=== PATIENT | male | born 1975 | race Caucasian/White ===

== ENCOUNTER 2016-10-23 04:27 | Inpatient (IN) | payer MEDICAID ==
[2016-10-23] MEDS ORDERED: Sodium Chloride 0.9% 1,000 ML IV ONE (05:05)
[2016-10-23] MEDS ORDERED: Ondansetron 4 MG/2 ML SDV IVPUSH ONE (05:05)
[2016-10-23] MEDS ORDERED: Ketorolac 30 MG/ML SDV IVPUSH ONE (05:05)
[2016-10-23 05:23] LABS: CHLORIDE,CL 97 mmol/L (98-110); SODIUM,NA 137 mmol/L (136-146)
[2016-10-23] MEDS ORDERED: Iopamidol 755 MG/ML 500 ML Multipack Bottle IVPUSH STA (05:36)
--- NOTE | 2016-10-23 06:18 | EDM.PDOC ---
ED HPI GENERAL MEDICAL PROBLEM - General Chief Complaint: Abdominal Pain Stated Complaint: PANCREATITIS Time Seen by Provider: 10/23/16 06:16 - History of Present Illness INITIAL COMMENTS - FREE TEXT/NARRATIVE: HISTORY AND PHYSICAL: History of present illness: Patient is a 41-year-old male tonsilliths or abdominal pain patient has history of pancreatitis states it started yesterday he said equivocal nausea denies vomiting fever chills diarrhea chest pain shortness of breath or other concern Review of systems: As per history of present illness and below otherwise all systems reviewed and negative. Past medical history: As per history of present illness and as reviewed below otherwise noncontributory. Surgical history: As per history of present illness and as reviewed below otherwise noncontributory. Social history: No reported history of drug or alcohol abuse. Family history: As per history of present illness and as reviewed below otherwise noncontributory. Physical exam: HEENT: Atraumatic, normocephalic, pupils reactive, negative for conjunctival pallor or scleral icterus, mucous membranes moist, throat clear, neck supple, nontender, trachea midline. Lungs: Clear to auscultation, breath sounds equal bilaterally, chest nontender. Heart: S1S2, regular, negative for clicks, rubs, or JVD. Abdomen: Soft, nondistended, no localized tenderness. Negative for masses or hepatosplenomegaly. Negative for costovertebral tenderness. Pelvis: Stable nontender. Genitourinary: Deferred. Rectal: Deferred. Extremities: Atraumatic, negative for cords or calf pain. Neurovascular unremarkable. Neuro: Awake, alert, oriented. Cranial nerves II through XII unremarkable. Cerebellum unremarkable. Motor and sensory unremarkable throughout. Exam nonfocal. Diagnostics: CBC CMP lipase UA CT abdomen and pelvis Therapeutics: Normal saline 1 L bolus Zofran 4 mg IV Toradol 30 mg IV Impression: #1 abdominal pain Definitive disposition and diagnosis as appropriate pending reevaluation and review of above. mid abdominal Pain Score (Numeric/FACES): 7 - Related Data Allergies Allergy/AdvReac Type Severity Reaction Status Date / Time Penicillins Allergy Cannot Verified 10/23/16 04:31 Remember Home Meds: Home Meds amLODIPine [Norvasc] 10 mg PO DAILY #30 tablet 03/07/15 [Rx] Pregabalin [Lyrica] 125 mg PO BID 10/23/16 [History] Venlafaxine HCl [Venlafaxine ER] 10/23/16 [History] chlordiazePOXIDE [Librium] 5 mg PO ASDIRECTED 10/23/16 [History] cloNIDine HCl [Catapres] 0.1 mg PO BID 10/23/16 [History] Past Medical History HEENT History: Reports: None Cardiovascular History: Reports: Hypertension Respiratory History: Reports: Pneumonia, recurrent Other Respiratory History: Pneumonia Gastrointestinal History: Reports: Pancreatitis Other Gastrointestinal History: Necrotizing Pancreatitis Genitourinary History: Reports: None Other Genitourinary History: vasectomy 13 years ago Musculoskeletal History: Reports: Fracture Other Musculoskeletal History: arm Neurological History: Reports: None Psychiatric History: Reports: Anxiety, Depression Endocrine/Metabolic History: Reports: None Hematologic History: Reports: None Immunologic History: Reports: None Oncologic (Cancer) History: Reports: None Dermatologic History: Reports: None - Infectious Disease History Infectious Disease History: Reports: Chicken pox - Past Surgical History Head Surgeries/Procedures: Reports: None HEENT Surgical History: Reports: Oral surgery, Other (see below) Other HEENT Surgeries/Procedures: wisdom tooth taken out. Cardiovascular Surgical History: Reports: None Respiratory Surgical History: Reports: None GI Surgical History: Reports: None Male Surgical History: Reports: Vasectomy Endocrine Surgical History: Reports: None Neurological Surgical History: Reports: None Musculoskeletal Surgical History: Reports: Arthroscopic knee, Other (see below) Other Musculoskeletal Surgeries/Procedures:: Knee surgery two months ago Oncologic Surgical History: Reports: None Social & Family History - Family History Family Medical History: Noncontributory HEENT: Reports: None Cardiac: Reports: Heart failure Respiratory: Reports: Asthma GI: Reports: None : Reports: None OBGYN: Reports: None Musculoskeletal: Reports: None Neurological: Reports: None Psychiatric: Reports: Anxiety Endocrine/Metabolic: Reports: Diabetes, type II Hematologic: Reports: None Immunologic: Reports: None Dermatologic: Reports: None Oncologic: Reports: Colon - Tobacco Use Smoking Status *Q: Current Every Day Smoker Years of Tobacco use: 25 Packs/Tins Daily: 1 Used Tobacco, but Quit: No Second Hand Smoke Exposure: Yes - Caffeine Use Caffeine Use: Reports: None - Alcohol Use Days Per Week of Alcohol Use: 3 Number of Drinks Per Day: 1 Total Drinks Per Week: 3 - Recreational Drug Use Recreational Drug Use: Yes Drug Use in Last 12 Months: Yes Recreational Drug Type: Reports: Marijuana/Hashish Other Recreational Drug Type: "pot" Recreational Drug Use Frequency: Weekly Recreational Drug Last Use: 06/18/16 ED ROS GENERAL - Review of Systems Review Of Systems: ROS reveals no pertinent complaints other than HPI. ED EXAM, GENERAL - Physical Exam Exam: See Below (See dictation) Course - Vital Signs Last Recorded V/S: Last Vital Signs Temp 36.4 C 10/23/16 04:40 Pulse 79 10/23/16 04:40 Resp 16 10/23/16 04:40 BP 133/89 10/23/16 04:40 Pulse Ox 97 10/23/16 04:40 - Orders/Labs/Meds Orders: Active Orders 24 hr Category Date Time Status Abdomen Pelvis w Cont [CT] Stat Exams 10/23/16 05:05 Taken Labs: Laboratory Tests 10/23/16 10/23/16 10/23/16 Range/Units 04:57 04:57 06:05 WBC 7.96 (4.0-11.0) K/uL RBC 5.29 (4.50-5.90) M/uL Hgb 16.6 (13.0-17.0) g/dL Hct 46.9 (38.0-50.0) % MCV 88.7 (80.0-98.0) fL MCH 31.4 (27.0-32.0) pg MCHC 35.4 (31.0-37.0) g/dL RDW Std Deviation 42.6 (28.0-62.0) fl RDW Coeff of Conrad 13 (11.0-15.0) % Plt Count 197 (150-400) K/uL MPV 10.90 (7.40-12.00) fL Neut % (Auto) 60.8 (48.0-80.0) % Lymph % (Auto) 31.7 (16.0-40.0) % [place]oca % (Auto) 4.6 (0.0-15.0) % Eos % (Auto) 1.9 (0.0-7.0) % Baso % (Auto) 1.0 (0.0-1.5) % Neut # 4.8 (1.4-5.7) K/uL Lymph # 2.5 H (0.6-2.4) K/uL Moca # 0.4 (0.0-0.8) K/uL Eos # 0.2 (0.0-0.7) K/uL Baso # 0.1 (0.0-0.1) K/uL Nucleated RBC % 0.0 /100WBC Nucleated RBCs # 0 K/uL Sodium 137 (136-146) mmol/L Potassium 3.8 (3.5-5.1) mmol/L Chloride 97 L (98-110) mmol/L Carbon Dioxide 22 (21-31) mmol/L BUN 11 (6.0-23.0) mg/dL Creatinine 1.0 (0.6-1.5) mg/dL Est Cr Clr Drug Dosing 113.40 mL/min Estimated GFR (MDRD) > 60.0 ml/min Glucose 176 H (60-110) mg/dL Calcium 9.6 (8.8-10.8) mg/dL Total Bilirubin 0.6 (0.1-1.5) mg/dL AST 131 H (5-40) IU/L ALT 170 H (8-54) IU/L Alkaline Phosphatase 51 (40-150) Total Protein 8.0 (6.0-8.0) g/dL Albumin 4.6 (3.5-5.0) g/dL Globulin 3.4 (2.0-3.5) g/dL Albumin/Globulin Ratio 1.4 (1.3-2.8) Amylase 181 H (10-90) U/L Lipase 250 H (7-80) U/L Urine Color YELLOW Urine Appearance CLEAR Urine pH 5.0 (5.0-8.0) Ur Specific [place] 1.025 (1.001-1.035) Urine Protein NEGATIVE (NEGATIVE) mg/dL Urine Glucose (UA) 100 H (NEGATIVE) mg/dL Urine Ketones TRACE H (NEGATIVE) mg/dL Urine Occult Blood NEGATIVE (NEGATIVE) Urine Nitrite NEGATIVE (NEGATIVE) Urine Bilirubin NEGATIVE (NEGATIVE) Urine Urobilinogen 0.2 (<2.0) EU/dL Ur Leukocyte Esterase NEGATIVE (NEGATIVE) Urine RBC NONE SEEN (0-2/HPF) Urine WBC NONE SEEN (0-5/HPF) Ur Epithelial Cells RARE (NONE-FEW) Urine Bacteria RARE (NEGATIVE) Meds: Medications Discontinued Medications Generic Name Dose Route Start Last Admin Trade Name Freq PRN Reason Stop Dose Admin Hydromorphone HCl 1 mg 10/23/16 06:45 Dilaudid IVPUSH 10/23/16 06:46 ONETIME ONE Sodium Chloride 1,000 mls @ 999 mls/hr 10/23/16 05:05 10/23/16 05:15 Normal Saline IV 10/23/16 06:05 999 mls/hr STAT ONE Administration Iopamidol 100 ml 10/23/16 05:36 10/23/16 05:37 Isovue Multipack-370 (76%) IVPUSH 10/23/16 05:37 100 ml ONETIME STA Administration Ketorolac Tromethamine 30 mg 10/23/16 05:05 10/23/16 05:17 Toradol IVPUSH 10/23/16 05:06 30 mg ONETIME ONE Administration Ondansetron HCl 4 mg 10/23/16 05:05 10/23/16 05:16 Zofran IVPUSH 10/23/16 05:06 4 mg ONETIME ONE Administration Departure - Departure Time of Disposition: 06:18 Disposition: Admitted As Inpatient 67 Condition: good Clinical Impression: Pancreatitis Referrals: Prasanth Verma MD [Primary Care Provider] - Forms: ED Department Discharge - My Orders Last 24 Hours: My Active Orders 10/23/16 05:05 Abdomen Pelvis w Cont [CT] Stat - Assessment/Plan Last 24 Hours: My Active Orders 10/23/16 05:05 Abdomen Pelvis w Cont [CT] Stat
[2016-10-23] MEDS ORDERED: HYDROmorphone 1 MG/ML Syringe IVPUSH ONE (06:45)
[2016-10-23] MEDS: Sodium Chloride 0.9% 1,000 ML IV SCH ×5 (08:35→22:11)
[2016-10-23] MEDS: HYDROmorphone 2 MG/ML Syringe IVPUSH PRN ×7 (08:35→22:08)
--- NOTE | 2016-10-23 09:40 | PCM.HP ---
<Zoe James M - Last Filed: 10/23/16 11:54> H&P History of Present Illness - General Date of Service: 10/23/16 Admit Problem/Dx: Admission Diagnosis/Problem Admission Diagnosis/Problem Pancreatitis Source of Information: Patient History Limitations: Reports: No limitations - History of Present Illness Initial Comments - Free Text/Narative: This 41 year old male well known to our facility for alcholic induced pancreatitis presented to the ED this morning with complaints of worsening epigastric pain. He reports this pain started yesterday afternoon and progressively worsened. He has continued to drink, reporting he drinks 1 pint of vodka/day but not on a daily basis. He could drink more or less than that as well. He has been following up with Dr. Verma in the clinic as well as with Samia Shultz NP. He was placed on LIbruin 5 mg TID PRN, which he rarely takes. HCTZ for BP but he does not like because "I get cotton mouth from". Lyrica was also started, which he feels has made his bilateral lower leg neuropathy a lot better, and is very please with this. He contiunes to smoke 1- 2 cigarettes daily, marijuana intermittently and drinking as stated above. He was discussing inpatient treatment with Dr. Verma, in [place] but has not made a commitment yet. He is due to follow up with Dr. Verma on october 30 and he is hoping to then make arrnagements to go to [place] for treatment. He reports he has not been in any MVC and physical altercations. He does report he falls frequently due to the neuropathy and drinking heavily. No fall that he can remember recently where he injury is RUQ. He does not and has not been taking any Tylenol. In the ED WBC WNL, BUN 11 Cr 1.0. Ua negative. Amylase 181, Lipase 250. AST 13, ALT 170. Bilirubin 0.6 Alk phos 51. Abd/Pelvis CT revealed mild acute uncomplicated pancreatitis with mild edema present about the pancreatic hed, no lesions and no fluid collection. There was noted a "relatively new small linear area of low attenuation in the anterior medial right liver lobe, has the characteristic appearance of a laceration vs atypical appearance of a focal fatty inflammation, no perihepatic fluid collections". the remainder of the exam was unremarkable. He was admitted from ED for acute alcoholic pancreatitis. mid abdominal Pain Score (Numeric/FACES): 3 - Related Data Allergies/Adverse Reactions: Allergies Allergy/AdvReac Type Severity Reaction Status Date / Time Penicillins Allergy Cannot Verified 10/23/16 04:31 Remember Home Medications: Home Meds amLODIPine [Norvasc] 10 mg PO DAILY #30 tablet 03/07/15 [Rx] Hydrochlorothiazide 25 mg PO DAILY 10/23/16 [History] Pregabalin [Lyrica] 150 mg PO BID 10/23/16 [History] Venlafaxine HCl [Venlafaxine HCl] 75 mg PO BID 10/23/16 [History] chlordiazePOXIDE HCl [Chlordiazepoxide HCl] 10 mg PO TID PRN 10/23/16 [History] cloNIDine HCl [Catapres] 0.1 mg PO BID 10/23/16 [History] Past Medical History HEENT History: Reports: None Cardiovascular History: Reports: Hypertension. Denies: Blood clots/VTE/DVT, CAD , High cholesterol, DC Respiratory History: Reports: Pneumonia, recurrent. Denies: Asthma, COPD Other Respiratory History: Pneumonia Gastrointestinal History: Reports: Pancreatitis Other Gastrointestinal History: Recurrent alcoholic pancreatitis, hx of Necrotizing Pancreatitis Genitourinary History: Reports: None Other Genitourinary History: vasectomy 13 years ago Musculoskeletal History: Reports: Fracture Other Musculoskeletal History: arm Neurological History: Reports: Neuropathy, peripheral Psychiatric History: Reports: Addiction, Anxiety, Depression Endocrine/Metabolic History: Reports: None. Denies: Diabetes, type II, Hypothyroidism Hematologic History: Reports: None Immunologic History: Reports: None Oncologic (Cancer) History: Reports: None Dermatologic History: Reports: None - Infectious Disease History Infectious Disease History: Reports: Chicken pox - Past Surgical History Head Surgeries/Procedures: Reports: None HEENT Surgical History: Reports: Oral surgery, Other (see below) Other HEENT Surgeries/Procedures: wisdom tooth taken out. Cardiovascular Surgical History: Reports: None Respiratory Surgical History: Reports: None GI Surgical History: Reports: None Male Surgical History: Reports: Vasectomy Endocrine Surgical History: Reports: None Neurological Surgical History: Reports: None Musculoskeletal Surgical History: Reports: Arthroscopic knee, Other (see below) Other Musculoskeletal Surgeries/Procedures:: Knee surgery two months ago Oncologic Surgical History: Reports: None Social & Family History - Family History Family Medical History: Noncontributory HEENT: Reports: None Cardiac: Reports: Heart failure Respiratory: Reports: Asthma GI: Reports: None : Reports: None OBGYN: Reports: None Musculoskeletal: Reports: None Neurological: Reports: None Psychiatric: Reports: Anxiety Endocrine/Metabolic: Reports: Diabetes, type II Hematologic: Reports: None Immunologic: Reports: None Dermatologic: Reports: None Oncologic: Reports: Colon - Tobacco Use Smoking Status *Q: Current Every Day Smoker Years of Tobacco use: 25 Packs/Tins Daily: 0.2 Used Tobacco, but Quit: No Second Hand Smoke Exposure: Yes - Caffeine Use Caffeine Use: Reports: None - Alcohol Use Days Per Week of Alcohol Use: 5 Number of Drinks Per Day: 5 Total Drinks Per Week: 25 Alcohol Use Frequency: Daily (to every other day, 1 pint of vodka on those days. ) - Recreational Drug Use Recreational Drug Use: Yes Drug Use in Last 12 Months: Yes Recreational Drug Type: Reports: Marijuana/Hashish Recreational Drug Use Frequency: Weekly Recreational Drug Route: Reports: Inhaled - Living Situation & Occupation Living situation: Reports: with significant other (Girlfriend Maggy) Occupation: unemployed H&P Review of Systems - Review of Systems: Review Of Systems: See Below General: Reports: no symptoms. Denies: fever, chills, malaise, weakness HEENT: Reports: no symptoms. Denies: contact lenses, post nasal drip, sinus congestion Pulmonary: Reports: no symptoms. Denies: shortness of breath, wheezing, cough, sputum Cardiovascular: Reports: no symptoms. Denies: chest pain, palpitations, edema Gastrointestinal: Reports: Abdominal pain. Denies: Black stool, Bloody stool, Decreased appetite, Nausea, Vomiting Genitourinary: Reports: no symptoms. Denies: dysuria, frequency, burning Musculoskeletal: Reports: no symptoms Skin: Reports: no symptoms Psychiatric: Reports: no symptoms Neurological: Reports: no symptoms Hematologic/Lymphatic: Reports: no symptoms Immunologic: Reports: no symptoms Exam - Exam Exam: See Below - Vital Signs Vital Signs: Last Vital Signs Temp 98.1 F 10/23/16 08:10 Pulse 71 10/23/16 08:10 Resp 17 10/23/16 08:10 BP 121/80 10/23/16 08:10 Pulse Ox 94 L 10/23/16 08:10 Weight: 189 lb 6.033 oz - Exam General: alert, oriented, cooperative HEENT: PERRLA, Hearing intact, Mucosa moist & pink, Nares patent, Normal nasal septum, Posterior pharynx clear, Conjunctiva clear, EOMI, EACs clear, TMs clear Neck: supple, trachea midline, 2 Lungs: Clear to auscultation, Normal respiratory effort Cardiovascular: regular rate, regular rhythm, normal S1, normal S2. No: systolic murmur Abdomen: normal bowel sounds, soft, tenderness (epigastric specifically but does have diffuse abdominal pain. ), other (no bruising noted to abdomen or back. ). No: organomegaly, peritoneal signs, distention, guarding, rigidity, rebound, hepatomegaly, splenomegaly Rectal (Males) Exam: Prostate normal Back Exam: normal inspection, full range of motion. No: CVA tenderness (L), CVA tenderness (R) Extremities: normal inspection, normal pulses Neuro Extensive - Mental Status: alert, oriented x3, normal mood/affect, normal cognition Neuro Extensive - Motor, Sensory, Reflexes: CN II-XII intact, normal gait, normal reflexes Psychiatric: alert, normal affect, normal mood - Patient Data Result Diagrams: 10/23/16 04:57 10/23/16 04:57 *Q Meaningful Use (ADM) - VTE *Q VTE Criteria *Q: - Stroke *Q Stroke Criteria *Q: - AMI *Q AMI Criteria *Q: - Problem List (1) Abdominal pain SNOMED Code(s): 90507031 ICD Code: R10.9 - UNSPECIFIED ABDOMINAL PAIN Status: Acute Priority: High Current Visit: No Qualifiers: Abdominal location: epigastric Qualified Code(s): R10.13 - Epigastric pain (2) Alcoholic pancreatitis SNOMED Code(s): 942216021 ICD Code: K85.2 - ALCOHOL INDUCED ACUTE PANCREATITIS * DO NOT USE * Status : Acute Current Visit: No Qualifiers: Chronicity: acute Acute pancreatitis complication: no infection or necrosis Qualified Code(s): K85.20 - Alcohol induced acute pancreatitis without necrosis or infection (3) Elevated LFTs SNOMED Code(s): 612969138 ICD Code: R94.5 - ABNORMAL RESULTS OF LIVER FUNCTION STUDIES Status: Acute Current Visit: No (4) HTN, Essential hypertension SNOMED Code(s): 34617767 ICD Code: I10 - ESSENTIAL (PRIMARY) HYPERTENSION Status: Chronic Priority : Medium Current Visit: No (5) Neuropathy SNOMED Code(s): 424042637 ICD Code: G62.9 - POLYNEUROPATHY, UNSPECIFIED Status: Chronic Current Visit: No Problem Details: due to alcohol Problem List Initiated/Reviewed/Updated: Yes Orders Last 24hrs: Active Orders 24 hr Category Date Time Status Intake and Output [RC] Q12H Care 10/23/16 08:09 Active May Shower [RC] ASDIRECTED Care 10/23/16 08:08 Active Up to Chair [RC] ASDIRECTED Care 10/23/16 08:08 Active VTE/DVT Education [RC] PER UNIT ROUTINE Care 10/23/16 08:08 Active Vital Signs [RC] Q4H Care 10/23/16 08:08 Active Nothing per Oral Now Diet [DIET] Diet 10/23/16 Breakfast Active Abdomen Ltd [US] Routine Exams 10/23/16 08:25 Taken CBC WITH AUTO DIFF [HEME] AM Lab 10/24/16 05:11 Ordered CBC WITH AUTO DIFF [HEME] AM Lab 10/25/16 05:11 Ordered CBC WITH AUTO DIFF [HEME] AM Lab 10/26/16 05:11 Ordered COMPREHENSIVE METABOLIC PN,CMP [CHEM] AM Lab 10/24/16 05:11 Ordered COMPREHENSIVE METABOLIC PN,CMP [CHEM] AM Lab 10/25/16 05:11 Ordered COMPREHENSIVE METABOLIC PN,CMP [CHEM] AM Lab 10/26/16 05:11 Ordered LIPASE [CHEM] Routine Lab 10/24/16 05:00 Ordered Enoxaparin [Lovenox] Med 10/23/16 09:00 Active 40 mg SUBCUT DAILY HYDROmorphone [Dilaudid] Med 10/23/16 08:08 Active 1 mg IVPUSH Q2H PRN Ondansetron [Zofran] Med 10/23/16 08:08 Active 4 mg IVPUSH Q4H PRN Pantoprazole [Protonix IV] 40 mg Med 10/23/16 09:00 Active Sodium Chloride 0.9% [Normal Saline] 10 ml IVPUSH BID Sodium Chloride 0.9% [Normal Saline] 1,000 ml Med 10/23/16 08:15 Active IV ASDIRECTED Sodium Chloride 0.9% [Normal Saline] 1,000 ml Med 10/23/16 08:15 Active IV ASDIRECTED Resuscitation Status Routine Resus Stat 10/23/16 08:08 Ordered Medication Orders Enoxaparin Sodium (Lovenox) 40 mg SUBCUT DAILY [facility] Hydromorphone HCl (Dilaudid) 1 mg IVPUSH Q2H PRN PRN Reason: Pain (severe 7-10) Last Admin: 10/23/16 08:35 Dose: 1 mg Sodium Chloride (Normal Saline) 1,000 mls @ 999 mls/hr IV ASDIRECTED PAU Stop: 10/24/16 09:16 Last Admin: 10/23/16 08:35 Dose: 999 mls/hr Pantoprazole Sodium 40 mg/ (Sodium Chloride) 10 mls @ 300 mls/hr IVPUSH BID PAU Sodium Chloride (Normal Saline) 1,000 mls @ 200 mls/hr IV ASDIRECTED PAU Ondansetron HCl (Zofran) 4 mg IVPUSH Q4H PRN PRN Reason: Nausea Assessment/Plan Comment:: This 41 year old male admitted with alcoholic pancreatitis 1. Acute pancreatitis: Give 2 L bolus now. Will continue 200 ml/hr IVFs. Monitor Lipase in am. Continue to dianetic counselor on abstinence of alcohol. Analgesia and anti-emetics PRN. 2. Elevated LFTs: Will monitor. Hepatic steatosis noted on U/S 3. Liver laceration vs atypical appearance of focal fatty inflammation: Spoke with Dr. Gómez, General Surgeon regarding CT finding. He reviewed images and felt potentially is a tiny laceration, but there was no blood or fluid within the abdomen. He recommended monitoring and obtaining coagulation studies. VTE dosing of Lovenox ok. Also recommended follow up in 2-3 weeks for imaging to ensure healing. I appreciated his assistance on this patient. 4. Neuropathy: Hold Lyrica until tolerating PO 5. HTN: Monitor. Hold HCTZ until tolerating PO. If needed will order IV medication if he becomes hypertensive. 6. ETOH abuse: Folic acid and thiamine supplementation. Will monitor Mg and Phosphorus CIWAA protocol. VTE: Lovenox. Dispo: 2-4 days pending improvement. <Hannah Jordan - Last Filed: 10/23/16 16:31> H&P History of Present Illness - General Admit Problem/Dx: Admission Diagnosis/Problem Admission Diagnosis/Problem Pancreatitis Exam - Vital Signs Vital Signs: Last Vital Signs Temp 98.1 F 10/23/16 08:10 Pulse 71 10/23/16 08:10 Resp 17 10/23/16 08:10 BP 121/80 10/23/16 08:10 Pulse Ox 94 L 10/23/16 08:10 - Patient Data Lab Results last 24 hrs: Laboratory Results - last 24 hr 10/23/16 Range/Units 10:32 INR 0.95 (0.86-1.11) APTT 28.8 (18.6-31.3) SEC Result Diagrams: 10/23/16 04:57 10/23/16 04:57 *Q Meaningful Use (ADM) - VTE *Q VTE Criteria *Q: - Stroke *Q Stroke Criteria *Q: - AMI *Q AMI Criteria *Q: Orders Last 24hrs: Active Orders 24 hr Category Date Time Status Intake and Output [RC] Q12H Care 10/23/16 08:09 Active May Shower [RC] ASDIRECTED Care 10/23/16 08:08 Active Up to Chair [RC] ASDIRECTED Care 10/23/16 08:08 Active VTE/DVT Education [RC] PER UNIT ROUTINE Care 10/23/16 08:08 Active Vital Signs [RC] Q4H Care 10/23/16 08:08 Active Nothing per Oral Now Diet [DIET] Diet 10/23/16 Breakfast Active Abdomen Ltd [US] Routine Exams 10/23/16 08:25 Taken CBC WITH AUTO DIFF [HEME] AM Lab 10/24/16 05:11 Ordered CBC WITH AUTO DIFF [HEME] AM Lab 10/25/16 05:11 Ordered CBC WITH AUTO DIFF [HEME] AM Lab 10/26/16 05:11 Ordered COMPREHENSIVE METABOLIC PN,CMP [CHEM] AM Lab 10/24/16 05:11 Ordered COMPREHENSIVE METABOLIC PN,CMP [CHEM] AM Lab 10/25/16 05:11 Ordered COMPREHENSIVE METABOLIC PN,CMP [CHEM] AM Lab 10/26/16 05:11 Ordered LIPASE [CHEM] Routine Lab 10/24/16 05:00 Ordered Enoxaparin [Lovenox] Med 10/23/16 09:00 Active 40 mg SUBCUT DAILY Folic Acid Med 10/23/16 09:00 Active 1 mg SUBCUT DAILY HYDROmorphone [Dilaudid] Med 10/23/16 08:08 Active 1 mg IVPUSH Q2H PRN Ondansetron [Zofran] Med 10/23/16 08:08 Active 4 mg IVPUSH Q4H PRN Pantoprazole [Protonix IV] 40 mg Med 10/23/16 09:00 Active Sodium Chloride 0.9% [Normal Saline] 10 ml IVPUSH BID Sodium Chloride 0.9% [Normal Saline] 1,000 ml Med 10/23/16 08:15 Active IV ASDIRECTED Sodium Chloride 0.9% [Normal Saline] 1,000 ml Med 10/23/16 08:15 Active IV ASDIRECTED Thiamine [Vitamin B-1] 100 mg Med 10/23/16 11:00 Active Sodium Chloride 0.9% [Normal Saline] 100 ml IV DAILY Resuscitation Status Routine Resus Stat 10/23/16 08:08 Ordered Medication Orders Enoxaparin Sodium (Lovenox) 40 mg SUBCUT DAILY [facility] Last Admin: 10/23/16 10:10 Dose: 40 mg Folic Acid (Folic Acid) 1 mg SUBCUT DAILY [facility] Hydromorphone HCl (Dilaudid) 1 mg IVPUSH Q2H PRN PRN Reason: Pain (severe 7-10) Last Admin: 10/23/16 10:40 Dose: 1 mg Admin: 10/23/16 08:35 Dose: 1 mg Sodium Chloride (Normal Saline) 1,000 mls @ 999 mls/hr IV ASDIRECTED [facility] Stop: 10/24/16 09:16 Last Admin: 10/23/16 10:09 Dose: 999 mls/hr Infusion: 10/23/16 09:36 Dose: 999 mls/hr Admin: 10/23/16 08:35 Dose: 999 mls/hr Pantoprazole Sodium 40 mg/ (Sodium Chloride) 10 mls @ 300 mls/hr IVPUSH BID [facility] Last Admin: 10/23/16 10:18 Dose: 300 mls/hr Sodium Chloride (Normal Saline) 1,000 mls @ 200 mls/hr IV ASDIRECTED [facility] Thiamine HCl 100 mg/ Sodium (Chloride) 101 mls @ 202 mls/hr IV DAILY [facility] Ondansetron HCl (Zofran) 4 mg IVPUSH Q4H PRN PRN Reason: Nausea Assessment/Plan Comment:: Patient was seen and examined , history , l;abs , reports were reviewed , discussed patient with Senior Merchandiser , agree with H and P
[2016-10-23] MEDS: Enoxaparin 40 MG/0.4 ML Syringe SUBCUT SCH (10:10)
[2016-10-23] MEDS: Pantoprazole 40 MG in Sodium Chloride 0.9% 10 ML IVPUSH SCH ×2 (10:18→20:00)
[2016-10-23] MEDS ORDERED: Thiamine 200 MG/2 ML MDV IV SCH (10:30)
[2016-10-23] MEDS: Folic Acid 50 MG/10 ML MDV SUBCUT SCH (11:15)
[2016-10-23] MEDS: Thiamine 100 MG in Sodium Chloride 0.9% 100 ML IV SCH (11:16)
[2016-10-23] MEDS ORDERED: LORazepam 2 MG/ML MDV IVPUSH PRN (11:56)
--- NOTE | 2016-10-23 15:17 | CT ---
EXAM DATE: 10/23/16 PATIENT'S AGE: 41 Patient: ERICKA ROGEL Facility: [place], [place] Site . Site : 1975 Study: CT Abdomen/Pelvis [id number]/8/2017 6:04:16 AM Ordering Physician: Doctor Arce Final Report: INDICATION: Lower abdominal pain. History of pancreatitis. TECHNIQUE: CT abdomen and pelvis acquired with IV contrast. COMPARISON: 10/29/2015. FINDINGS: LOWER CHEST: Unremarkable. LIVER: The liver is normal in caliber. There is diffuse fatty infiltration. There is a new somewhat linear area of low attenuation in the medial right lobe anteriorly. No other focal lesion. GALLBLADDER AND BILE DUCTS: Unremarkable. No stones or inflammation. No biliary dilatation. PANCREAS: Mild edema is present about the pancreatic head. No focal lesions. Pancreatic duct is normal in caliber. No peripancreatic fluid collection. SPLEEN: Unremarkable. Normal in size. No masses. ADRENAL GLANDS: Unremarkable. No nodules. KIDNEYS: Unremarkable. No masses, stones, or hydronephrosis. GI TRACT: Unremarkable. Normal in caliber. No sign of mass or inflammation. VASCULATURE: Unremarkable. LYMPH NODES: No lymphadenopathy. OMENTUM/PERITONEUM: Unremarkable. No sign of mass or infiltration. No free air or significant free fluid. PELVIS: Unremarkable. BONES: Unremarkable for age. IMPRESSION: 1. Mild acute uncomplicated pancreatitis. 2. New relatively small linear area of low attenuation in the anterior medial right liver lobe. This has the characteristic appearance of a laceration versus an atypical appearance of focal fatty inflammation. There are no perihepatic fluid collections. 3. Remainder of the exam is unremarkable. Dictated by Mikel Orr MD @ 10/23/2016 6:36:52 AM Dictated by: Mikel Orr MD @ 10/23/2016 06:37:01 (Electronic Signature) Report Signed by Proxy and Original Signed Document filed in the Medical Record. [facility]
--- NOTE | 2016-10-23 15:57 | US ---
EXAM DATE: 10/23/16 PATIENT'S AGE: 41 Patient: ERICKA ROGEL Facility: [place], [place] Site . Site : 1975 Study: US Abdomen [id number]/8/2017 9:30:37 AM Ordering Physician: Nikki Young Final Report: INDICATION: Elevated liver function tests. TECHNIQUE: Ultrasound abdomen limited. Sonographic images of the right upper quadrant were obtained using thomas-scale and color Doppler images. COMPARISON: Ultrasound abdomen July 21, 2016. CT abdomen pelvis October 23, 2016. FINDINGS: Liver: Normal in size. Diffusely echogenic consistent with fatty infiltration. No masses. No intrahepatic biliary dilatation. Gallbladder: No stones or sludge. Normal wall thickness. No pericholecystic fluid. Common bile duct: 3 mm. Pancreas: Normal. Right kidney: 12 cm. Normal echotexture and cortex. No masses, stones, or hydronephrosis. Vasculature: Proximal abdominal aorta and IVC are normal. IMPRESSION: There is hepatic steatosis. Otherwise unremarkable right upper quadrant ultrasound. Dictated by Mikel Orr MD @ Oct 23 2016 10:06AM (Electronic Signature) Report Signed by Proxy and Original Signed Document filed in the Medical Record. [facility]
[2016-10-23] MEDS ORDERED: Metoprolol Tartrate 5 MG/5 ML SDV IVPUSH PRN (16:06)
[2016-10-23] MEDS: Ondansetron 4 MG/2 ML SDV IVPUSH PRN (17:27)
[2016-10-24] MEDS: Ondansetron 4 MG/2 ML SDV IVPUSH PRN ×2 (00:18→08:48)
[2016-10-24] MEDS: HYDROmorphone 2 MG/ML Syringe IVPUSH PRN ×12 (00:19→23:12)
[2016-10-24] MEDS: Sodium Chloride 0.9% 1,000 ML IV SCH ×4 (03:25→19:09)
[2016-10-24 05:59] LABS: CHLORIDE,CL 97 mmol/L (98-110); SODIUM,NA 134 mmol/L (136-146)
--- NOTE | 2016-10-24 08:08 | PCM.PN ---
<Zoe James M - Last Filed: 10/24/16 10:41> - General Info Date of Service: 10/24/16 Admission Dx/Problem (Free Text): Admission Diagnosis/Problem Admission Diagnosis/Problem Pancreatitis Subjective Update: Had rough night. Nausea and pain. Feels somewhat tremulous. No appetite and still nauseated. No chest pain or SOB. Functional Status: Reports: ambulating, urinating. Denies: pain controlled, tolerating diet - Review of Systems General: Reports: no symptoms. Denies: fever HEENT: Reports: no symptoms Pulmonary: Reports: no symptoms. Denies: shortness of breath, cough, sputum Cardiovascular: Reports: no symptoms. Denies: chest pain, palpitations, edema Gastrointestinal: Reports: Abdominal pain (epigastric). Denies: Nausea, Vomiting Genitourinary: Reports: no symptoms. Denies: dysuria, frequency, burning Musculoskeletal: Reports: no symptoms Skin: Reports: no symptoms Neurological: Reports: no symptoms Psychiatric: Reports: no symptoms - Patient Data Vitals - most recent: Last Vital Signs Temp 98.9 F 10/24/16 03:43 Pulse 86 10/24/16 03:43 Resp 18 10/24/16 03:43 BP 169/103 H 10/24/16 03:43 Pulse Ox 94 L 10/24/16 03:43 Weight - most recent: 189 lb 6.033 oz I&O - last 24 hours: Intake & Output 10/23/16 10/24/16 10/24/16 22:59 06:59 14:59 Intake Total 3790 2196 Output Total 1073 3625 Balance 2715 -1429 Lab Results last 24 hrs: Laboratory Results - last 24 hr 10/23/16 10/24/16 10/24/16 Range/Units 10:32 05:04 05:04 WBC 10.96 (4.0-11.0) K/uL RBC 5.04 (4.50-5.90) M/uL Hgb 15.6 (13.0-17.0) g/dL Hct 44.9 (38.0-50.0) % MCV 89.1 (80.0-98.0) fL MCH 31.0 (27.0-32.0) pg MCHC 34.7 (31.0-37.0) g/dL RDW Std Deviation 41.7 (28.0-62.0) fl RDW Coeff of Conrad 13 (11.0-15.0) % Plt Count 170 (150-400) K/uL MPV 11.40 (7.40-12.00) fL Neut % (Auto) 79.7 (48.0-80.0) % Lymph % (Auto) 10.6 L (16.0-40.0) % Addison % (Auto) 8.9 (0.0-15.0) % Eos % (Auto) 0.5 (0.0-7.0) % Baso % (Auto) 0.3 (0.0-1.5) % Neut # 8.8 H (1.4-5.7) K/uL Lymph # 1.2 (0.6-2.4) K/uL Addison # 1.0 H (0.0-0.8) K/uL Eos # 0.1 (0.0-0.7) K/uL Baso # 0.0 (0.0-0.1) K/uL Nucleated RBC % 0.0 /100WBC Nucleated RBCs # 0 K/uL INR 0.95 (0.86-1.11) APTT 28.8 (18.6-31.3) SEC Sodium (136-146) mmol/L Potassium (3.5-5.1) mmol/L Chloride (98-110) mmol/L Carbon Dioxide (21-31) mmol/L BUN (6.0-23.0) mg/dL Creatinine (0.6-1.5) mg/dL Est Cr Clr Drug Dosing mL/min Estimated GFR (MDRD) ml/min Glucose (60-110) mg/dL Calcium (8.8-10.8) mg/dL Total Bilirubin (0.1-1.5) mg/dL AST (5-40) IU/L ALT (8-54) IU/L Alkaline Phosphatase (40-150) Total Protein (6.0-8.0) g/dL Albumin (3.5-5.0) g/dL Globulin (2.0-3.5) g/dL Albumin/Globulin Ratio (1.3-2.8) Lipase 587 H (7-80) U/L 03/09/17 Range/Units 05:04 WBC (4.0-11.0) K/uL RBC (4.50-5.90) M/uL Hgb (13.0-17.0) g/dL Hct (38.0-50.0) % MCV (80.0-98.0) fL MCH (27.0-32.0) pg MCHC (31.0-37.0) g/dL RDW Std Deviation (28.0-62.0) fl RDW Coeff of Conrad (11.0-15.0) % Plt Count (150-400) K/uL MPV (7.40-12.00) fL Neut % (Auto) (48.0-80.0) % Lymph % (Auto) (16.0-40.0) % Addison % (Auto) (0.0-15.0) % Eos % (Auto) (0.0-7.0) % Baso % (Auto) (0.0-1.5) % Neut # (1.4-5.7) K/uL Lymph # (0.6-2.4) K/uL Addison # (0.0-0.8) K/uL Eos # (0.0-0.7) K/uL Baso # (0.0-0.1) K/uL Nucleated RBC % /100WBC Nucleated RBCs # K/uL INR (0.86-1.11) APTT (18.6-31.3) SEC Sodium 134 L (136-146) mmol/L Potassium 4.1 (3.5-5.1) mmol/L Chloride 97 L (98-110) mmol/L Carbon Dioxide 22 (21-31) mmol/L BUN 5 L (6.0-23.0) mg/dL Creatinine 0.7 (0.6-1.5) mg/dL Est Cr Clr Drug Dosing 163.10 mL/min Estimated GFR (MDRD) > 60.0 ml/min Glucose 135 H (60-110) mg/dL Calcium 7.8 L (8.8-10.8) mg/dL Total Bilirubin 0.9 (0.1-1.5) mg/dL AST 77 H (5-40) IU/L ALT 126 H (8-54) IU/L Alkaline Phosphatase 52 (40-150) Total Protein 7.0 (6.0-8.0) g/dL Albumin 4.3 (3.5-5.0) g/dL Globulin 2.7 (2.0-3.5) g/dL Albumin/Globulin Ratio 1.6 (1.3-2.8) Lipase (7-80) U/L Med Orders - Current: Current Medications Enoxaparin Sodium (Lovenox) 40 mg SUBCUT DAILY [facility] Last Admin: 10/23/16 10:10 Dose: 40 mg Folic Acid (Folic Acid) 1 mg SUBCUT DAILY [facility] Last Admin: 10/23/16 11:15 Dose: 1 mg Hydromorphone HCl (Dilaudid) 1 mg IVPUSH Q2H PRN PRN Reason: Pain (severe 7-10) Last Admin: 10/24/16 06:25 Dose: 1 mg Sodium Chloride (Normal Saline) 1,000 mls @ 999 mls/hr IV ASDIRECTED [facility] Stop: 10/24/16 09:16 Last Admin: 10/23/16 10:09 Dose: 999 mls/hr Pantoprazole Sodium 40 mg/ (Sodium Chloride) 10 mls @ 300 mls/hr IVPUSH BID [facility] Last Admin: 10/23/16 20:00 Dose: 300 mls/hr Sodium Chloride (Normal Saline) 1,000 mls @ 200 mls/hr IV ASDIRECTED [facility] Last Admin: 10/24/16 03:25 Dose: 200 mls/hr Thiamine HCl 100 mg/ Sodium (Chloride) 101 mls @ 202 mls/hr IV DAILY [facility] Last Admin: 10/23/16 11:16 Dose: 202 mls/hr Lorazepam (Ativan) 0 mg IVPUSH Q4H PRN; Protocol PRN Reason: CIWAA Metoprolol Tartrate (Lopressor) 5 mg IVPUSH Q6H PRN PRN Reason: Hypertension Last Admin: 10/24/16 03:35 Dose: 5 mg Ondansetron HCl (Zofran) 4 mg IVPUSH Q4H PRN PRN Reason: Nausea Last Admin: 10/24/16 00:18 Dose: 4 mg Discontinued Medications Hydromorphone HCl (Dilaudid) 1 mg IVPUSH ONETIME ONE Stop: 10/23/16 06:46 Last Admin: 10/23/16 06:49 Dose: 1 mg Sodium Chloride (Normal Saline) 1,000 mls @ 999 mls/hr IV STAT ONE Stop: 10/23/16 06:05 Last Admin: 10/23/16 05:15 Dose: 999 mls/hr Iopamidol (Isovue Multipack-370 (76%)) 100 ml IVPUSH ONETIME STA Stop: 10/23/16 05:37 Last Admin: 10/23/16 05:37 Dose: 100 ml Ketorolac Tromethamine (Toradol) 30 mg IVPUSH ONETIME ONE Stop: 10/23/16 05:06 Last Admin: 10/23/16 05:17 Dose: 30 mg Ondansetron HCl (Zofran) 4 mg IVPUSH ONETIME ONE Stop: 10/23/16 05:06 Last Admin: 10/23/16 05:16 Dose: 4 mg Thiamine HCl (Vitamin B-1) 100 mg IV DAILY PAU Last Admin: 10/23/16 10:41 Dose: Not Given - Exam General: alert, oriented, cooperative HEENT: Pupils equal, Pupils reactive, EOMI, Mucous membr. moist/pink Neck: supple Lungs: Clear to auscultation, Normal respiratory effort Cardiovascular: regular rate, regular rhythm, no murmurs Abdomen: bowel sounds present, soft, no distension, tenderness (diffuse) Extremities: no edema, normal pulses Neurological: no new focal deficit Psy/Mental Status: alert, normal affect, normal mood - Problem List & Annotations (1) Abdominal pain SNOMED Code(s): 38462756 Code(s): R10.9 - UNSPECIFIED ABDOMINAL PAIN Status: Acute Priority: High Current Visit: No Qualifiers: Abdominal location: epigastric Qualified Code(s): R10.13 - Epigastric pain (2) Alcoholic pancreatitis SNOMED Code(s): 223508461 Code(s): K85.2 - ALCOHOL INDUCED ACUTE PANCREATITIS * DO NOT USE * Status: Acute Current Visit: No Qualifiers: Chronicity: acute Acute pancreatitis complication: no infection or necrosis Qualified Code(s): K85.20 - Alcohol induced acute pancreatitis without necrosis or infection (3) Elevated LFTs SNOMED Code(s): 976831900 Code(s): R94.5 - ABNORMAL RESULTS OF LIVER FUNCTION STUDIES Status: Acute Current Visit: No (4) HTN, Essential hypertension SNOMED Code(s): 57543327 Code(s): I10 - ESSENTIAL (PRIMARY) HYPERTENSION Status: Chronic Priority : Medium Current Visit: No (5) Neuropathy SNOMED Code(s): 819938149 Code(s): G62.9 - POLYNEUROPATHY, UNSPECIFIED Status: Chronic Current Visit: No Annotation/Comment:: due to alcohol - Problem List Review Problem List Initiated/Reviewed/Updated: Yes - My Orders Last 24 Hours: My Active Orders 10/23/16 08:08 May Shower [RC] ASDIRECTED Up to Chair [RC] ASDIRECTED VTE/DVT Education [RC] PER UNIT ROUTINE Vital Signs [RC] Q4H HYDROmorphone [Dilaudid] 1 mg IVPUSH Q2H PRN Ondansetron [Zofran] 4 mg IVPUSH Q4H PRN Resuscitation Status Routine 10/23/16 08:09 Intake and Output [RC] Q12H 10/23/16 08:15 Sodium Chloride 0.9% [Normal Saline] 1,000 ml IV ASDIRECTED Sodium Chloride 0.9% [Normal Saline] 1,000 ml IV ASDIRECTED 10/23/16 09:00 Enoxaparin [Lovenox] 40 mg SUBCUT DAILY Folic Acid 1 mg SUBCUT DAILY Pantoprazole [Protonix IV] 40 mg Sodium Chloride 0.9% [Normal Saline] 10 ml IVPUSH BID 10/23/16 11:56 CIWAA Assessment [RC] Q4H LORazepam [Ativan] See Protocol IVPUSH Q4H PRN 10/23/16 16:06 Metoprolol Tartrate [Lopressor] 5 mg IVPUSH Q6H PRN 10/25/16 05:11 CBC WITH AUTO DIFF [HEME] AM COMPREHENSIVE METABOLIC PN,CMP [CHEM] AM 10/26/16 05:11 CBC WITH AUTO DIFF [HEME] AM COMPREHENSIVE METABOLIC PN,CMP [CHEM] AM - Plan Plan:: This 41 year old male admitted with alcoholic pancreatitis 1. Acute pancreatitis: Continue 200 ml/hr IVFs. Lipase elevated, 580 today. Analgesia and anti-emetics PRN. 2. Elevated LFTs: Improving. Will monitor. Hepatic steatosis noted on U/S 3. Liver laceration vs atypical appearance of focal fatty inflammation: Spoke with Dr. Gómez, General Surgeon regarding CT finding. He reviewed images and felt potentially is a tiny laceration, but there was no blood or fluid within the abdomen. He recommended monitoring and obtaining coagulation studies. VTE dosing of Lovenox ok. Also recommended follow up in 2-3 weeks for imaging to ensure healing. I appreciated his assistance on this patient. 4. Neuropathy: Hold Lyrica until tolerating PO 5. HTN: Monitor. Hold HCTZ until tolerating PO. Lopressor IV PRN hypertension. 6. ETOH abuse: Folic acid and thiamine supplementation. Will monitor Mg and Phosphorus CIWAA protocol. VTE: Lovenox. Dispo: 2-4 days pending improvement. <Hannah Jordan - Last Filed: 10/24/16 20:33> - Patient Data Vitals - most recent: Last Vital Signs Temp 98.4 F 10/24/16 12:00 Pulse 82 10/24/16 12:00 Resp 22 H 10/24/16 12:00 BP 156/94 H 10/24/16 12:00 Pulse Ox 98 10/24/16 12:00 I&O - last 24 hours: Intake & Output 10/23/16 10/24/16 10/24/16 22:59 06:59 14:59 Intake Total 3790 2196 1973 Output Total 1076 5385 Balance 3525 -3470 1973 Lab Results last 24 hrs: Laboratory Results - last 24 hr 10/24/16 10/24/16 10/24/16 Range/Units 05:04 05:04 05:04 WBC 10.96 (4.0-11.0) K/uL RBC 5.04 (4.50-5.90) M/uL Hgb 15.6 (13.0-17.0) g/dL Hct 44.9 (38.0-50.0) % MCV 89.1 (80.0-98.0) fL MCH 31.0 (27.0-32.0) pg MCHC 34.7 (31.0-37.0) g/dL RDW Std Deviation 41.7 (28.0-62.0) fl RDW Coeff of Conrad 13 (11.0-15.0) % Plt Count 170 (150-400) K/uL MPV 11.40 (7.40-12.00) fL Neut % (Auto) 79.7 (48.0-80.0) % Lymph % (Auto) 10.6 L (16.0-40.0) % Addison % (Auto) 8.9 (0.0-15.0) % Eos % (Auto) 0.5 (0.0-7.0) % Baso % (Auto) 0.3 (0.0-1.5) % Neut # 8.8 H (1.4-5.7) K/uL Lymph # 1.2 (0.6-2.4) K/uL Addison # 1.0 H (0.0-0.8) K/uL Eos # 0.1 (0.0-0.7) K/uL Baso # 0.0 (0.0-0.1) K/uL Nucleated RBC % 0.0 /100WBC Nucleated RBCs # 0 K/uL Sodium 134 L (136-146) mmol/L Potassium 4.1 (3.5-5.1) mmol/L Chloride 97 L (98-110) mmol/L Carbon Dioxide 22 (21-31) mmol/L BUN 5 L (6.0-23.0) mg/dL Creatinine 0.7 (0.6-1.5) mg/dL Est Cr Clr Drug Dosing 163.10 mL/min Estimated GFR (MDRD) > 60.0 ml/min Glucose 135 H (60-110) mg/dL Calcium 7.8 L (8.8-10.8) mg/dL Total Bilirubin 0.9 (0.1-1.5) mg/dL AST 77 H (5-40) IU/L ALT 126 H (8-54) IU/L Alkaline Phosphatase 52 (40-150) Total Protein 7.0 (6.0-8.0) g/dL Albumin 4.3 (3.5-5.0) g/dL Globulin 2.7 (2.0-3.5) g/dL Albumin/Globulin Ratio 1.6 (1.3-2.8) Lipase 587 H (7-80) U/L Med Orders - Current: Current Medications Enoxaparin Sodium (Lovenox) 40 mg SUBCUT DAILY [facility] Last Admin: 10/24/16 08:52 Dose: 40 mg Folic Acid (Folic Acid) 1 mg SUBCUT DAILY [facility] Last Admin: 10/24/16 08:52 Dose: 1 mg Hydromorphone HCl (Dilaudid) 2 mg IVPUSH Q2H PRN PRN Reason: Pain (severe 7-10) Last Admin: 10/24/16 13:02 Dose: 2 mg Pantoprazole Sodium 40 mg/ (Sodium Chloride) 10 mls @ 300 mls/hr IVPUSH BID [facility] Last Admin: 10/24/16 08:46 Dose: 300 mls/hr Sodium Chloride (Normal Saline) 1,000 mls @ 200 mls/hr IV ASDIRECTED [facility] Last Admin: 10/24/16 13:44 Dose: 200 mls/hr Thiamine HCl 100 mg/ Sodium (Chloride) 101 mls @ 202 mls/hr IV DAILY [facility] Last Admin: 10/24/16 08:50 Dose: 202 mls/hr Lorazepam (Ativan) 0 mg IVPUSH Q4H PRN; Protocol PRN Reason: CIWAA Metoprolol Tartrate (Lopressor) 5 mg IVPUSH Q6H PRN PRN Reason: Hypertension Last Admin: 10/24/16 03:35 Dose: 5 mg Ondansetron HCl (Zofran) 4 mg IVPUSH Q4H PRN PRN Reason: Nausea Last Admin: 10/24/16 08:48 Dose: 4 mg Promethazine HCl (Phenergan) 25 mg IM Q6H PRN PRN Reason: Nausea Last Admin: 10/24/16 13:02 Dose: 25 mg Discontinued Medications Hydromorphone HCl (Dilaudid) 1 mg IVPUSH ONETIME ONE Stop: 10/23/16 06:46 Last Admin: 10/23/16 06:49 Dose: 1 mg Hydromorphone HCl (Dilaudid) 1 mg IVPUSH Q2H PRN PRN Reason: Pain (severe 7-10) Last Admin: 10/24/16 08:48 Dose: 1 mg Sodium Chloride (Normal Saline) 1,000 mls @ 999 mls/hr IV STAT ONE Stop: 10/23/16 06:05 Last Admin: 10/23/16 05:15 Dose: 999 mls/hr Sodium Chloride (Normal Saline) 1,000 mls @ 999 mls/hr IV ASDIRECTED [facility] Stop: 10/24/16 09:16 Last Admin: 10/23/16 10:09 Dose: 999 mls/hr Iopamidol (Isovue Multipack-370 (76%)) 100 ml IVPUSH ONETIME STA Stop: 10/23/16 05:37 Last Admin: 10/23/16 05:37 Dose: 100 ml Ketorolac Tromethamine (Toradol) 30 mg IVPUSH ONETIME ONE Stop: 10/23/16 05:06 Last Admin: 10/23/16 05:17 Dose: 30 mg Ondansetron HCl (Zofran) 4 mg IVPUSH ONETIME ONE Stop: 10/23/16 05:06 Last Admin: 10/23/16 05:16 Dose: 4 mg Thiamine HCl (Vitamin B-1) 100 mg IV DAILY PAU Last Admin: 10/23/16 10:41 Dose: Not Given - Plan Plan:: 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
[2016-10-24] MEDS: Pantoprazole 40 MG in Sodium Chloride 0.9% 10 ML IVPUSH SCH ×2 (08:46→20:05)
[2016-10-24] MEDS: Thiamine 100 MG in Sodium Chloride 0.9% 100 ML IV SCH (08:50)
[2016-10-24] MEDS: Folic Acid 50 MG/10 ML MDV SUBCUT SCH (08:52)
[2016-10-24] MEDS: Enoxaparin 40 MG/0.4 ML Syringe SUBCUT SCH (08:52)
[2016-10-24] MEDS ORDERED: Promethazine 25 MG/ML SDV IM PRN (10:55)
[2016-10-25] MEDS: Sodium Chloride 0.9% 1,000 ML IV SCH ×5 (00:13→20:48)
[2016-10-25] MEDS: HYDROmorphone 2 MG/ML Syringe IVPUSH PRN ×10 (01:40→22:24)
[2016-10-25 05:42] LABS: CHLORIDE,CL 104 mmol/L (98-110); SODIUM,NA 138 mmol/L (136-146)
[2016-10-25] MEDS ORDERED: Calcium Carbonate 500 MG Tab.Chew PO ONE (07:46)
--- NOTE | 2016-10-25 07:47 | PCM.PN ---
- General Info Date of Service: 10/25/16 Admission Dx/Problem (Free Text): Admission Diagnosis/Problem Admission Diagnosis/Problem Pancreatitis Subjective Update: Was able to sleep a little last night. Nausea is improving, Phenergan helped yesterday. Pain is well controlled with Dilaudid but he is using it every 2-3 hrs still. Not feeling like trying any CL this morning. No chest pain or SOB. Passing flatus, has been up ambulating in the hallway. Functional Status: Reports: pain controlled, ambulating, urinating. Denies: tolerating diet - Review of Systems General: Reports: no symptoms. Denies: fever HEENT: Reports: no symptoms. Denies: sinus congestion, sore throat, rhinitis Pulmonary: Reports: no symptoms. Denies: shortness of breath, cough, sputum Cardiovascular: Reports: no symptoms. Denies: chest pain, palpitations, edema Gastrointestinal: Reports: Abdominal pain (diffuse ), Decreased appetite, Flatus , Nausea (improved greatly) Genitourinary: Reports: no symptoms. Denies: dysuria, frequency, burning, pain Musculoskeletal: Reports: no symptoms Skin: Reports: no symptoms Neurological: Reports: no symptoms Psychiatric: Reports: no symptoms - Patient Data Vitals - most recent: Last Vital Signs Temp 100.2 F 10/25/16 04:00 Pulse 91 10/25/16 04:00 Resp 12 10/25/16 04:00 BP 138/85 10/25/16 04:00 Pulse Ox 96 10/25/16 04:00 Weight - most recent: 85.9 kg I&O - last 24 hours: Intake & Output 10/24/16 10/25/16 10/25/16 22:59 06:59 14:59 Intake Total 50 3337 Output Total 1650 2250 Balance -1600 1087 Lab Results last 24 hrs: Laboratory Results - last 24 hr 10/25/16 10/25/16 Range/Units 04:52 04:52 WBC 7.11 (4.0-11.0) K/uL RBC 4.32 L (4.50-5.90) M/uL Hgb 13.4 (13.0-17.0) g/dL Hct 39.8 (38.0-50.0) % MCV 92.1 (80.0-98.0) fL MCH 31.0 (27.0-32.0) pg MCHC 33.7 (31.0-37.0) g/dL RDW Std Deviation 43.9 (28.0-62.0) fl RDW Coeff of Conrad 13 (11.0-15.0) % Plt Count 133 L (150-400) K/uL MPV 11.40 (7.40-12.00) fL Neut % (Auto) 66.1 (48.0-80.0) % Lymph % (Auto) 22.1 (16.0-40.0) % Burke % (Auto) 9.7 (0.0-15.0) % Eos % (Auto) 1.8 (0.0-7.0) % Baso % (Auto) 0.3 (0.0-1.5) % Neut # 4.7 (1.4-5.7) K/uL Lymph # 1.6 (0.6-2.4) K/uL Burke # 0.7 (0.0-0.8) K/uL Eos # 0.1 (0.0-0.7) K/uL Baso # 0.0 (0.0-0.1) K/uL Nucleated RBC % 0.0 /100WBC Nucleated RBCs # 0 K/uL Sodium 138 (136-146) mmol/L Potassium 4.1 (3.5-5.1) mmol/L Chloride 104 (98-110) mmol/L Carbon Dioxide 20 L (21-31) mmol/L BUN 5 L (6.0-23.0) mg/dL Creatinine 0.7 (0.6-1.5) mg/dL Est Cr Clr Drug Dosing 163.10 mL/min Estimated GFR (MDRD) > 60.0 ml/min Glucose 74 (60-110) mg/dL Calcium 7.2 L (8.8-10.8) mg/dL Total Bilirubin 1.0 (0.1-1.5) mg/dL AST 56 H (5-40) IU/L ALT 80 H (8-54) IU/L Alkaline Phosphatase 43 (40-150) Total Protein 6.0 (6.0-8.0) g/dL Albumin 3.6 (3.5-5.0) g/dL Globulin 2.4 (2.0-3.5) g/dL Albumin/Globulin Ratio 1.5 (1.3-2.8) Med Orders - Current: Current Medications Calcium Carbonate/Glycine (Tums) 1,000 mg PO ONETIME ONE Stop: 10/25/16 07:47 Enoxaparin Sodium (Lovenox) 40 mg SUBCUT DAILY [facility] Last Admin: 10/24/16 08:52 Dose: 40 mg Folic Acid (Folic Acid) 1 mg SUBCUT DAILY [facility] Last Admin: 10/24/16 08:52 Dose: 1 mg Hydromorphone HCl (Dilaudid) 2 mg IVPUSH Q2H PRN PRN Reason: Pain (severe 7-10) Last Admin: 10/25/16 06:44 Dose: 2 mg Pantoprazole Sodium 40 mg/ (Sodium Chloride) 10 mls @ 300 mls/hr IVPUSH BID [facility] Last Admin: 10/24/16 20:05 Dose: 300 mls/hr Sodium Chloride (Normal Saline) 1,000 mls @ 200 mls/hr IV ASDIRECTED [facility] Last Admin: 10/25/16 05:04 Dose: 200 mls/hr Thiamine HCl 100 mg/ Sodium (Chloride) 101 mls @ 202 mls/hr IV DAILY [facility] Last Admin: 10/24/16 08:50 Dose: 202 mls/hr Lorazepam (Ativan) 0 mg IVPUSH Q4H PRN; Protocol PRN Reason: CIWAA Metoprolol Tartrate (Lopressor) 5 mg IVPUSH Q6H PRN PRN Reason: Hypertension Last Admin: 10/24/16 03:35 Dose: 5 mg Ondansetron HCl (Zofran) 4 mg IVPUSH Q4H PRN PRN Reason: Nausea Last Admin: 10/24/16 08:48 Dose: 4 mg Promethazine HCl (Phenergan) 25 mg IM Q6H PRN PRN Reason: Nausea Last Admin: 10/24/16 13:02 Dose: 25 mg Discontinued Medications Hydromorphone HCl (Dilaudid) 1 mg IVPUSH ONETIME ONE Stop: 10/23/16 06:46 Last Admin: 10/23/16 06:49 Dose: 1 mg Hydromorphone HCl (Dilaudid) 1 mg IVPUSH Q2H PRN PRN Reason: Pain (severe 7-10) Last Admin: 10/24/16 08:48 Dose: 1 mg Sodium Chloride (Normal Saline) 1,000 mls @ 999 mls/hr IV STAT ONE Stop: 10/23/16 06:05 Last Admin: 10/23/16 05:15 Dose: 999 mls/hr Sodium Chloride (Normal Saline) 1,000 mls @ 999 mls/hr IV ASDIRECTED PAU Stop: 10/24/16 09:16 Last Admin: 10/23/16 10:09 Dose: 999 mls/hr Iopamidol (Isovue Multipack-370 (76%)) 100 ml IVPUSH ONETIME STA Stop: 10/23/16 05:37 Last Admin: 10/23/16 05:37 Dose: 100 ml Ketorolac Tromethamine (Toradol) 30 mg IVPUSH ONETIME ONE Stop: 10/23/16 05:06 Last Admin: 10/23/16 05:17 Dose: 30 mg Ondansetron HCl (Zofran) 4 mg IVPUSH ONETIME ONE Stop: 10/23/16 05:06 Last Admin: 10/23/16 05:16 Dose: 4 mg Thiamine HCl (Vitamin B-1) 100 mg IV DAILY [facility] Last Admin: 10/23/16 10:41 Dose: Not Given - Exam Quality Assessment: DVT prophylaxis General: alert, oriented, cooperative HEENT: Pupils equal, Pupils reactive, EOMI, Mucous membr. moist/pink Neck: supple Lungs: Clear to auscultation, Normal respiratory effort Cardiovascular: regular rate, regular rhythm Abdomen: bowel sounds present, soft, tenderness. No: rigidity, distension Extremities: no edema, normal pulses Neurological: no new focal deficit Psy/Mental Status: alert, normal affect, normal mood - Problem List & Annotations (1) Abdominal pain SNOMED Code(s): 94351755 Code(s): R10.9 - UNSPECIFIED ABDOMINAL PAIN Status: Acute Priority: High Current Visit: No Qualifiers: Abdominal location: epigastric Qualified Code(s): R10.13 - Epigastric pain (2) Alcoholic pancreatitis SNOMED Code(s): 700934643 Code(s): K85.2 - ALCOHOL INDUCED ACUTE PANCREATITIS * DO NOT USE * Status: Acute Current Visit: No Qualifiers: Chronicity: acute Acute pancreatitis complication: no infection or necrosis Qualified Code(s): K85.20 - Alcohol induced acute pancreatitis without necrosis or infection (3) Elevated LFTs SNOMED Code(s): 618371595 Code(s): R94.5 - ABNORMAL RESULTS OF LIVER FUNCTION STUDIES Status: Acute Current Visit: No (4) HTN, Essential hypertension SNOMED Code(s): 00786176 Code(s): I10 - ESSENTIAL (PRIMARY) HYPERTENSION Status: Chronic Priority : Medium Current Visit: No (5) Neuropathy SNOMED Code(s): 699323054 Code(s): G62.9 - POLYNEUROPATHY, UNSPECIFIED Status: Chronic Current Visit: No Annotation/Comment:: due to alcohol - Problem List Review Problem List Initiated/Reviewed/Updated: Yes - My Orders Last 24 Hours: My Active Orders 10/24/16 10:12 HYDROmorphone [Dilaudid] 2 mg IVPUSH Q2H PRN 10/24/16 10:55 Promethazine [Phenergan] 25 mg IM Q6H PRN 10/25/16 07:45 MAGNESIUM [CHEM] Routine PHOSPHORUS [CHEM] Routine 10/25/16 07:46 Calcium Carbonate [Tums] 1,000 mg PO ONETIME ONE 10/26/16 05:11 CBC WITH AUTO DIFF [HEME] AM COMPREHENSIVE METABOLIC PN,CMP [CHEM] AM - Plan Plan:: This 41 year old male admitted with alcoholic pancreatitis 1. Acute pancreatitis: Continue 200 ml/hr IVFs. Pain well controlled and feels like it is improving slightly. Analgesia and anti-emetics PRN. 2. Elevated LFTs: Continue to improve. Will monitor. Hepatic steatosis noted on U/S 3. Liver laceration vs atypical appearance of focal fatty inflammation: Spoke with Dr. Gómez, General Surgeon regarding CT finding. He reviewed images and felt potentially is a tiny laceration, but there was no blood or fluid within the abdomen. He recommended monitoring and obtaining coagulation studies. VTE dosing of Lovenox ok. Also recommended follow up in 2-3 weeks for imaging to ensure healing. I appreciated his assistance on this patient. 4. Neuropathy: Hold Lyrica until tolerating PO 5. HTN: Monitor. Hold HCTZ until tolerating PO. Lopressor IV PRN hypertension. 6. ETOH abuse: Folic acid and thiamine supplementation. Will monitor Mg and Phosphorus, both supplemented today as well as Calcium. CIWAA protocol. VTE: Lovenox. Dispo: 2-4 days pending improvement.
[2016-10-25] MEDS ORDERED: Magnesium Sulfate/Water 4 GM in Premix Bag 1 BAG IV ONE (08:40)
[2016-10-25] MEDS: Phosphorus #1 250 MG Tab PO SCH ×4 (09:04→23:31)
[2016-10-25] MEDS: Folic Acid 50 MG/10 ML MDV SUBCUT SCH (09:06)
[2016-10-25] MEDS: Enoxaparin 40 MG/0.4 ML Syringe SUBCUT SCH (09:09)
[2016-10-25] MEDS: Pantoprazole 40 MG in Sodium Chloride 0.9% 10 ML IVPUSH SCH ×2 (09:26→20:23)
[2016-10-25] MEDS: Thiamine 100 MG in Sodium Chloride 0.9% 100 ML IV SCH (10:49)
[2016-10-26] MEDS: HYDROmorphone 2 MG/ML Syringe IVPUSH PRN ×10 (00:35→23:35)
[2016-10-26] MEDS: Sodium Chloride 0.9% 1,000 ML IV SCH ×3 (01:44→23:02)
[2016-10-26 06:38] LABS: CHLORIDE,CL 105 mmol/L (98-110); SODIUM,NA 136 mmol/L (136-146)
[2016-10-26] MEDS ORDERED: Calcium Carbonate 500 MG Tab.Chew PO ONE (07:13)
[2016-10-26] MEDS ORDERED: Magnesium Sulfate/Water 4 GM in Premix Bag 1 BAG IV ONE (07:43)
--- NOTE | 2016-10-26 07:48 | PCM.PN ---
- Review of Systems Systems Review Comment:: reports epigastric pain, but improving, wants to try clears for lunch. - Patient Data Vitals - most recent: Last Vital Signs Temp 37.1 C 10/26/16 04:00 Pulse 87 10/26/16 04:00 Resp 18 10/26/16 04:00 BP 134/74 10/26/16 04:00 Pulse Ox 95 10/26/16 04:00 Weight - most recent: 85.9 kg I&O - last 24 hours: Intake & Output 10/25/16 10/26/16 10/26/16 22:59 06:59 14:59 Intake Total 1050 3694 Output Total 1680 3000 Balance -630 694 Lab Results last 24 hrs: Laboratory Results - last 24 hr 10/25/16 10/26/16 10/26/16 Range/Units 04:52 05:30 05:30 WBC 7.09 (4.0-11.0) K/uL RBC 3.98 L (4.50-5.90) M/uL Hgb 12.4 L (13.0-17.0) g/dL Hct 36.7 L (38.0-50.0) % MCV 92.2 (80.0-98.0) fL MCH 31.2 (27.0-32.0) pg MCHC 33.8 (31.0-37.0) g/dL RDW Std Deviation 43.5 (28.0-62.0) fl RDW Coeff of Conrad 13 (11.0-15.0) % Plt Count 131 L (150-400) K/uL MPV 11.20 (7.40-12.00) fL Neut % (Auto) 67.2 (48.0-80.0) % Lymph % (Auto) 18.3 (16.0-40.0) % [place] % (Auto) 10.7 (0.0-15.0) % Eos % (Auto) 3.4 (0.0-7.0) % Baso % (Auto) 0.4 (0.0-1.5) % Neut # 4.8 (1.4-5.7) K/uL Lymph # 1.3 (0.6-2.4) K/uL [place] # 0.8 (0.0-0.8) K/uL Eos # 0.2 (0.0-0.7) K/uL Baso # 0.0 (0.0-0.1) K/uL Nucleated RBC % 0.0 /100WBC Nucleated RBCs # 0 K/uL Sodium 136 (136-146) mmol/L Potassium 3.8 (3.5-5.1) mmol/L Chloride 105 (98-110) mmol/L Carbon Dioxide 18 L (21-31) mmol/L BUN 3 L (6.0-23.0) mg/dL Creatinine 0.7 (0.6-1.5) mg/dL Est Cr Clr Drug Dosing 163.10 mL/min Estimated GFR (MDRD) > 60.0 ml/min Glucose 77 (60-110) mg/dL Calcium 7.0 L (8.8-10.8) mg/dL Phosphorus 2.0 L (2.4-4.7) mg/dL Magnesium 1.2 L (1.5-2.3) mEq/L Total Bilirubin 1.2 (0.1-1.5) mg/dL AST 44 H (5-40) IU/L ALT 63 H (8-54) IU/L Alkaline Phosphatase 46 (40-150) Total Protein 6.1 (6.0-8.0) g/dL Albumin 3.6 (3.5-5.0) g/dL Globulin 2.5 (2.0-3.5) g/dL Albumin/Globulin Ratio 1.4 (1.3-2.8) 10/26/16 10/26/16 Range/Units 05:30 05:30 WBC (4.0-11.0) K/uL RBC (4.50-5.90) M/uL Hgb (13.0-17.0) g/dL Hct (38.0-50.0) % MCV (80.0-98.0) fL MCH (27.0-32.0) pg MCHC (31.0-37.0) g/dL RDW Std Deviation (28.0-62.0) fl RDW Coeff of Conrad (11.0-15.0) % Plt Count (150-400) K/uL MPV (7.40-12.00) fL Neut % (Auto) (48.0-80.0) % Lymph % (Auto) (16.0-40.0) % [place] % (Auto) (0.0-15.0) % Eos % (Auto) (0.0-7.0) % Baso % (Auto) (0.0-1.5) % Neut # (1.4-5.7) K/uL Lymph # (0.6-2.4) K/uL [place] # (0.0-0.8) K/uL Eos # (0.0-0.7) K/uL Baso # (0.0-0.1) K/uL Nucleated RBC % /100WBC Nucleated RBCs # K/uL Sodium (136-146) mmol/L Potassium (3.5-5.1) mmol/L Chloride (98-110) mmol/L Carbon Dioxide (21-31) mmol/L BUN (6.0-23.0) mg/dL Creatinine (0.6-1.5) mg/dL Est Cr Clr Drug Dosing mL/min Estimated GFR (MDRD) ml/min Glucose (60-110) mg/dL Calcium (8.8-10.8) mg/dL Phosphorus 2.3 L (2.4-4.7) mg/dL Magnesium 1.3 L (1.5-2.3) mEq/L Total Bilirubin (0.1-1.5) mg/dL AST (5-40) IU/L ALT (8-54) IU/L Alkaline Phosphatase (40-150) Total Protein (6.0-8.0) g/dL Albumin (3.5-5.0) g/dL Globulin (2.0-3.5) g/dL Albumin/Globulin Ratio (1.3-2.8) Med Orders - Current: Current Medications Enoxaparin Sodium (Lovenox) 40 mg SUBCUT DAILY [facility] Last Admin: 10/25/16 09:09 Dose: 40 mg Folic Acid (Folic Acid) 1 mg SUBCUT DAILY [facility] Last Admin: 10/25/16 09:06 Dose: 1 mg Hydromorphone HCl (Dilaudid) 2 mg IVPUSH Q2H PRN PRN Reason: Pain (severe 7-10) Last Admin: 10/26/16 04:58 Dose: 2 mg Pantoprazole Sodium 40 mg/ (Sodium Chloride) 10 mls @ 300 mls/hr IVPUSH BID [facility] Last Admin: 10/25/16 20:23 Dose: 300 mls/hr Sodium Chloride (Normal Saline) 1,000 mls @ 150 mls/hr IV ASDIRECTED [facility] Last Admin: 10/26/16 06:47 Dose: 200 mls/hr Thiamine HCl 100 mg/ Sodium (Chloride) 101 mls @ 202 mls/hr IV DAILY [facility] Last Admin: 10/25/16 10:49 Dose: 202 mls/hr Magnesium Sulfate 4 gm/ Premix 100 mls @ 50 mls/hr IV ONETIME ONE Stop: 10/26/16 09:42 Lorazepam (Ativan) 0 mg IVPUSH Q4H PRN; Protocol PRN Reason: CIWAA Metoprolol Tartrate (Lopressor) 5 mg IVPUSH Q6H PRN PRN Reason: Hypertension Last Admin: 10/24/16 03:35 Dose: 5 mg Ondansetron HCl (Zofran) 4 mg IVPUSH Q4H PRN PRN Reason: Nausea Last Admin: 10/24/16 08:48 Dose: 4 mg Promethazine HCl (Phenergan) 25 mg IM Q6H PRN PRN Reason: Nausea Last Admin: 10/24/16 13:02 Dose: 25 mg Sodium Phosphate (Neutra-Phos) 250 mg PO QID [facility] Stop: 10/26/16 23:59 Discontinued Medications Calcium Carbonate/Glycine (Tums) 1,000 mg PO ONETIME ONE Stop: 10/25/16 07:47 Last Admin: 10/25/16 08:45 Dose: 1,000 mg Calcium Carbonate/Glycine (Tums) 1,000 mg PO ONETIME ONE Stop: 10/26/16 07:14 Hydromorphone HCl (Dilaudid) 1 mg IVPUSH ONETIME ONE Stop: 10/23/16 06:46 Last Admin: 10/23/16 06:49 Dose: 1 mg Hydromorphone HCl (Dilaudid) 1 mg IVPUSH Q2H PRN PRN Reason: Pain (severe 7-10) Last Admin: 10/24/16 08:48 Dose: 1 mg Sodium Chloride (Normal Saline) 1,000 mls @ 999 mls/hr IV STAT ONE Stop: 10/23/16 06:05 Last Admin: 10/23/16 05:15 Dose: 999 mls/hr Sodium Chloride (Normal Saline) 1,000 mls @ 999 mls/hr IV ASDIRECTED [facility] Stop: 10/24/16 09:16 Last Admin: 10/23/16 10:09 Dose: 999 mls/hr Magnesium Sulfate 4 gm/ Premix 100 mls @ 50 mls/hr IV ONETIME ONE Stop: 10/25/16 10:39 Last Admin: 10/25/16 08:54 Dose: 50 mls/hr Iopamidol (Isovue Multipack-370 (76%)) 100 ml IVPUSH ONETIME STA Stop: 10/23/16 05:37 Last Admin: 10/23/16 05:37 Dose: 100 ml Ketorolac Tromethamine (Toradol) 30 mg IVPUSH ONETIME ONE Stop: 10/23/16 05:06 Last Admin: 10/23/16 05:17 Dose: 30 mg Ondansetron HCl (Zofran) 4 mg IVPUSH ONETIME ONE Stop: 10/23/16 05:06 Last Admin: 10/23/16 05:16 Dose: 4 mg Sodium Phosphate (Neutra-Phos) 250 mg PO QID [facility] Stop: 10/26/16 00:01 Last Admin: 10/25/16 23:31 Dose: 250 mg Thiamine HCl (Vitamin B-1) 100 mg IV DAILY [facility] Last Admin: 10/23/16 10:41 Dose: Not Given - Exam General: alert, oriented Lungs: Clear to auscultation, Normal respiratory effort Cardiovascular: regular rate, regular rhythm Abdomen: bowel sounds present, soft, no distension, tenderness (epigstric) Extremities: no edema Skin: warm, dry, intact - Problem List Review Problem List Initiated/Reviewed/Updated: Yes - My Orders Last 24 Hours: My Active Orders 10/26/16 07:43 Magnesium Sulfate/Water [Magnesium Sulfate 4 GM in Water 100 ML] 4 gm Premix Bag 1 bag IV ONETIME 10/26/16 12:00 Phosphorus #1 [Neutra-Phos] 250 mg PO QID 10/26/16 Lunch Clear Liquid Diet [DIET] 10/27/16 05:11 BASIC METABOLIC PANEL,BMP [CHEM] AM CBC WITH AUTO DIFF [HEME] AM MAGNESIUM [CHEM] AM PHOSPHORUS [CHEM] AM 10/28/16 05:11 BASIC METABOLIC PANEL,BMP [CHEM] AM CBC WITH AUTO DIFF [HEME] AM MAGNESIUM [CHEM] AM PHOSPHORUS [CHEM] AM 10/29/16 05:11 BASIC METABOLIC PANEL,BMP [CHEM] AM CBC WITH AUTO DIFF [HEME] AM MAGNESIUM [CHEM] AM PHOSPHORUS [CHEM] AM - Plan Plan:: This 41 year old male admitted with alcoholic pancreatitis 1. Acute pancreatitis: 150 ml/hr IVFs. Pain well controlled and feels like it is improving. We will try clear liquids for lunch Analgesia and anti-emetics PRN. 2. Elevated LFTs: Continue to improve. Will monitor. Hepatic steatosis noted on U/S 3. Liver laceration vs atypical appearance of focal fatty inflammation: Spoke with Dr. Gómez, General Surgeon regarding CT finding. He reviewed images and felt potentially is a tiny laceration, but there was no blood or fluid within the abdomen. He recommended monitoring and obtaining coagulation studies. VTE dosing of Lovenox ok. Also recommended follow up in 2-3 weeks for imaging to ensure healing. I appreciated his assistance on this patient. 4. Neuropathy: Hold Lyrica until tolerating PO 5. HTN: Monitor. Hold HCTZ until tolerating PO. Lopressor IV PRN hypertension. 6. ETOH abuse: Folic acid and thiamine supplementation. CIWAA protocol. 7. hypomagnesia, hypophosphatemia, hypocalcemia: replacing electrolytes again today. VTE: Lovenox. Dispo: 2-4 days pending improvement.
[2016-10-26] MEDS: Folic Acid 50 MG/10 ML MDV SUBCUT SCH (08:06)
[2016-10-26] MEDS: Thiamine 100 MG in Sodium Chloride 0.9% 100 ML IV SCH (08:06)
[2016-10-26] MEDS: Enoxaparin 40 MG/0.4 ML Syringe SUBCUT SCH (08:07)
[2016-10-26] MEDS: Pantoprazole 40 MG in Sodium Chloride 0.9% 10 ML IVPUSH SCH ×2 (08:15→20:21)
[2016-10-26] MEDS: Phosphorus #1 250 MG Tab PO SCH ×2 (12:47→17:04)
[2016-10-26] MEDS: Pregabalin 75 MG Cap PO SCH (20:21)
[2016-10-26] MEDS: cloNIDine 0.1 MG Tab PO SCH (20:21)
[2016-10-27] MEDS: HYDROmorphone 2 MG/ML Syringe IVPUSH PRN ×2 (03:00→06:34)
[2016-10-27] MEDS: Sodium Chloride 0.9% 1,000 ML IV SCH ×3 (06:39→23:21)
[2016-10-27 07:13] LABS: CHLORIDE,CL 106 mmol/L (98-110); SODIUM,NA 136 mmol/L (136-146)
[2016-10-27] MEDS ORDERED: Magnesium Sulfate/Water 2 GM in Premix Bag 1 BAG IV ONE (07:54)
[2016-10-27] MEDS: Folic Acid 50 MG/10 ML MDV SUBCUT SCH (08:03)
[2016-10-27] MEDS: Enoxaparin 40 MG/0.4 ML Syringe SUBCUT SCH (08:04)
[2016-10-27] MEDS: Pantoprazole 40 MG in Sodium Chloride 0.9% 10 ML IVPUSH SCH ×2 (08:04→20:17)
[2016-10-27] MEDS: cloNIDine 0.1 MG Tab PO SCH ×2 (08:07→20:17)
[2016-10-27] MEDS: Pregabalin 75 MG Cap PO SCH ×2 (08:07→20:16)
[2016-10-27] MEDS: amLODIPine 5 MG Tab PO SCH (08:08)
[2016-10-27] MEDS: Thiamine 100 MG in Sodium Chloride 0.9% 100 ML IV SCH (08:17)
--- NOTE | 2016-10-27 08:46 | PCM.PN ---
- Review of Systems Systems Review Comment:: abdominal pain improving. - Patient Data Vitals - most recent: Last Vital Signs Temp 36.1 C 10/27/16 04:00 Pulse 73 10/27/16 04:00 Resp 18 10/27/16 04:00 BP 132/79 10/27/16 08:08 Pulse Ox 94 L 10/27/16 04:00 Weight - most recent: 85.9 kg I&O - last 24 hours: Intake & Output 10/26/16 10/27/16 10/27/16 21:59 06:59 14:59 Intake Total Output Total Balance Lab Results last 24 hrs: Laboratory Results - last 24 hr 10/26/16 10/26/16 10/27/16 Range/Units 05:30 05:30 06:15 WBC (4.0-11.0) K/uL RBC (4.50-5.90) M/uL Hgb (13.0-17.0) g/dL Hct (38.0-50.0) % MCV (80.0-98.0) fL MCH (27.0-32.0) pg MCHC (31.0-37.0) g/dL RDW Std Deviation (28.0-62.0) fl RDW Coeff of Conrad (11.0-15.0) % Plt Count (150-400) K/uL MPV (7.40-12.00) fL Neut % (Auto) (48.0-80.0) % Lymph % (Auto) (16.0-40.0) % [place] % (Auto) (0.0-15.0) % Eos % (Auto) (0.0-7.0) % Baso % (Auto) (0.0-1.5) % Neut # (1.4-5.7) K/uL Lymph # (0.6-2.4) K/uL [place] # (0.0-0.8) K/uL Eos # (0.0-0.7) K/uL Baso # (0.0-0.1) K/uL Nucleated RBC % /100WBC Nucleated RBCs # K/uL Sodium (136-146) mmol/L Potassium (3.5-5.1) mmol/L Chloride (98-110) mmol/L Carbon Dioxide (21-31) mmol/L BUN (6.0-23.0) mg/dL Creatinine (0.6-1.5) mg/dL Est Cr Clr Drug Dosing mL/min Estimated GFR (MDRD) ml/min Glucose (60-110) mg/dL Calcium (8.8-10.8) mg/dL Phosphorus 2.3 L 2.0 L (2.4-4.7) mg/dL Magnesium 1.3 L (1.5-2.3) mEq/L 10/27/16 10/27/16 Range/Units 06:15 06:15 WBC 5.07 (4.0-11.0) K/uL RBC 4.03 L (4.50-5.90) M/uL Hgb 12.4 L (13.0-17.0) g/dL Hct 36.5 L (38.0-50.0) % MCV 90.6 (80.0-98.0) fL MCH 30.8 (27.0-32.0) pg MCHC 34.0 (31.0-37.0) g/dL RDW Std Deviation 42.5 (28.0-62.0) fl RDW Coeff of Conrad 13 (11.0-15.0) % Plt Count 132 L (150-400) K/uL MPV 11.00 (7.40-12.00) fL Neut % (Auto) 58.8 (48.0-80.0) % Lymph % (Auto) 25.2 (16.0-40.0) % [place] % (Auto) 9.9 (0.0-15.0) % Eos % (Auto) 5.7 (0.0-7.0) % Baso % (Auto) 0.4 (0.0-1.5) % Neut # 3.0 (1.4-5.7) K/uL Lymph # 1.3 (0.6-2.4) K/uL [place] # 0.5 (0.0-0.8) K/uL Eos # 0.3 (0.0-0.7) K/uL Baso # 0.0 (0.0-0.1) K/uL Nucleated RBC % 0.0 /100WBC Nucleated RBCs # 0 K/uL Sodium 136 (136-146) mmol/L Potassium 3.7 (3.5-5.1) mmol/L Chloride 106 (98-110) mmol/L Carbon Dioxide 21 (21-31) mmol/L BUN 2 L (6.0-23.0) mg/dL Creatinine 0.6 (0.6-1.5) mg/dL Est Cr Clr Drug Dosing 190.28 mL/min Estimated GFR (MDRD) > 60.0 ml/min Glucose 103 (60-110) mg/dL Calcium 7.1 L (8.8-10.8) mg/dL Phosphorus (2.4-4.7) mg/dL Magnesium 1.6 (1.5-2.3) mEq/L Med Orders - Current: Current Medications Amlodipine Besylate (Norvasc) 10 mg PO DAILY [facility] Last Admin: 10/27/16 08:08 Dose: 10 mg Clonidine HCl (Catapres) 0.1 mg PO BID [facility] Last Admin: 10/27/16 08:07 Dose: 0.1 mg Enoxaparin Sodium (Lovenox) 40 mg SUBCUT DAILY [facility] Last Admin: 10/27/16 08:04 Dose: 40 mg Folic Acid (Folic Acid) 1 mg SUBCUT DAILY [facility] Last Admin: 10/27/16 08:03 Dose: 1 mg Hydromorphone HCl (Dilaudid) 2 mg IVPUSH Q2H PRN PRN Reason: Pain (severe 7-10) Last Admin: 10/27/16 06:34 Dose: 2 mg Pantoprazole Sodium 40 mg/ (Sodium Chloride) 10 mls @ 300 mls/hr IVPUSH BID [facility] Last Admin: 10/27/16 08:04 Dose: 300 mls/hr Thiamine HCl 100 mg/ Sodium (Chloride) 101 mls @ 202 mls/hr IV DAILY [facility] Last Admin: 10/27/16 08:17 Dose: 202 mls/hr Sodium Chloride (Normal Saline) 1,000 mls @ 150 mls/hr IV ASDIRECTED [facility] Last Admin: 10/27/16 06:39 Dose: 150 mls/hr Magnesium Sulfate 2 gm/ Premix 50 mls @ 50 mls/hr IV ONETIME ONE Stop: 10/27/16 08:53 Last Admin: 10/27/16 08:08 Dose: 50 mls/hr Lorazepam (Ativan) 0 mg IVPUSH Q4H PRN; Protocol PRN Reason: CIWAA Metoprolol Tartrate (Lopressor) 5 mg IVPUSH Q6H PRN PRN Reason: Hypertension Last Admin: 10/24/16 03:35 Dose: 5 mg Ondansetron HCl (Zofran) 4 mg IVPUSH Q4H PRN PRN Reason: Nausea Last Admin: 10/24/16 08:48 Dose: 4 mg Pregabalin (Lyrica) 150 mg PO BID [facility] Last Admin: 10/27/16 08:07 Dose: 150 mg Promethazine HCl (Phenergan) 25 mg IM Q6H PRN PRN Reason: Nausea Last Admin: 10/24/16 13:02 Dose: 25 mg Sodium Phosphate (Neutra-Phos) 250 mg PO QID [facility] Stop: 10/27/16 23:59 Discontinued Medications Calcium Carbonate/Glycine (Tums) 1,000 mg PO ONETIME ONE Stop: 10/25/16 07:47 Last Admin: 10/25/16 08:45 Dose: 1,000 mg Calcium Carbonate/Glycine (Tums) 1,000 mg PO ONETIME ONE Stop: 10/26/16 07:14 Last Admin: 10/26/16 08:07 Dose: 1,000 mg Hydromorphone HCl (Dilaudid) 1 mg IVPUSH ONETIME ONE Stop: 10/23/16 06:46 Last Admin: 10/23/16 06:49 Dose: 1 mg Hydromorphone HCl (Dilaudid) 1 mg IVPUSH Q2H PRN PRN Reason: Pain (severe 7-10) Last Admin: 10/24/16 08:48 Dose: 1 mg Sodium Chloride (Normal Saline) 1,000 mls @ 999 mls/hr IV STAT ONE Stop: 10/23/16 06:05 Last Admin: 10/23/16 05:15 Dose: 999 mls/hr Sodium Chloride (Normal Saline) 1,000 mls @ 999 mls/hr IV ASDIRECTED [facility] Stop: 10/24/16 09:16 Last Admin: 10/23/16 10:09 Dose: 999 mls/hr Sodium Chloride (Normal Saline) 1,000 mls @ 150 mls/hr IV ASDIRECTED [facility] Last Infusion: 10/27/16 06:38 Dose: Infused Magnesium Sulfate 4 gm/ Premix 100 mls @ 50 mls/hr IV ONETIME ONE Stop: 10/25/16 10:39 Last Admin: 10/25/16 08:54 Dose: 50 mls/hr Magnesium Sulfate 4 gm/ Premix 100 mls @ 50 mls/hr IV ONETIME ONE Stop: 10/26/16 09:42 Last Admin: 10/26/16 08:56 Dose: 50 mls/hr Iopamidol (Isovue Multipack-370 (76%)) 100 ml IVPUSH ONETIME [facility] Stop: 10/23/16 05:37 Last Admin: 10/23/16 05:37 Dose: 100 ml Ketorolac Tromethamine (Toradol) 30 mg IVPUSH ONETIME ONE Stop: 10/23/16 05:06 Last Admin: 10/23/16 05:17 Dose: 30 mg Ondansetron HCl (Zofran) 4 mg IVPUSH ONETIME ONE Stop: 10/23/16 05:06 Last Admin: 10/23/16 05:16 Dose: 4 mg Sodium Phosphate (Neutra-Phos) 250 mg PO QID [facility] Stop: 10/26/16 00:01 Last Admin: 10/25/16 23:31 Dose: 250 mg Sodium Phosphate (Neutra-Phos) 250 mg PO QID [facility] Stop: 10/26/16 23:59 Last Admin: 10/26/16 17:04 Dose: 250 mg Thiamine HCl (Vitamin B-1) 100 mg IV DAILY [facility] Last Admin: 10/23/16 10:41 Dose: Not Given - Exam General: alert, oriented Lungs: Clear to auscultation, Normal respiratory effort Cardiovascular: regular rate, regular rhythm Abdomen: bowel sounds present, soft, no tenderness, no distension Extremities: no edema - Problem List Review Problem List Initiated/Reviewed/Updated: Yes - My Orders Last 24 Hours: My Active Orders 10/26/16 21:00 Pregabalin [Lyrica] 150 mg PO BID cloNIDine [Catapres] 0.1 mg PO BID 10/26/16 Lunch Clear Liquid Diet [DIET] 10/27/16 01:30 Sodium Chloride 0.9% [Normal Saline] 1,000 ml IV ASDIRECTED 10/27/16 07:54 Magnesium Sulfate/Water [Magnesium Sulfate 2 GM in Water 50 ML] 2 gm Premix Bag 1 bag IV ONETIME 10/27/16 09:00 amLODIPine [Norvasc] 10 mg PO DAILY 10/27/16 12:00 Phosphorus #1 [Neutra-Phos] 250 mg PO QID 10/27/16 Lunch Full Liquid Diet [DIET] 10/28/16 05:11 BASIC METABOLIC PANEL,BMP [CHEM] AM CBC WITH AUTO DIFF [HEME] AM MAGNESIUM [CHEM] AM PHOSPHORUS [CHEM] AM 10/29/16 05:11 BASIC METABOLIC PANEL,BMP [CHEM] AM CBC WITH AUTO DIFF [HEME] AM MAGNESIUM [CHEM] AM PHOSPHORUS [CHEM] AM - Plan Plan:: This 41 year old male admitted with alcoholic pancreatitis 1. Acute pancreatitis: will advance to full liquid, potential discharge this afternoon 2. Elevated LFTs: Continue to improve. Will monitor. Hepatic steatosis noted on U/S 3. Liver laceration vs atypical appearance of focal fatty inflammation: Dr. Gómez recommended follow up in 2-3 weeks for imaging to ensure healing. 3. ETOH abuse: Folic acid and thiamine supplementation. CIWAA protocol. 5. hypomagnesia, hypophosphatemia, hypocalcemia: replacing electrolytes again today. VTE: Lovenox.
[2016-10-27] MEDS: oxyCODONE 5 MG Tab PO PRN ×4 (09:55→23:19)
[2016-10-27] MEDS: Phosphorus #1 250 MG Tab PO SCH ×2 (11:47→17:37)
[2016-10-28] MEDS: oxyCODONE 5 MG Tab PO PRN ×2 (06:09→10:18)
[2016-10-28] MEDS: Sodium Chloride 0.9% 1,000 ML IV SCH (06:11)
[2016-10-28 07:14] LABS: CHLORIDE,CL 107 mmol/L (98-110); SODIUM,NA 140 mmol/L (136-146)
[2016-10-28] MEDS ORDERED: Calcium Carbonate 500 MG Tab.Chew PO ONE (08:12)
[2016-10-28] MEDS: Pregabalin 75 MG Cap PO SCH (08:26)
[2016-10-28] MEDS: cloNIDine 0.1 MG Tab PO SCH (08:26)
[2016-10-28] MEDS: Phosphorus #1 250 MG Tab PO SCH ×2 (08:26→11:32)
[2016-10-28] MEDS: amLODIPine 5 MG Tab PO SCH (08:26)
[2016-10-28] MEDS: Enoxaparin 40 MG/0.4 ML Syringe SUBCUT SCH (08:26)
[2016-10-28] MEDS: Folic Acid 50 MG/10 ML MDV SUBCUT SCH (08:27)
[2016-10-28] MEDS: Pantoprazole 40 MG in Sodium Chloride 0.9% 10 ML IVPUSH SCH (08:28)
[2016-10-28] MEDS: Thiamine 100 MG in Sodium Chloride 0.9% 100 ML IV SCH (08:43)
--- NOTE | 2016-10-28 11:43 | PCM.DCSUM1 ---
Discharge Summary - Hospital Course Brief History: This 41 year old male well known to our facility for alcholic induced pancreatitis presented to the ED 10/23/2016 morning with complaints of worsening epigastric pain. He reports this pain started the day prior and progressively worsened. He has continued to drink, reporting he drinks 1 pint of vodka/day but not on a daily basis. He could drink more or less than that as well. He has been following up with Dr. Verma in the clinic as well as with Samia Shultz NP. He was placed on LIbruin 5 mg TID PRN, which he rarely takes. HCTZ for BP but he does not like because "I get cotton mouth from". Lyrica was also started, which he feels has made his bilateral lower leg neuropathy a lot better, and is very please with this. He contiunes to smoke 1- 2 cigarettes daily, marijuana intermittently and drinking as stated above. He was discussing inpatient treatment with Dr. Verma, in [place] but has not made a commitment yet. He is due to follow up with Dr. Verma on october 30 and he is hoping to then make arrnagements to go to [place] for treatment. He reports he has not been in any MVC and physical altercations. He does report he falls frequently due to the neuropathy and drinking heavily. No fall that he can remember recently where he injury is RUQ. He does not and has not been taking any Tylenol. In the ED WBC WNL, BUN 11 Cr 1.0. Ua negative. Amylase 181 , Lipase 250. AST 13, ALT 170. Bilirubin 0.6 Alk phos 51. Abd/Pelvis CT revealed mild acute uncomplicated pancreatitis with mild edema present about the pancreatic hed, no lesions and no fluid collection. There was noted a "relatively new small linear area of low attenuation in the anterior medial right liver lobe, has the characteristic appearance of a laceration vs atypical appearance of a focal fatty inflammation, no perihepatic fluid collections". the remainder of the exam was unremarkable. He was admitted from ED for acute alcoholic pancreatitis. - Discharge Data Discharge Date: 10/28/16 Discharge Disposition: Home, Self-Care 01 Condition: Good - Discharge Diagnosis/Problem(s) (1) Abdominal pain SNOMED Code(s): 52604962 ICD Code: R10.9 - UNSPECIFIED ABDOMINAL PAIN Status: Acute Priority: High Current Visit: No Qualifiers: Abdominal location: epigastric Qualified Code(s): R10.13 - Epigastric pain (2) Alcoholic pancreatitis SNOMED Code(s): 204920719 ICD Code: K85.2 - ALCOHOL INDUCED ACUTE PANCREATITIS * DO NOT USE * Status : Acute Current Visit: No Qualifiers: Chronicity: acute Acute pancreatitis complication: no infection or necrosis Qualified Code(s): K85.20 - Alcohol induced acute pancreatitis without necrosis or infection (3) Elevated LFTs SNOMED Code(s): 193566555 ICD Code: R94.5 - ABNORMAL RESULTS OF LIVER FUNCTION STUDIES Status: Acute Current Visit: No (4) HTN, Essential hypertension SNOMED Code(s): 99761652 ICD Code: I10 - ESSENTIAL (PRIMARY) HYPERTENSION Status: Chronic Priority : Medium Current Visit: No (5) Neuropathy SNOMED Code(s): 318468281 ICD Code: G62.9 - POLYNEUROPATHY, UNSPECIFIED Status: Chronic Current Visit: No Problem Details: due to alcohol (6) Liver lacerat unspcf cls SNOMED Code(s): 063438531 ICD Code: S36.113A - LACERATION OF LIVER, UNSPECIFIED DEGREE, INITIAL ENCOUNTER Status: Acute Current Visit: Yes Qualifiers: Encounter type: initial encounter Qualified Code(s): S36.113A - Laceration of liver, unspecified degree, initial encounter - Patient Summary/Data Recommended Follow-up Testing/Procedures: Follow up CT for liver laceration in 2-3 weeks. - Patient Instructions Diet: Full Liquid Diet (Advance slowly to soft/bland low fat, then regular low fat) Activity: As Tolerated Driving: Do Not Drive (No driving while taking narcotics) Showering/Bathing: May Shower Notify Provider of: Fever, Increased Pain, Swelling and Redness, Drainage, Nausea and/or Vomiting Other/Special Instructions: Recommended daily dosing of supplements of Folic acid, thiamine and B 6. Folic acid 400 mcg daily. Thiamine 100 mg daily. Vitamin B6 2 mg daily. Encourage sobriety. Attend AA meetings, Celebrate Recovery. Also Encouraged to attend inpatient rehab in [place] as discussed with Dr. Verma. - Discharge Plan Prescriptions/Med Rec: Folic Acid 1 mg PO DAILY #30 tablet Thiamine [Vitamin B-1] 100 mg PO BEDTIME #30 tablet oxyCODONE 5 mg PO Q6H #7 tablet Home Medications: Home Meds amLODIPine [Norvasc] 10 mg PO DAILY #30 tablet 03/07/15 [Rx] Hydrochlorothiazide 25 mg PO DAILY 10/23/16 [History] Pregabalin [Lyrica] 150 mg PO BID 10/23/16 [History] Venlafaxine HCl 75 mg PO BID 10/23/16 [History] cloNIDine HCl [Catapres] 0.1 mg PO BID 10/23/16 [History] Folic Acid 1 mg PO DAILY #30 tablet 10/28/16 [Rx] Thiamine [Vitamin B-1] 100 mg PO BEDTIME #30 tablet 10/28/16 [Rx] oxyCODONE 5 mg PO Q6H #7 tablet 10/28/16 [Rx] Patient Handouts: Acute Pancreatitis, [id number], Oxycodone tablets or capsules, Thiamine, Vitamin B1 tablets, Folic Acid, Vitamin B9 tablets Referrals: [facility] [Outside] Prasanth Verma MD [Primary Care Provider] - 10/30/16 3:00 pm - Discharge Summary/Plan Comment DC Time >30 min.: No Discharge Summary/Plan Comment: Discharge Diagnoses: Acute alcoholic pancreatitis Liver laceration Etoh abuse HTN Peripheral neuropathy Depression Efrain was and admitted for acute alcoholic pancreatitis. He was treated with IVF resuscitation, bowel rest and analgesia. He was supplemented daily with Folic acid, Thiamine, Magnesium, Calcium and phosphorous. CIWAA protocol was in place , but did not needed administration of Ativan for withdrawal symptoms. He was kept NPO for 4 days, then transitioned to CL when nausea was gone and pain was improving. He has tolerated FL diet and is using Oxycodone only for pain. He is ready for discharge home today. Pain has continued to improve and he is tolerating diet. We will send him home with Oxycodone 5 mg Q6hrs PO PRN Pain #7 tabs. He will follow up with PCP, Dr. Verma on Friday. He was also scheduled to have follow up CT in2-3 weeks for potential liver laceration, seen on admission CT. He has remained stable during stay and LFTs continue to decrease. He was encouraged sobriety again, he verbally agrees he "has to change , this is getting ridiculous". Will provide AA meeting list and celebrate recovery. Encouraged to take Folic acid, thiamine and B6 at home. Continue all home medications as previously prescribed. - General Info Date of Service: 10/28/16 Admission Dx/Problem (Free Text: Admission Diagnosis/Problem Admission Diagnosis/Problem Pancreatitis Subjective Update: Doing well this morning and ready for discharge. Tolerating diet. No N/V, no chest pain or SOB. mild abdominal pain. Passing flatus. Functional Status: Reports: pain controlled, tolerating diet, ambulating, urinating - Review of Systems General: Reports: no symptoms. Denies: fever HEENT: Reports: no symptoms. Denies: sinus congestion, sore throat Pulmonary: Reports: no symptoms. Denies: shortness of breath Cardiovascular: Reports: no symptoms. Denies: chest pain, palpitations Gastrointestinal: Reports: Abdominal pain (mild, continues to improve). Denies : Constipation, Nausea, Vomiting Genitourinary: Reports: no symptoms Musculoskeletal: Reports: no symptoms Skin: Reports: no symptoms Neurological: Reports: no symptoms Psychiatric: Reports: no symptoms - Patient Data Vitals - Most Recent: Last Vital Signs Temp 98.0 F 10/28/16 08:00 Pulse 61 10/28/16 08:00 Resp 18 10/28/16 08:00 BP 138/92 H 10/28/16 08:26 Pulse Ox 90 L 10/28/16 08:00 Weight - Most Recent: 85.9 kg I&O - Last 24 hours: Intake & Output 10/27/16 10/28/16 10/28/16 22:59 06:59 14:59 Intake Total 3396 2646 Output Total 1623 1985 Balance 1776 -579 Lab Results - Last 24 hrs: Laboratory Results - last 24 hr 10/28/16 10/28/16 10/28/16 Range/Units 06:42 06:42 06:42 WBC 3.80 L (4.0-11.0) K/uL RBC 4.36 L (4.50-5.90) M/uL Hgb 13.4 (13.0-17.0) g/dL Hct 39.6 (38.0-50.0) % MCV 90.8 (80.0-98.0) fL MCH 30.7 (27.0-32.0) pg MCHC 33.8 (31.0-37.0) g/dL RDW Std Deviation 42.6 (28.0-62.0) fl RDW Coeff of Conrad 13 (11.0-15.0) % Plt Count 157 (150-400) K/uL MPV 10.80 (7.40-12.00) fL Neut % (Auto) 43.2 L (48.0-80.0) % Lymph % (Auto) 37.6 (16.0-40.0) % Calloway % (Auto) 11.1 (0.0-15.0) % Eos % (Auto) 7.6 H (0.0-7.0) % Baso % (Auto) 0.5 (0.0-1.5) % Neut # 1.6 (1.4-5.7) K/uL Lymph # 1.4 (0.6-2.4) K/uL Calloway # 0.4 (0.0-0.8) K/uL Eos # 0.3 (0.0-0.7) K/uL Baso # 0.0 (0.0-0.1) K/uL Nucleated RBC % 0.0 /100WBC Nucleated RBCs # 0 K/uL Sodium 140 (136-146) mmol/L Potassium 3.9 (3.5-5.1) mmol/L Chloride 107 (98-110) mmol/L Carbon Dioxide 24 (21-31) mmol/L BUN 3 L (6.0-23.0) mg/dL Creatinine 0.7 (0.6-1.5) mg/dL Est Cr Clr Drug Dosing 163.10 mL/min Estimated GFR (MDRD) > 60.0 ml/min Glucose 116 H (60-110) mg/dL Calcium 8.0 L (8.8-10.8) mg/dL Phosphorus 2.3 L (2.4-4.7) mg/dL Magnesium 1.7 (1.5-2.3) mEq/L Med Orders - Current: Current Medications Amlodipine Besylate (Norvasc) 10 mg PO DAILY [facility] Last Admin: 10/28/16 08:26 Dose: 10 mg Clonidine HCl (Catapres) 0.1 mg PO BID [facility] Last Admin: 10/28/16 08:26 Dose: 0.1 mg Enoxaparin Sodium (Lovenox) 40 mg SUBCUT DAILY [facility] Last Admin: 10/28/16 08:26 Dose: 40 mg Folic Acid (Folic Acid) 1 mg SUBCUT DAILY [facility] Last Admin: 10/28/16 08:27 Dose: 1 mg Pantoprazole Sodium 40 mg/ (Sodium Chloride) 10 mls @ 300 mls/hr IVPUSH BID [facility] Last Admin: 10/28/16 08:28 Dose: 300 mls/hr Thiamine HCl 100 mg/ Sodium (Chloride) 101 mls @ 202 mls/hr IV DAILY [facility] Last Admin: 10/28/16 08:43 Dose: 202 mls/hr Sodium Chloride (Normal Saline) 1,000 mls @ 150 mls/hr IV ASDIRECTED [facility] Last Admin: 10/28/16 06:11 Dose: 150 mls/hr Lorazepam (Ativan) 0 mg IVPUSH Q4H PRN; Protocol PRN Reason: CIWAA Metoprolol Tartrate (Lopressor) 5 mg IVPUSH Q6H PRN PRN Reason: Hypertension Last Admin: 10/24/16 03:35 Dose: 5 mg Ondansetron HCl (Zofran) 4 mg IVPUSH Q4H PRN PRN Reason: Nausea Last Admin: 10/24/16 08:48 Dose: 4 mg Oxycodone HCl (Oxycodone) 5 mg PO Q4H PRN PRN Reason: Pain Last Admin: 10/28/16 10:18 Dose: 5 mg Pregabalin (Lyrica) 150 mg PO BID [facility] Last Admin: 10/28/16 08:26 Dose: 150 mg Promethazine HCl (Phenergan) 25 mg IM Q6H PRN PRN Reason: Nausea Last Admin: 10/24/16 13:02 Dose: 25 mg Sodium Phosphate (Neutra-Phos) 250 mg PO QID [facility] Stop: 10/29/16 00:01 Last Admin: 10/28/16 11:32 Dose: 250 mg Discontinued Medications Calcium Carbonate/Glycine (Tums) 1,000 mg PO ONETIME ONE Stop: 10/25/16 07:47 Last Admin: 10/25/16 08:45 Dose: 1,000 mg Calcium Carbonate/Glycine (Tums) 1,000 mg PO ONETIME ONE Stop: 10/26/16 07:14 Last Admin: 10/26/16 08:07 Dose: 1,000 mg Calcium Carbonate/Glycine (Tums) 1,000 mg PO ONETIME ONE Stop: 10/28/16 08:13 Last Admin: 10/28/16 08:25 Dose: 1,000 mg Hydromorphone HCl (Dilaudid) 1 mg IVPUSH ONETIME ONE Stop: 10/23/16 06:46 Last Admin: 10/23/16 06:49 Dose: 1 mg Hydromorphone HCl (Dilaudid) 1 mg IVPUSH Q2H PRN PRN Reason: Pain (severe 7-10) Last Admin: 10/24/16 08:48 Dose: 1 mg Hydromorphone HCl (Dilaudid) 2 mg IVPUSH Q2H PRN PRN Reason: Pain (severe 7-10) Last Admin: 10/27/16 06:34 Dose: 2 mg Sodium Chloride (Normal Saline) 1,000 mls @ 999 mls/hr IV STAT ONE Stop: 10/23/16 06:05 Last Admin: 10/23/16 05:15 Dose: 999 mls/hr Sodium Chloride (Normal Saline) 1,000 mls @ 999 mls/hr IV ASDIRECTED [facility] Stop: 10/24/16 09:16 Last Admin: 10/23/16 10:09 Dose: 999 mls/hr Sodium Chloride (Normal Saline) 1,000 mls @ 150 mls/hr IV ASDIRECTED [facility] Last Infusion: 10/27/16 06:38 Dose: Infused Magnesium Sulfate 4 gm/ Premix 100 mls @ 50 mls/hr IV ONETIME ONE Stop: 10/25/16 10:39 Last Admin: 10/25/16 08:54 Dose: 50 mls/hr Magnesium Sulfate 4 gm/ Premix 100 mls @ 50 mls/hr IV ONETIME ONE Stop: 10/26/16 09:42 Last Admin: 10/26/16 08:56 Dose: 50 mls/hr Magnesium Sulfate 2 gm/ Premix 50 mls @ 50 mls/hr IV ONETIME ONE Stop: 10/27/16 08:53 Last Admin: 10/27/16 08:08 Dose: 50 mls/hr Iopamidol (Isovue Multipack-370 (76%)) 100 ml IVPUSH ONETIME STA Stop: 10/23/16 05:37 Last Admin: 10/23/16 05:37 Dose: 100 ml Ketorolac Tromethamine (Toradol) 30 mg IVPUSH ONETIME ONE Stop: 10/23/16 05:06 Last Admin: 10/23/16 05:17 Dose: 30 mg Ondansetron HCl (Zofran) 4 mg IVPUSH ONETIME ONE Stop: 10/23/16 05:06 Last Admin: 10/23/16 05:16 Dose: 4 mg Sodium Phosphate (Neutra-Phos) 250 mg PO QID [facility] Stop: 10/26/16 00:01 Last Admin: 10/25/16 23:31 Dose: 250 mg Sodium Phosphate (Neutra-Phos) 250 mg PO QID [facility] Stop: 10/26/16 23:59 Last Admin: 10/26/16 17:04 Dose: 250 mg Sodium Phosphate (Neutra-Phos) 250 mg PO QID [facility] Stop: 10/27/16 23:59 Last Admin: 10/27/16 17:37 Dose: 250 mg Thiamine HCl (Vitamin B-1) 100 mg IV DAILY [facility] Last Admin: 10/23/16 10:41 Dose: Not Given - Exam General: Reports: alert, oriented, cooperative HEENT: Reports: Pupils equal, Pupils reactive, EOMI, Mucous membr. moist/pink Neck: Reports: supple Lungs: Reports: Clear to auscultation, Normal respiratory effort Cardiovascular: Reports: regular rate, regular rhythm Abdomen: Reports: bowel sounds present, soft, no distension, tenderness (mild to epigastric, improved significantly) Extremities: Reports: no edema, normal pulses Skin: Reports: warm, dry, intact Wound/Incisions: Reports: healing well Psy/Mental Status: Reports: alert, normal affect, normal mood *Q Meaningful Use (DIS) - VTE *Q VTE Criteria *Q: - Stroke *Q Stroke Criteria *Q: - AMI *Q AMI Criteria *Q:
[2016-10-28 12:12] VITALS: BP 139/81
== END 2016-10-28 13:40 | disposition home or self-care (01) | DRG 439 ==
LOC: MW.ED 04:27 → MW.MS 06:49 → MW.ED 07:46
PROVIDERS: ADMIT Internal Medicine; ATTEND Internal Medicine
DX: K85.20 Alcohol induced acute pancreatitis without necrosis or infection (principal); S36.113A Laceration of liver, unspecified degree, initial encounter; R94.5 Abnormal results of liver function studies; G62.1 Alcoholic polyneuropathy; X58.XXXA Exposure to other specified factors, initial encounter; R29.6 Repeated falls; I10 Essential (primary) hypertension; F41.8 Other specified anxiety disorders; F17.200 Nicotine dependence, unspecified, uncomplicated; R10.13 Epigastric pain; F10.10 Alcohol abuse, uncomplicated; E83.42 Hypomagnesemia; E83.39 Other disorders of phosphorus metabolism; E83.51 Hypocalcemia; R11.0 Nausea; Z88.0 Allergy status to penicillin; Z79.899 Other long term (current) drug therapy
CPT/HCPCS: 36415; 74177; 74177-26; 76705; 76705-26; 80048; 80053; 81001; 82150; 83690; 83735; 84100; 85025; 85610; 85730; 96361; 96374; 96375; 99285; 99285-25; A9270-GY; C9113; J1170; J1650; J1885; J2405; J2550; J3411; J3475; J7030; J7040; Q9967

== ENCOUNTER 2016-11-21 23:40 | Observation (INO) | payer MEDICAID ==
[2016-11-22] MEDS ORDERED: Aspirin 81 MG Tab.Chew PO ONE (00:09)
[2016-11-22] MEDS ORDERED: Sodium Chloride 0.9% 10 ML Syringe FLUSH PRN (00:09)
[2016-11-22] MEDS ORDERED: Sodium Chloride 0.9% 2.5 ML Syringe FLUSH PRN (00:09)
[2016-11-22] MEDS: Sodium Chloride 0.9% 1,000 ML IV SCH ×2 (00:21→08:39)
--- NOTE | 2016-11-22 00:24 | EDM.PDOC ---
ED HISTORY OF PRESENT ILLNESS - General Chief Complaint: Chest Pain Stated Complaint: PT HAS CHEST PAINS Time Seen by Provider: 11/22/16 00:09 Source of Information: Reports: Patient History Limitations: Reports: No limitations - History of Present Illness INITIAL COMMENTS - FREE TEXT/NARRATIVE: HISTORY AND PHYSICAL: History of present illness: [5-year-old male with a history of chronic pancreatitis and alcoholism with no prior cardiac workup now presents emergent [facility] complaining of chest pain with mild shortness of breath recently. Patient states she's experienced mid chest pain associated with dyspnea. No nausea vomiting or diaphoresis. Patient has no productive cough or fever. Denies pleuritic pain. He is a smoker but he says he "just quit. "He also has a history of hypertension for which he is treated and feels that he is reasonably compliant with his hypertension has been difficult to control. Is is a history of type 2 diabetes and a family history of heart disease with his father having heart disease. He has never had a stress test or catheterization or been told that he had coronary artery disease by his description. Patient is currently pain-free . Review of systems: As per history of present illness and below otherwise all systems reviewed and negative. Past medical history: As per history of present illness and as reviewed below otherwise noncontributory. Surgical history: As per history of present illness and as reviewed below otherwise noncontributory. Social history: No reported history of drug or alcohol abuse. Family history: As per history of present illness and as reviewed below otherwise noncontributory. Physical exam: HEENT: Atraumatic, normocephalic, pupils reactive, negative for conjunctival pallor or scleral icterus, mucous membranes moist, throat clear, neck supple, nontender, trachea midline. Lungs: Clear to auscultation, breath sounds equal bilaterally, chest nontender. Heart: S1S2, regular, negative for clicks, rubs, or JVD. Abdomen: Soft, nondistended, nontender. Negative for masses or hepatosplenomegaly. Negative for costovertebral tenderness. Pelvis: Stable nontender. Genitourinary: Deferred. Rectal: Deferred. Extremities: Atraumatic, negative for cords or calf pain. Neurovascular unremarkable. Neuro: Awake, alert, oriented. Motor and sensory unremarkable throughout. Exam nonfocal. Diagnostics: [Chest x-ray interpreted by me no acute disease normal study. EKG normal sinus tachycardia at 100 bilateral atrial enlargement inferior lateral ST segment depression new since prior study] Therapeutics: [Aspirin and nitroglycerin paste administered] Impression: [] Plan: [Signs and symptoms consistent with chest pain possible cardiac etiology in a patient with for cardiac risk factors as well as maleness and a heart score of 5. Patient is pain-free and well-appearing. EKG has definite changes compared with prior study which are possibly consistent with ischemia. Hemodynamically stable. Troponin negative labs otherwise unremarkable. Case discussed with Dr. Sarbjit Amezcua hospitalist second steward is aware of history and findings and agrees with observation telemetry admission for further cardiac workup and treatment as needed ] Definitive disposition and diagnosis as appropriate pending reevaluation and review of above. - Related Data Allergies/ADRs: Allergies Allergy/AdvReac Type Severity Reaction Status Date / Time Penicillins Allergy Cannot Verified 11/21/16 23:55 Remember Home Meds: Home Meds amLODIPine [Norvasc] 10 mg PO DAILY #30 tablet 03/07/15 [Rx] Venlafaxine HCl 75 mg PO BID 10/23/16 [History] cloNIDine HCl [Catapres] 0.1 mg PO BID 10/23/16 [History] Folic Acid 1 mg PO DAILY #30 tablet 10/28/16 [Rx] Pregabalin [Lyrica] 150 mg PO BID 11/21/16 [History] Past Medical History HEENT History: Reports: None Cardiovascular History: Reports: Hypertension Respiratory History: Reports: Pneumonia, recurrent Other Respiratory History: Pneumonia Gastrointestinal History: Reports: Pancreatitis Other Gastrointestinal History: Recurrent alcoholic pancreatitis, hx of Necrotizing Pancreatitis Genitourinary History: Reports: None Other Genitourinary History: vasectomy 13 years ago Musculoskeletal History: Reports: Fracture Other Musculoskeletal History: arm Neurological History: Reports: Neuropathy, peripheral Psychiatric History: Reports: Addiction, Anxiety, Depression Endocrine/Metabolic History: Reports: None Hematologic History: Reports: None Immunologic History: Reports: None Oncologic (Cancer) History: Reports: None Dermatologic History: Reports: None - Infectious Disease History Infectious Disease History: Reports: None - Past Surgical History Head Surgeries/Procedures: Reports: None HEENT Surgical History: Reports: Oral surgery, Other (see below) Other HEENT Surgeries/Procedures: wisdom tooth taken out. Cardiovascular Surgical History: Reports: None Respiratory Surgical History: Reports: None GI Surgical History: Reports: None Male Surgical History: Reports: Vasectomy Endocrine Surgical History: Reports: None Neurological Surgical History: Reports: None Musculoskeletal Surgical History: Reports: Arthroscopic knee, Other (see below) Other Musculoskeletal Surgeries/Procedures:: Knee surgery two months ago Oncologic Surgical History: Reports: None Social & Family History - Family History Family Medical History: Noncontributory HEENT: Reports: None Cardiac: Reports: Heart failure Respiratory: Reports: Asthma GI: Reports: None : Reports: None OBGYN: Reports: None Musculoskeletal: Reports: None Neurological: Reports: None Psychiatric: Reports: Anxiety Endocrine/Metabolic: Reports: Diabetes, type II Hematologic: Reports: None Immunologic: Reports: None Dermatologic: Reports: None Oncologic: Reports: Colon - Tobacco Use Smoking Status *Q: Current Every Day Smoker Years of Tobacco use: 25 Packs/Tins Daily: 0.2 Used Tobacco, but Quit: No Second Hand Smoke Exposure: Yes - Caffeine Use Caffeine Use: Reports: Tea - Alcohol Use Days Per Week of Alcohol Use: 5 Number of Drinks Per Day: 5 Total Drinks Per Week: 25 - Recreational Drug Use Recreational Drug Use: No Drug Use in Last 12 Months: Yes Recreational Drug Type: Reports: Marijuana/Hashish Other Recreational Drug Type: smoke pot Recreational Drug Use Frequency: Weekly Recreational Drug Last Use: 06/18/16 - Living Situation & Occupation Living situation: Reports: with significant other (Girlfriend Maggy) Occupation: unemployed ED ROS GENERAL - Review of Systems Review Of Systems: See Below (To be a) ED EXAM, GENERAL - Physical Exam Exam: See Below (History of present illness) Course - Vital Signs Last Recorded V/S: Last Vital Signs Temp 36.5 C 11/21/16 23:50 Pulse 97 11/22/16 01:02 Resp 17 11/22/16 01:02 BP 134/91 H 11/22/16 01:02 Pulse Ox 95 11/22/16 01:02 - Orders/Labs/Meds Orders: Active Orders 24 hr Category Date Time Status Admission Status [Patient Status] [ADT] Stat ADT 11/22/16 01:04 Ordered EKG 12 Lead [EKG Documentation Completion] [RC] STAT Care 11/22/16 00:10 Active Chest 1V Frontal [CR] Stat Exams 11/22/16 00:10 Taken Sodium Chloride 0.9% [Normal Saline] 1,000 ml Med 11/22/16 00:15 Active IV ASDIRECTED Sodium Chloride 0.9% [Saline Flush] Med 11/22/16 00:09 Active 10 ml FLUSH ASDIRECTED PRN Sodium Chloride 0.9% [Saline Flush] Med 11/22/16 00:09 Active 2.5 ml FLUSH ASDIRECTED PRN Peripheral IV Insertion Adult [OM.PC] Stat Oth 11/22/16 00:10 Ordered Medication Orders Sodium Chloride (Normal Saline) 1,000 mls @ 125 mls/hr IV ASDIRECTED PAU Last Admin: 11/22/16 00:21 Dose: 125 mls/hr Sodium Chloride (Saline Flush) 10 ml FLUSH ASDIRECTED PRN PRN Reason: Keep Vein Open Last Admin: 11/22/16 00:21 Dose: 10 ml Sodium Chloride (Saline Flush) 2.5 ml FLUSH ASDIRECTED PRN PRN Reason: Keep Vein Open Last Admin: 11/22/16 00:21 Dose: 2.5 ml Labs: Laboratory Tests 11/22/16 11/22/16 11/22/16 Range/Units 00:04 00:04 00:04 WBC 9.12 (4.0-11.0) K/uL RBC 5.51 (4.50-5.90) M/uL Hgb 17.7 H (13.0-17.0) g/dL Hct 49.0 (38.0-50.0) % MCV 88.9 (80.0-98.0) fL MCH 32.1 H (27.0-32.0) pg MCHC 36.1 (31.0-37.0) g/dL RDW Std Deviation 39.8 (28.0-62.0) fl RDW Coeff of Conrad 12 (11.0-15.0) % Plt Count 220 (150-400) K/uL MPV 11.20 (7.40-12.00) fL Neut % (Auto) 55.1 (48.0-80.0) % Lymph % (Auto) 36.4 (16.0-40.0) % [place] % (Auto) 7.1 (0.0-15.0) % Eos % (Auto) 1.1 (0.0-7.0) % Baso % (Auto) 0.3 (0.0-1.5) % Neut # (Auto) 5.0 (1.4-5.7) K/uL Lymph # (Auto) 3.3 H (0.6-2.4) K/uL [place] # (Auto) 0.7 (0.0-0.8) K/uL Eos # (Auto) 0.1 (0.0-0.7) K/uL Baso # (Auto) 0.0 (0.0-0.1) K/uL Nucleated RBC % 0.0 /100WBC Nucleated RBCs # 0 K/uL Sodium 137 (136-146) mmol/L Potassium 3.5 (3.5-5.1) mmol/L Chloride 97 L (98-110) mmol/L Carbon Dioxide 21 (21-31) mmol/L BUN 7 (6.0-23.0) mg/dL Creatinine 1.0 (0.6-1.5) mg/dL Est Cr Clr Drug Dosing 79.03 mL/min Estimated GFR (MDRD) > 60.0 ml/min Glucose 137 H (60-110) mg/dL Calcium 9.2 (8.8-10.8) mg/dL Total Bilirubin 0.7 (0.1-1.5) mg/dL AST 72 H (5-40) IU/L ALT 86 H (8-54) IU/L Alkaline Phosphatase 49 (40-150) Troponin I < 0.10 (0.0-0.29) NG/ML Total Protein 8.0 (6.0-8.0) g/dL Albumin 4.7 (3.5-5.0) g/dL Globulin 3.3 (2.0-3.5) g/dL Albumin/Globulin Ratio 1.4 (1.3-2.8) Meds: Medications Generic Name Dose Route Start Last Admin Trade Name Freq PRN Reason Stop Dose Admin Sodium Chloride 1,000 mls @ 125 mls/hr 11/22/16 00:15 11/22/16 00:21 Normal Saline IV 125 mls/hr ASDIRECTED PAU Administration Sodium Chloride 10 ml 11/22/16 00:09 11/22/16 00:21 Saline Flush FLUSH 10 ml ASDIRECTED PRN Administration Keep Vein Open Sodium Chloride 2.5 ml 11/22/16 00:09 11/22/16 00:21 Saline Flush FLUSH 2.5 ml ASDIRECTED PRN Administration Keep Vein Open Discontinued Medications Generic Name Dose Route Start Last Admin Trade Name Chandrika PRN Reason Stop Dose Admin Aspirin 324 mg 11/22/16 00:09 11/22/16 00:20 Aspirin PO 11/22/16 00:10 324 mg ONETIME ONE Administration Nitroglycerin 1 gm 11/22/16 00:52 11/22/16 00:59 Nitro-Bid 2% TOP 11/22/16 00:53 1 gm ONETIME ONE Administration Departure - Departure Time of Disposition: 01:25 Disposition: Refer to Observation Condition: good Clinical Impression: Chest pain, ST segment depression Forms: ED Department Discharge - My Orders Last 24 Hours: My Active Orders 11/22/16 00:09 Sodium Chloride 0.9% [Saline Flush] 10 ml FLUSH ASDIRECTED PRN Sodium Chloride 0.9% [Saline Flush] 2.5 ml FLUSH ASDIRECTED PRN 11/22/16 00:10 EKG 12 Lead [EKG Documentation Completion] [RC] STAT Chest 1V Frontal [CR] Stat Peripheral IV Insertion Adult [OM.PC] Stat 11/22/16 00:15 Sodium Chloride 0.9% [Normal Saline] 1,000 ml IV ASDIRECTED 11/22/16 01:04 Admission Status [Patient Status] [ADT] Stat - Assessment/Plan Last 24 Hours: My Active Orders 11/22/16 00:09 Sodium Chloride 0.9% [Saline Flush] 10 ml FLUSH ASDIRECTED PRN Sodium Chloride 0.9% [Saline Flush] 2.5 ml FLUSH ASDIRECTED PRN 11/22/16 00:10 EKG 12 Lead [EKG Documentation Completion] [RC] STAT Chest 1V Frontal [CR] Stat Peripheral IV Insertion Adult [OM.PC] Stat 11/22/16 00:15 Sodium Chloride 0.9% [Normal Saline] 1,000 ml IV ASDIRECTED 11/22/16 01:04 Admission Status [Patient Status] [ADT] Stat
[2016-11-22 00:34] LABS: CHLORIDE,CL 97 mmol/L (98-110); SODIUM,NA 137 mmol/L (136-146)
[2016-11-22] MEDS ORDERED: Nitroglycerin 2% Oint 1 GM UD Packet TOP ONE (00:52)
[2016-11-22] MEDS ORDERED: LORazepam 2 MG/ML MDV IVPUSH PRN (02:31)
[2016-11-22] MEDS ORDERED: Flu Vaccine 2016-17(36Mos+)/PF 60 MCG/0.5 ML Syringe IM ONE (02:51)
[2016-11-22] MEDS: Morphine 2 MG/ML Syringe IVPUSH PRN ×2 (02:55→09:05)
[2016-11-22] MEDS ORDERED: Pantoprazole 40 MG in Sodium Chloride 0.9% 10 ML IVPUSH SCH (03:30)
[2016-11-22] MEDS: Folic Acid 50 MG/10 ML MDV SUBCUT SCH ×2 (03:37→08:01)
[2016-11-22] MEDS: Thiamine 200 MG/2 ML MDV IV SCH ×2 (03:38→08:01)
[2016-11-22] MEDS ORDERED: cloNIDine 0.1 MG Tab PO PRN (03:57)
[2016-11-22] MEDS ORDERED: Acetaminophen 325 MG Tab PO PRN (03:57)
[2016-11-22 07:51] VITALS: BP 116/70
[2016-11-22] MEDS ORDERED: Venlafaxine 37.5 MG Tab PO SCH (09:00)
[2016-11-22] MEDS ORDERED: Pregabalin 75 MG Cap PO SCH (09:00)
[2016-11-22] MEDS ORDERED: amLODIPine 5 MG Tab PO SCH (09:00)
--- NOTE | 2016-11-22 11:31 | CR ---
EXAM DATE: 11/22/16 PATIENT'S AGE: 41 Patient: ERICKA ROGEL Facility: [place], [place] Site . Site : [id number] Study: XRay Chest [id number]/7/2017 12:41:12 AM Ordering Physician: Ochoa Tolbert Final Report: INDICATIONS: Chest pain x2 weeks. TECHNIQUE: Chest 1 view. COMPARISON: 10/29/2015. FINDINGS: No pneumothorax, pleural effusion or airspace consolidation. Cardiac and mediastinal contours are within normal limits. Upper abdomen and osseous structures show no acute abnormality. IMPRESSION: No acute cardiopulmonary disease. Dictated by Maciej Mcdonnell MD @ 11/22/2016 12:43:06 AM Dictated by: Maciej Mcdonnell MD @ 11/22/2016 00:43:17 (Electronic Signature) Report Signed by Proxy and Original Signed Document filed in the Medical Record. [email or web address]
--- NOTE | 2016-11-22 13:30 | PCM.HP ---
H&P History of Present Illness - General Date of Service: 11/22/16 (Admission and Discharge Summary included in this note. ) Admit Problem/Dx: Chest pain Source of Information: Patient History Limitations: Reports: No limitations - History of Present Illness Initial Comments - Free Text/Narative: Admission and Discharge summary in this note. 41 yo male admitted 11/22/16 for chest pain with history of chronic pancreatitis, hypertension, and alcoholism. Patient presented to ED complaining of chest pain with mild shortness of breath. It had been occuring for the past 2 weeks but he stated he was able to relieve the pain previously with "a deep breath". Pain was not exacerbated by excercise and started at rest. He denied nausea, vomiting, or diaphoresis. He denied recent cold, cough, or diarrhea. Patient is a smoker but he reported that he "just quit". Patient does have a history of hypertension that has been recently fairly well controlled. He also has a long history of alcohol abuse that he reported has cause a peripheral neuropathy as well as his hypertension. He also reported that he does have a family history of heart disease in his father. In ED, there was reported possible mild depression of ST in leads V4 and V5. Intial troponin was negative and CBC, CMP, Amylase, Lipase, and CXR were unremarkable. He was postive for alcohol at 287.4. He was given 324 mg Aspirin and 1 gm top nitro. Chest pain had been relieved in the ED. chest pain Pain Score (Numeric/FACES): 4 - Related Data Allergies/Adverse Reactions: Allergies Allergy/AdvReac Type Severity Reaction Status Date / Time Penicillins Allergy Cannot Verified 11/21/16 23:55 Remember Home Medications: Home Meds amLODIPine [Norvasc] 10 mg PO DAILY #30 tablet 03/07/15 [Rx] Venlafaxine HCl 75 mg PO BID 10/23/16 [History] cloNIDine HCl [Catapres] 0.1 mg PO BID PRN 10/23/16 [History] Folic Acid 1 mg PO DAILY #30 tablet 10/28/16 [Rx] Pregabalin [Lyrica] 150 mg PO BID 11/21/16 [History] Past Medical History HEENT History: Reports: Other (see below) Other HEENT History: oral surgery Cardiovascular History: Reports: Hypertension Respiratory History: Reports: Pneumonia, recurrent Other Respiratory History: Pneumonia Gastrointestinal History: Reports: Pancreatitis Other Gastrointestinal History: Recurrent alcoholic pancreatitis, hx of Necrotizing Pancreatitis Genitourinary History: Reports: None Other Genitourinary History: vasectomy 13 years ago Musculoskeletal History: Reports: Fracture Other Musculoskeletal History: arm Neurological History: Reports: Neuropathy, peripheral Psychiatric History: Reports: Addiction, Anxiety, Depression Endocrine/Metabolic History: Reports: None Hematologic History: Reports: None Immunologic History: Reports: None Oncologic (Cancer) History: Reports: None Dermatologic History: Reports: None - Infectious Disease History Infectious Disease History: Reports: None - Past Surgical History Head Surgeries/Procedures: Reports: None HEENT Surgical History: Reports: Oral surgery, Other (see below) Other HEENT Surgeries/Procedures: wisdom tooth taken out. Cardiovascular Surgical History: Reports: None Respiratory Surgical History: Reports: None GI Surgical History: Reports: None Male Surgical History: Reports: Vasectomy Endocrine Surgical History: Reports: None Neurological Surgical History: Reports: None Musculoskeletal Surgical History: Reports: Arthroscopic knee, Other (see below) Other Musculoskeletal Surgeries/Procedures:: Knee surgery two months ago Oncologic Surgical History: Reports: None Social & Family History - Family History Family Medical History: Noncontributory HEENT: Reports: None Cardiac: Reports: Heart failure Respiratory: Reports: Asthma GI: Reports: None : Reports: None OBGYN: Reports: None Musculoskeletal: Reports: None Neurological: Reports: None Psychiatric: Reports: Anxiety Endocrine/Metabolic: Reports: Diabetes, type II Hematologic: Reports: None Immunologic: Reports: None Dermatologic: Reports: None Oncologic: Reports: Colon - Tobacco Use Smoking Status *Q: Current Every Day Smoker Years of Tobacco use: 20 Packs/Tins Daily: 1 Used Tobacco, but Quit: No Second Hand Smoke Exposure: Yes - Caffeine Use Caffeine Use: Reports: Tea - Alcohol Use Days Per Week of Alcohol Use: 7 Number of Drinks Per Day: 4 Total Drinks Per Week: 28 Date of Last Drink: 11/21/16 - Recreational Drug Use Recreational Drug Use: No Drug Use in Last 12 Months: Yes Recreational Drug Type: Reports: Marijuana/Hashish Other Recreational Drug Type: smoke pot Recreational Drug Use Frequency: Weekly Recreational Drug Last Use: 06/18/16 - Living Situation & Occupation Living situation: Reports: with significant other (Girlfriend Maggy) Occupation: unemployed H&P Review of Systems - Review of Systems: Review Of Systems: See Below General: Denies: fever, chills, malaise HEENT: Denies: headaches, sore throat Pulmonary: Denies: Shortness of Breath, Pleuritic Chest Pain, Cough, Sputum Cardiovascular: Reports: chest pain. Denies: palpitations, edema Gastrointestinal: Denies: Abdominal pain, Black stool, Bloody stool, Diarrhea, Nausea, Vomiting Genitourinary: Denies: dysuria Musculoskeletal: Reports: back pain. Denies: neck pain, leg pain Skin: Denies: cyanosis Psychiatric: Denies: confusion Neurological: Denies: Confusion, Dizziness Hematologic/Lymphatic: Denies: anemia Exam - Exam Exam: See Below - Vital Signs Vital Signs: Last Vital Signs Temp 36.6 C 11/22/16 07:49 Pulse 95 11/22/16 01:33 Resp 18 11/22/16 07:49 BP 116/70 11/22/16 08:00 Pulse Ox 95 11/22/16 07:49 Weight: 81.8 kg - Exam Quality Assessment: DVT prophylaxis General: alert, oriented, cooperative HEENT: Conjunctiva clear, EACs clear, EOMI, Hearing intact, Mucosa moist & pink , Nares patent, Normal nasal septum, Posterior pharynx clear Neck: supple, trachea midline, 2 Lungs: Clear to auscultation, Normal respiratory effort Cardiovascular: regular rate, regular rhythm, normal S1, normal S2 Abdomen: normal bowel sounds, soft Back Exam: normal inspection, full range of motion, NT Extremities: normal inspection, normal pulses. No: calf tenderness, edema Peripheral Pulses: 2+: radial (L), radial (R), posterior tibial (L), posterior tibial (R), dorsalis pedis (L), dorsalis pedis (R) Skin: warm, dry, intact Neurological: cranial nerves intact Neuro Extensive - Mental Status: alert, oriented x3, normal mood/affect, normal cognition Neuro Extensive - Motor, Sensory, Reflexes: CN II-XII intact, normal gait, normal reflexes Psychiatric: alert, normal affect, normal mood - Patient Data Lab Results last 24 hrs: Laboratory Results - last 24 hr 11/22/16 11/22/16 Range/Units 07:12 12:50 Troponin I < 0.10 < 0.10 (0.0-0.29) NG/ML Result Diagrams: 11/22/16 00:04 11/22/16 00:04 *Q Meaningful Use (ADM) - VTE *Q VTE Criteria *Q: - Stroke *Q Stroke Criteria *Q: - AMI *Q AMI Criteria *Q: - Problem List (1) Chest pain SNOMED Code(s): 05554763 ICD Code: R07.9 - CHEST PAIN, UNSPECIFIED Status: Acute Current Visit: Yes (2) Alcoholism SNOMED Code(s): 4496022 ICD Code: F10.20 - ALCOHOL DEPENDENCE, UNCOMPLICATED Status: Acute Current Visit: No Problem List Initiated/Reviewed/Updated: Yes Orders Last 24hrs: Active Orders 24 hr Category Date Time Status CIWAA Assessment [RC] Q4H Care 11/22/16 02:31 Active Communication Order [RC] ROUTINE Care 11/22/16 02:30 Active EKG 12 Lead [EKG Documentation Completion] [RC] URGENT Care 11/22/16 08:47 Active Ready for Discharge [RC] PER UNIT ROUTINE Care 11/22/16 13:19 Active Telemetry Monitoring [Cardiac Monitoring] [RC] Q8H Care 11/22/16 01:20 Active Cardiac [Heart Healthy Diet] [DIET] Diet 11/22/16 Breakfast Active Acetaminophen [Tylenol] Med 11/22/16 03:57 Active 650 mg PO Q4H PRN Folic Acid Med 11/22/16 03:30 Active 1 mg SUBCUT DAILY LORazepam [Ativan] Med 11/22/16 02:31 Active See Protocol IVPUSH Q4H PRN Morphine Med 11/22/16 02:29 Active 2 mg IVPUSH Q3H PRN Pantoprazole [ProTONIX IV] 40 mg Med 11/22/16 03:30 Active Sodium Chloride 0.9% [Normal Saline] 10 ml IVPUSH Q24H Pregabalin [Lyrica] Med 11/22/16 09:00 Active 150 mg PO BID Thiamine [Vitamin B-1] Med 11/22/16 03:30 Active 100 mg IV DAILY Venlafaxine [Effexor] Med 11/22/16 09:00 Active 75 mg PO BID amLODIPine [Norvasc] Med 11/22/16 09:00 Active 10 mg PO DAILY cloNIDine [Catapres] Med 11/22/16 03:57 Active 0.1 mg PO BID PRN Medication Orders Acetaminophen (Tylenol) 650 mg PO Q4H PRN PRN Reason: Pain/headache Last Admin: 11/22/16 08:02 Dose: 650 mg Amlodipine Besylate (Norvasc) 10 mg PO DAILY [facility] Last Admin: 11/22/16 08:00 Dose: 10 mg Clonidine HCl (Catapres) 0.1 mg PO BID PRN PRN Reason: Hypertension Folic Acid (Folic Acid) 1 mg SUBCUT DAILY [facility] Last Admin: 11/22/16 08:01 Dose: 1 mg Admin: 11/22/16 03:37 Dose: 1 mg Sodium Chloride (Normal Saline) 1,000 mls @ 125 mls/hr IV ASDIRECTED [facility] Last Admin: 11/22/16 08:39 Dose: 125 mls/hr Infusion: 11/22/16 08:21 Dose: 125 mls/hr Admin: 11/22/16 00:21 Dose: 125 mls/hr Pantoprazole Sodium 40 mg/ (Sodium Chloride) 10 mls @ 300 mls/hr IVPUSH Q24H [facility] Last Admin: 11/22/16 03:50 Dose: 300 mls/hr Lorazepam (Ativan) 0 mg IVPUSH Q4H PRN; Protocol PRN Reason: alcohol withdrawal Morphine Sulfate (Morphine) 2 mg IVPUSH Q3H PRN PRN Reason: Chest Pain Last Admin: 11/22/16 09:05 Dose: 2 mg Admin: 11/22/16 02:55 Dose: 2 mg Pregabalin (Lyrica) 150 mg PO BID [facility] Last Admin: 11/22/16 08:00 Dose: 150 mg Sodium Chloride (Saline Flush) 10 ml FLUSH ASDIRECTED PRN PRN Reason: Keep Vein Open Last Admin: 11/22/16 00:21 Dose: 10 ml Sodium Chloride (Saline Flush) 2.5 ml FLUSH ASDIRECTED PRN PRN Reason: Keep Vein Open Last Admin: 11/22/16 00:21 Dose: 2.5 ml Thiamine HCl (Vitamin B-1) 100 mg IV DAILY [facility] Last Admin: 11/22/16 08:01 Dose: 100 mg Admin: 11/22/16 03:38 Dose: 100 mg Venlafaxine HCl (Effexor) 75 mg PO BID [facility] Last Admin: 11/22/16 08:00 Dose: 75 mg Assessment/Plan Comment:: 41 yo male admitted 11/22/16 for chest pain with history of chronic pancreatitis, hypertension, and alcoholism. Patient presented to ED complaining of chest pain with mild shortness of breath. It had been occuring for the past 2 weeks but he stated he was able to relieve the pain previously with "a deep breath". Pain was not exacerbated by excercise and started at rest. He denied nausea, vomiting, or diaphoresis. He denied recent cold, cough, or diarrhea. Patient is a smoker but he reported that he "just quit". Patient does have a history of hypertension that has been recently fairly well controlled. He also has a long history of alcohol abuse that he reported has cause a peripheral neuropathy as well as his hypertension. He also reported that he does have a family history of heart disease in his father. In ED, there was reported possible mild depression of ST in leads V4 and V5. Intial troponin was negative and CBC, CMP, Amylase, Lipase, and CXR were unremarkable. He was postive for alcohol at 287.4. He was given 324 mg Aspirin and 1 gm top nitro. Chest pain had been relieved in the ED. Patient was admitted for observation of chest pain on telemetry and serial troponin. Patient continued to have intermittent dull chest pain that was reproducible and not radiating during his stay. There was no associated sob, nausea, or diaphresis. Troponin were negative times 3 and repeat ECG showed no signs of ischemic changes. Patient was discharged in good condition with a scheduled outpatient stress test. Follow-up with his PCP Dr. Verma, and an appointment with wet finisher wool Dr. Almodovar. He was instructed to return to ED if symptoms return or worsen.
== END 2016-11-22 14:14 | disposition home or self-care (01) ==
LOC: MW.ED 23:40 → MW.ICU 11-22 01:18 → MW.ED 11-22 01:37
PROVIDERS: ADMIT Internal Medicine; ATTEND Internal Medicine
DX: R07.9 Chest pain, unspecified (principal); F10.20 Alcohol dependence, uncomplicated; I10 Essential (primary) hypertension; F41.8 Other specified anxiety disorders; Z88.0 Allergy status to penicillin; Z79.899 Other long term (current) drug therapy; Z98.52 Vasectomy status; Z98.890 Other specified postprocedural states; F17.210 Nicotine dependence, cigarettes, uncomplicated
CPT/HCPCS: 36415; 71010; 80053; 82150; 83690; 84484; 85025; 93005; 96361; 96372; 96374; 96375; 96376; 99285; A9270; C9113; G0378; G0480; J2270; J3411; J7040; 96360; 99284

== ENCOUNTER 2016-12-25 14:18 | Emergency (ER) | payer MEDICAID, OTHER, SELFPAY ==
[2016-12-25] MEDS ORDERED: Ondansetron 4 MG Tab.DIS PO ONE (15:04)
[2016-12-25] MEDS ORDERED: Ketorolac 60 MG/2 ML SDV IM ONE (15:04)
[2016-12-25] MEDS ORDERED: Ondansetron 4 MG/2 ML SDV IVPUSH ONE (15:22)
[2016-12-25] MEDS ORDERED: Ketorolac 30 MG/ML SDV IVPUSH ONE (15:22)
[2016-12-25 15:40] LABS: CHLORIDE,CL 102 mmol/L (98-110); SODIUM,NA 143 mmol/L (136-146)
--- NOTE | 2016-12-25 15:44 | EDM.PDOC ---
ED HPI GENERAL MEDICAL PROBLEM - General Chief Complaint: Abdominal Pain Stated Complaint: ABDOMINAL PAIN Time Seen by Provider: 12/25/16 14:52 Source of Information: Reports: Patient History Limitations: Reports: No limitations - History of Present Illness INITIAL COMMENTS - FREE TEXT/NARRATIVE: History of present illness: [] Patient's had a two-year history of continuous pancreatitis secondary to alcoholism. Strength few beers this morning and started having worsening upper abdominal pain. He called his doctor Dr. Verma who told him to come straight to the ER get it taken care of. Review of systems: As per history of present illness and below otherwise all systems reviewed and negative. Past medical history: As per history of present illness and as reviewed below otherwise noncontributory. Surgical history: As per history of present illness and as reviewed below otherwise noncontributory. Social history: No reported history of drug or alcohol abuse. Family history: As per history of present illness and as reviewed below otherwise noncontributory. Physical exam: General: Well developed, well nourished in NAD HEENT: Atraumatic, normocephalic, pupils reactive, negative for conjunctival pallor or scleral icterus, mucous membranes moist, throat clear, neck supple, nontender, trachea midline. Lungs: Clear to auscultation, breath sounds equal bilaterally, chest nontender. Heart: S1S2, regular, negative for clicks, rubs, or JVD. Abdomen: Soft, nondistended, mild epigastric tenderness without rebound or guarding. Negative for masses or hepatosplenomegaly. Negative for costovertebral tenderness. Pelvis: Stable nontender. Genitourinary: Deferred. Rectal: Deferred. Extremities: Atraumatic, negative for cords or calf pain. Neurovascular unremarkable. Neuro: Awake, alert, oriented. Cranial nerves II through XII unremarkable. Cerebellum unremarkable. Motor and sensory unremarkable throughout. Exam nonfocal. Diagnostics: [] Labs including lipase are normal Therapeutics: [] Patient started on Pepcid he was given Toradol and Zofran while in the ED Impression: [] Gastritis secondary to alcohol abuse Plan: [] Take Prilosec twice a day followup with primary care doctor stop drinking alcohol Definitive disposition and diagnosis as appropriate pending reevaluation and review of above. Middle Abdomen Pain Score (Numeric/FACES): 6 - Related Data Allergies Allergy/AdvReac Type Severity Reaction Status Date / Time Penicillins Allergy Cannot Verified 12/25/16 14:28 Remember Home Meds: Home Meds amLODIPine [Norvasc] 10 mg PO DAILY #30 tablet 03/07/15 [Rx] Venlafaxine HCl 75 mg PO BID 10/23/16 [History] cloNIDine HCl [Catapres] 0.1 mg PO BID PRN 10/23/16 [History] Folic Acid 1 mg PO DAILY #30 tablet 10/28/16 [Rx] Pregabalin [Lyrica] 150 mg PO BID 11/21/16 [History] Cyclobenzaprine [Flexeril] 10 mg PO TID 12/25/16 [History] Hydrochlorothiazide 25 mg PO DAILY 12/25/16 [History] Past Medical History HEENT History: Reports: Other (see below) Other HEENT History: oral surgery Cardiovascular History: Reports: Hypertension Respiratory History: Reports: Pneumonia, recurrent Other Respiratory History: Pneumonia Gastrointestinal History: Reports: Pancreatitis Other Gastrointestinal History: Recurrent alcoholic pancreatitis, hx of Necrotizing Pancreatitis Genitourinary History: Reports: None Other Genitourinary History: vasectomy 13 years ago Musculoskeletal History: Reports: Fracture Other Musculoskeletal History: arm Neurological History: Reports: Neuropathy, peripheral Psychiatric History: Reports: Addiction, Anxiety, Depression Endocrine/Metabolic History: Reports: None Hematologic History: Reports: None Immunologic History: Reports: None Oncologic (Cancer) History: Reports: None Dermatologic History: Reports: None - Infectious Disease History Infectious Disease History: Reports: None - Past Surgical History Head Surgeries/Procedures: Reports: None HEENT Surgical History: Reports: Oral surgery, Other (see below) Other HEENT Surgeries/Procedures: wisdom tooth taken out. Cardiovascular Surgical History: Reports: None Respiratory Surgical History: Reports: None GI Surgical History: Reports: None Male Surgical History: Reports: Vasectomy Endocrine Surgical History: Reports: None Neurological Surgical History: Reports: None Musculoskeletal Surgical History: Reports: Arthroscopic knee, Other (see below) Other Musculoskeletal Surgeries/Procedures:: Knee surgery two months ago Oncologic Surgical History: Reports: None Social & Family History - Family History Family Medical History: Noncontributory HEENT: Reports: None Cardiac: Reports: Heart failure Respiratory: Reports: Asthma GI: Reports: None : Reports: None OBGYN: Reports: None Musculoskeletal: Reports: None Neurological: Reports: None Psychiatric: Reports: Anxiety Endocrine/Metabolic: Reports: Diabetes, type II Hematologic: Reports: None Immunologic: Reports: None Dermatologic: Reports: None Oncologic: Reports: Colon - Tobacco Use Smoking Status *Q: Current Every Day Smoker Years of Tobacco use: 25 Packs/Tins Daily: 0.5 Used Tobacco, but Quit: No Second Hand Smoke Exposure: No - Caffeine Use Caffeine Use: Reports: None - Alcohol Use Days Per Week of Alcohol Use: 7 Number of Drinks Per Day: 9 Total Drinks Per Week: 63 - Recreational Drug Use Recreational Drug Use: No Drug Use in Last 12 Months: Yes Recreational Drug Type: Reports: Marijuana/Hashish Other Recreational Drug Type: smoke pot Recreational Drug Use Frequency: Weekly Recreational Drug Last Use: 06/18/16 - Living Situation & Occupation Living situation: Reports: with significant other (Girlfriend Maggy) Occupation: unemployed ED ROS GENERAL - Review of Systems Review Of Systems: See Below (See history of present illness) ED EXAM, GI/ABD - Physical Exam Exam: See Below (See history of present illness) Course - Vital Signs Last Recorded V/S: Last Vital Signs Temp 36.2 C 12/25/16 14:31 Pulse 84 12/25/16 14:31 Resp 16 12/25/16 14:31 BP 157/97 H 12/25/16 14:31 Pulse Ox 96 12/25/16 14:31 - Orders/Labs/Meds Orders: Active Orders 24 hr Category Date Time Status Famotidine [Pepcid] Med 12/25/16 16:06 Once 20 mg PO ONETIME ONE Medication Orders Famotidine (Pepcid) 20 mg PO ONETIME ONE Stop: 12/25/16 16:07 Labs: Laboratory Tests 12/25/16 12/25/16 Range/Units 15:18 15:18 WBC 5.89 (4.0-11.0) K/uL RBC 4.71 (4.50-5.90) M/uL Hgb 14.8 (13.0-17.0) g/dL Hct 42.6 (38.0-50.0) % MCV 90.4 (80.0-98.0) fL MCH 31.4 (27.0-32.0) pg MCHC 34.7 (31.0-37.0) g/dL RDW Std Deviation 39.5 (28.0-62.0) fl RDW Coeff of Conrad 12 (11.0-15.0) % Plt Count 168 (150-400) K/uL MPV 10.50 (7.40-12.00) fL Neut % (Auto) 49.3 (48.0-80.0) % Lymph % (Auto) 42.6 H (16.0-40.0) % Weston % (Auto) 5.3 (0.0-15.0) % Eos % (Auto) 2.0 (0.0-7.0) % Baso % (Auto) 0.8 (0.0-1.5) % Neut # (Auto) 2.9 (1.4-5.7) K/uL Lymph # (Auto) 2.5 H (0.6-2.4) K/uL Weston # (Auto) 0.3 (0.0-0.8) K/uL Eos # (Auto) 0.1 (0.0-0.7) K/uL Baso # (Auto) 0.1 (0.0-0.1) K/uL Nucleated RBC % 0.0 /100WBC Nucleated RBCs # 0 K/uL Sodium 143 (136-146) mmol/L Potassium 3.6 (3.5-5.1) mmol/L Chloride 102 (98-110) mmol/L Carbon Dioxide 29 (21-31) mmol/L BUN 11 (6.0-23.0) mg/dL Creatinine 0.8 (0.6-1.5) mg/dL Est Cr Clr Drug Dosing 142.71 mL/min Estimated GFR (MDRD) > 60.0 ml/min Glucose 156 H (60-110) mg/dL Calcium 8.7 L (8.8-10.8) mg/dL Total Bilirubin 0.5 (0.1-1.5) mg/dL AST 52 H (5-40) IU/L ALT 52 (8-54) IU/L Alkaline Phosphatase 52 (40-150) Total Protein 7.1 (6.0-8.0) g/dL Albumin 4.1 (3.5-5.0) g/dL Globulin 3.0 (2.0-3.5) g/dL Albumin/Globulin Ratio 1.4 (1.3-2.8) Lipase 12 (7-80) U/L Meds: Medications Generic Name Dose Route Start Last Admin Trade Name Freq PRN Reason Stop Dose Admin Famotidine 20 mg 12/25/16 16:06 Pepcid PO 12/25/16 16:07 ONETIME ONE Discontinued Medications Generic Name Dose Route Start Last Admin Trade Name Freq PRN Reason Stop Dose Admin Ketorolac Tromethamine 60 mg 12/25/16 15:04 Toradol IM 12/25/16 15:05 ONETIME ONE Ketorolac Tromethamine 30 mg 12/25/16 15:22 12/25/16 15:30 Toradol IVPUSH 12/25/16 15:23 30 mg ONETIME ONE Administration Ondansetron HCl 4 mg 12/25/16 15:04 Zofran Odt PO 12/25/16 15:05 ONETIME ONE Ondansetron HCl 4 mg 12/25/16 15:22 12/25/16 15:30 Zofran IVPUSH 12/25/16 15:23 4 mg ONETIME ONE Administration Departure - Departure Time of Disposition: 16:08 Disposition: Home, Self-Care 01 Condition: good Clinical Impression: Gastritis Qualifiers: Gastritis type: alcoholic Chronicity: unspecified Gastritis bleeding: without bleeding Qualified Code(s): K29.20 - Alcoholic gastritis without bleeding - Discharge Information Referrals: Prasanth Verma MD [Primary Care Provider] - Forms: ED Department Discharge Additional Instructions: The following information is given to patients seen in the emergency department who are being discharged to home. This information is to outline your options for follow-up care. We provide all patients seen in our emergency department with a follow-up referral. The need for follow-up, as well as the timing and circumstances, are variable depending upon the specifics of your emergency department visit. If you don't have a primary care physician on staff, we will provide you with a referral. We always advise you to contact your personal physician following an emergency department visit to inform them of the circumstance of the visit and for follow-up with them and/or the need for any referrals to a consulting specialist. The emergency department will also refer you to a specialist when appropriate. This referral assures that you have the opportunity for follow-up care with a specialist. All of these measure are taken in an effort to provide you with optimal care, which includes your follow-up. Under all circumstances we always encourage you to contact your private physician who remains a resource for coordinating your care. When calling for follow-up care, please make the office aware that this follow-up is from your recent emergency room visit. If for any reason you are refused follow-up, please contact the [facility] Emergency Department at and asked to speak to the emergency department charge nurse. Take Prilosec (omeprazole) twice a day. Stop drinking alcohol. We'll put her primary care physician [facility] [address] [place] [phone] - My Orders Last 24 Hours: My Active Orders 12/25/16 16:06 Famotidine [Pepcid] 20 mg PO ONETIME ONE - Assessment/Plan Last 24 Hours: My Active Orders 12/25/16 16:06 Famotidine [Pepcid] 20 mg PO ONETIME ONE
[2016-12-25] MEDS ORDERED: Famotidine 20 MG Tab PO ONE (16:06)
[2016-12-25 16:48] VITALS: BP 135/96
== END 2016-12-25 16:48 | disposition home or self-care (01) ==
LOC: MW.ED 14:18
DX: K29.20 Alcoholic gastritis without bleeding (principal); I10 Essential (primary) hypertension; F41.8 Other specified anxiety disorders; F17.210 Nicotine dependence, cigarettes, uncomplicated; Z98.890 Other specified postprocedural states; Z88.0 Allergy status to penicillin; Z79.899 Other long term (current) drug therapy
CPT/HCPCS: 36415; 80053; 83690; 85025; 96374; 96375; 99284; A9270; J1885; J2405

== ENCOUNTER 2016-12-26 19:04 | Inpatient (IN) | payer MEDICAID ==
[2016-12-26] MEDS ORDERED: Ondansetron 4 MG/2 ML SDV IVPUSH ONE (19:30)
[2016-12-26] MEDS ORDERED: Sodium Chloride 0.9% 1,000 ML IV ONE (19:30)
[2016-12-26] MEDS ORDERED: Sodium Chloride 0.9% 2.5 ML Syringe FLUSH PRN (19:30)
[2016-12-26] MEDS ORDERED: Pantoprazole 40 MG Vial IVPUSH ONE (19:30)
[2016-12-26] MEDS ORDERED: HYDROmorphone 2 MG/ML Syringe IVPUSH ONE ×2 (19:30→21:43)
--- NOTE | 2016-12-26 19:38 | EDM.PDOC ---
ED HPI GENERAL MEDICAL PROBLEM - General Chief Complaint: Abdominal Pain Stated Complaint: ABDOMINAL PAIN Time Seen by Provider: 12/26/16 19:18 - History of Present Illness INITIAL COMMENTS - FREE TEXT/NARRATIVE: HISTORY AND PHYSICAL: History of present illness: The patient is a 41-year-old male with a history of hypertension, alcohol abuse and multiple visits and admissions for pancreatitis and a pancreatic cyst for which he was seen by a peanut blancher in [place] 18 months ago but was discharged from his care; patient presents with persistent epigastric and left upper abdominal pain that has been ongoing almost continuous over the last few months but with waxing and waning intensity. The patient was seen here yesterday for same and was treated with Zofran Toradol and Pepcid and labs were checked which were normal. The patient states he spoke with his provider, Dr Verma, yesterday before coming to the ER and then recontacted the clinic today but was told that if the pain was persisting to come back to the ER. He has not seen his provider with this new episode of pain. The pain is similar to his prior episodes and he has had nausea and vomiting associated with it and inability to eat. He has not been hydrating but he has been drinking beer. Patient states he last drank beer about 3 hours ago and this is drink of choice. The patient states he knows he has a problem with his alcohol and that he is waiting to get into a program and was told that there was a 4-6 week in order to get into that inpatient program. He has had prior admissions for chest pain in fact he had one on November 22 and ruled out and was scheduled for outpatient stress testing and missed both appointments including the one this past Friday. He says he is not had chest pain so he did not go to appointments. She currently denies any chest pain or shortness of breath. He has had normal bowel movements are not black or bloody and there's been no diarrhea. He's had no urinary issues. The pain is dull achy and deep. He did not take anything for the pain and has nothing at home for nausea. Patient does not feel shaky currently Review of systems: As per history of present illness and below otherwise all systems reviewed and negative. Past medical history: As per history of present illness and as reviewed below otherwise noncontributory. Surgical history: As per history of present illness and as reviewed below otherwise noncontributory. Social history: No reported history of drug or alcohol abuse. Family history: As per history of present illness and as reviewed below otherwise noncontributory. Physical exam: General: Well-developed well-nourished man speaking clearly and easily in the ED. His speech is not slurred but there is a smell of alcohol in his breath. He is not tremulous and his vital signs are noted by me HEENT: Atraumatic, normocephalic, pupils reactive, negative for conjunctival pallor or scleral icterus, mucous membranes tacky, throat clear, neck supple, nontender, trachea midline. Lungs: Clear to auscultation, breath sounds equal bilaterally, chest nontender. Heart: S1S2, regular, negative for clicks, rubs, or JVD. Abdomen: Soft, nondistended, with mild tenderness on palpation in the epigastrium and left upper abdomen when distracted, bowel sounds are hypoactive and there is no rebound or guarding on my exam Negative for masses or hepatosplenomegaly. Negative for costovertebral tenderness. Pelvis: Stable nontender. Genitourinary: Deferred. Rectal: Deferred. Extremities: Atraumatic, negative for cords or calf pain. Neurovascular unremarkable. No pedal edema Neuro: Awake, alert, oriented. Cranial nerves II through XII unremarkable. Cerebellum unremarkable. Motor and sensory unremarkable throughout. Exam nonfocal. No tremulousness Diagnostics: CBC CMP amylase lipase INR magnesium level EtOH level and UA CT scan of the abdomen and pelvis Therapeutics: IV fluids Zofran Protonix Dilaudid and banana bag Ativan Please note that I have reviewed the prior charts on the admission of October 23 of this year as well as November 22. 2119: Testing results were discussed with our hospitalist Dr. Hurt; he is going to come and evaluate the patient as we currently have no ICU beds and he is concerned about the patient going into withdrawal once his alcohol level becomes more normalized. I discussed this situation with the patient and his girlfriend at bedside and the patient does not want to be transferred to [facility] and states that of late he has been working during the day and not drinking during the day and that he has had no issues with withdrawal symptoms. He would like to be admitted here and I will let him have that conversation with Dr. Hurt. 2129: Dr. Hurt is here in the ER evaluating the patient and discussing care plan with him 2140: Dr. Hurt has agreed to admit the patient here to telemetry and the patient is comfortable with this care plan. Patient continues to not be tachycardic and not exhibit any signs of tremulousness Recurrent pancreatitis secondary to alcohol abuse; mild alcohol intoxication with history of alcohol abuse Definitive disposition and diagnosis as appropriate pending reevaluation and review of above. Abdominal Pain Score (Numeric/FACES): 8 - Related Data Allergies Allergy/AdvReac Type Severity Reaction Status Date / Time Penicillins Allergy Cannot Verified 12/26/16 19:07 Remember Home Meds: Home Meds amLODIPine [Norvasc] 10 mg PO DAILY #30 tablet 03/07/15 [Rx] Venlafaxine HCl 75 mg PO BID 10/23/16 [History] cloNIDine HCl [Catapres] 0.1 mg PO BID PRN 10/23/16 [History] Folic Acid 1 mg PO DAILY #30 tablet 10/28/16 [Rx] Pregabalin [Lyrica] 150 mg PO BID 11/21/16 [History] Cyclobenzaprine [Flexeril] 10 mg PO TID 12/25/16 [History] Hydrochlorothiazide 25 mg PO DAILY 12/25/16 [History] Past Medical History HEENT History: Reports: Other (see below) Other HEENT History: oral surgery Cardiovascular History: Reports: Hypertension Respiratory History: Reports: Pneumonia, recurrent Other Respiratory History: Pneumonia Gastrointestinal History: Reports: Pancreatitis Other Gastrointestinal History: Recurrent alcoholic pancreatitis, hx of Necrotizing Pancreatitis Genitourinary History: Reports: None Other Genitourinary History: vasectomy 13 years ago Musculoskeletal History: Reports: Fracture Other Musculoskeletal History: arm Neurological History: Reports: Neuropathy, peripheral Psychiatric History: Reports: Addiction, Anxiety, Depression Endocrine/Metabolic History: Reports: None Hematologic History: Reports: None Immunologic History: Reports: None Oncologic (Cancer) History: Reports: None Dermatologic History: Reports: None - Infectious Disease History Infectious Disease History: Reports: Chicken pox - Past Surgical History Head Surgeries/Procedures: Reports: None HEENT Surgical History: Reports: Oral surgery, Other (see below) Other HEENT Surgeries/Procedures: wisdom tooth taken out. Cardiovascular Surgical History: Reports: None Respiratory Surgical History: Reports: None GI Surgical History: Reports: None Male Surgical History: Reports: Vasectomy Endocrine Surgical History: Reports: None Neurological Surgical History: Reports: None Musculoskeletal Surgical History: Reports: Arthroscopic knee, Other (see below) Other Musculoskeletal Surgeries/Procedures:: Knee surgery two months ago Oncologic Surgical History: Reports: None Social & Family History - Family History Family Medical History: Noncontributory HEENT: Reports: None Cardiac: Reports: Heart failure Respiratory: Reports: Asthma GI: Reports: None : Reports: None OBGYN: Reports: None Musculoskeletal: Reports: None Neurological: Reports: None Psychiatric: Reports: Anxiety Endocrine/Metabolic: Reports: Diabetes, type II Hematologic: Reports: None Immunologic: Reports: None Dermatologic: Reports: None Oncologic: Reports: Colon - Tobacco Use Smoking Status *Q: Current Every Day Smoker Years of Tobacco use: 25 Packs/Tins Daily: 0.5 Used Tobacco, but Quit: No Tobacco Use Comment: chew tobacco for 25 years Second Hand Smoke Exposure: No - Caffeine Use Caffeine Use: Reports: None - Alcohol Use Days Per Week of Alcohol Use: 7 Number of Drinks Per Day: 9 Total Drinks Per Week: 63 - Recreational Drug Use Recreational Drug Use: No Drug Use in Last 12 Months: Yes Recreational Drug Type: Reports: Marijuana/Hashish Other Recreational Drug Type: smoke pot Recreational Drug Use Frequency: Weekly Recreational Drug Last Use: 06/18/16 - Living Situation & Occupation Living situation: Reports: with significant other (Girlfriend Maggy) Occupation: unemployed ED ROS GENERAL - Review of Systems Review Of Systems: ROS reveals no pertinent complaints other than HPI. ED EXAM, GENERAL - Physical Exam Exam: See Below (See dictation) Course - Vital Signs Last Recorded V/S: Last Vital Signs Temp 36.6 C 12/26/16 19:07 Pulse 91 12/26/16 21:26 Resp 17 12/26/16 21:26 BP 158/94 H 12/26/16 21:26 Pulse Ox 95 12/26/16 21:26 - Orders/Labs/Meds Orders: Active Orders 24 hr Category Date Time Status Abdomen Pelvis w Cont [CT] Stat Exams 12/26/16 19:30 Taken MVI, Adult with Vitamin K [Infuvite Adult] 10 ml Med 12/26/16 21:38 Ordered Thiamine [Vitamin B-1] 100 mg Folic Acid 1 mg Magnesium Sulfate [Magnesium Sulfate 50%] 1 gm Sodium Chloride 0.9% [Normal Saline] 1,000 ml IV ONETIME Sodium Chloride 0.9% [Saline Flush] Med 12/26/16 19:30 Active 10 ml FLUSH ASDIRECTED PRN Sodium Chloride 0.9% [Saline Flush] Med 12/26/16 19:30 Active 2.5 ml FLUSH ASDIRECTED PRN Saline Lock Insert [OM.PC] Stat Oth 12/26/16 19:29 Ordered Medication Orders Multivitamins/Minerals 10 ml/Thiamine HCl 100 mg/ Folic Acid 1 mg/ Magnesium Sulfate 1 gm/ Sodium Chloride 1,013.2 mls @ 150 mls/hr IV ONETIME ONE Stop: 12/27/16 04:23 Sodium Chloride (Saline Flush) 10 ml FLUSH ASDIRECTED PRN PRN Reason: Keep Vein Open Last Admin: 12/26/16 20:00 Dose: 10 ml Admin: 12/26/16 19:56 Dose: 10 ml Sodium Chloride (Saline Flush) 2.5 ml FLUSH ASDIRECTED PRN PRN Reason: Keep Vein Open Last Admin: 12/26/16 19:59 Dose: 2.5 ml Labs: Laboratory Tests 12/26/16 12/26/16 12/26/16 Range/Units 19:45 19:49 19:49 WBC 9.92 (4.0-11.0) K/uL RBC 4.81 (4.50-5.90) M/uL Hgb 15.1 (13.0-17.0) g/dL Hct 43.0 (38.0-50.0) % MCV 89.4 (80.0-98.0) fL MCH 31.4 (27.0-32.0) pg MCHC 35.1 (31.0-37.0) g/dL RDW Std Deviation 38.5 (28.0-62.0) fl RDW Coeff of Conrad 12 (11.0-15.0) % Plt Count 184 (150-400) K/uL MPV 10.50 (7.40-12.00) fL Neut % (Auto) 71.3 (48.0-80.0) % Lymph % (Auto) 21.7 (16.0-40.0) % Cook % (Auto) 5.5 (0.0-15.0) % Eos % (Auto) 1.1 (0.0-7.0) % Baso % (Auto) 0.4 (0.0-1.5) % Neut # (Auto) 7.1 H (1.4-5.7) K/uL Lymph # (Auto) 2.2 (0.6-2.4) K/uL Cook # (Auto) 0.6 (0.0-0.8) K/uL Eos # (Auto) 0.1 (0.0-0.7) K/uL Baso # (Auto) 0.0 (0.0-0.1) K/uL Nucleated RBC % 0.0 /100WBC Nucleated RBCs # 0 K/uL INR 0.98 (0.86-1.11) Sodium (136-146) mmol/L Potassium (3.5-5.1) mmol/L Chloride (98-110) mmol/L Carbon Dioxide (21-31) mmol/L BUN (6.0-23.0) mg/dL Creatinine (0.6-1.5) mg/dL Est Cr Clr Drug Dosing mL/min Estimated GFR (MDRD) ml/min Glucose (60-110) mg/dL Calcium (8.8-10.8) mg/dL Magnesium (1.5-2.3) mEq/L Total Bilirubin (0.1-1.5) mg/dL AST (5-40) IU/L ALT (8-54) IU/L Alkaline Phosphatase (40-150) Total Protein (6.0-8.0) g/dL Albumin (3.5-5.0) g/dL Globulin (2.0-3.5) g/dL Albumin/Globulin Ratio (1.3-2.8) Amylase (10-90) U/L Lipase (7-80) U/L Urine Color YELLOW Urine Appearance CLEAR Urine pH 7.0 (5.0-8.0) Ur Specific Mcgehee 1.015 (1.001-1.035) Urine Protein NEGATIVE (NEGATIVE) mg/dL Urine Glucose (UA) NEGATIVE (NEGATIVE) mg/dL Urine Ketones 40 H (NEGATIVE) mg/dL Urine Occult Blood NEGATIVE (NEGATIVE) Urine Nitrite NEGATIVE (NEGATIVE) Urine Bilirubin NEGATIVE (NEGATIVE) Urine Urobilinogen 0.2 (<2.0) EU/dL Ur Leukocyte Esterase NEGATIVE (NEGATIVE) Urine RBC NONE SEEN (0-2/HPF) Urine WBC 0-2 (0-5/HPF) Ur Epithelial Cells RARE (NONE-FEW) Urine Bacteria RARE (NEGATIVE) Ethyl Alcohol mg/dL 12/26/16 Range/Units 19:49 WBC (4.0-11.0) K/uL RBC (4.50-5.90) M/uL Hgb (13.0-17.0) g/dL Hct (38.0-50.0) % MCV (80.0-98.0) fL MCH (27.0-32.0) pg MCHC (31.0-37.0) g/dL RDW Std Deviation (28.0-62.0) fl RDW Coeff of Conrad (11.0-15.0) % Plt Count (150-400) K/uL MPV (7.40-12.00) fL Neut % (Auto) (48.0-80.0) % Lymph % (Auto) (16.0-40.0) % Cook % (Auto) (0.0-15.0) % Eos % (Auto) (0.0-7.0) % Baso % (Auto) (0.0-1.5) % Neut # (Auto) (1.4-5.7) K/uL Lymph # (Auto) (0.6-2.4) K/uL Cook # (Auto) (0.0-0.8) K/uL Eos # (Auto) (0.0-0.7) K/uL Baso # (Auto) (0.0-0.1) K/uL Nucleated RBC % /100WBC Nucleated RBCs # K/uL INR (0.86-1.11) Sodium 140 (136-146) mmol/L Potassium 3.6 (3.5-5.1) mmol/L Chloride 101 (98-110) mmol/L Carbon Dioxide 22 (21-31) mmol/L BUN 13 (6.0-23.0) mg/dL Creatinine 0.7 (0.6-1.5) mg/dL Est Cr Clr Drug Dosing 163.10 mL/min Estimated GFR (MDRD) > 60.0 ml/min Glucose 122 H (60-110) mg/dL Calcium 8.6 L (8.8-10.8) mg/dL Magnesium 1.4 L (1.5-2.3) mEq/L Total Bilirubin 0.6 (0.1-1.5) mg/dL AST 45 H (5-40) IU/L ALT 45 (8-54) IU/L Alkaline Phosphatase 53 (40-150) Total Protein 7.3 (6.0-8.0) g/dL Albumin 4.4 (3.5-5.0) g/dL Globulin 2.9 (2.0-3.5) g/dL Albumin/Globulin Ratio 1.5 (1.3-2.8) Amylase 99 H (10-90) U/L Lipase 103 H (7-80) U/L Urine Color Urine Appearance Urine pH (5.0-8.0) Ur Specific Mcgehee (1.001-1.035) Urine Protein (NEGATIVE) mg/dL Urine Glucose (UA) (NEGATIVE) mg/dL Urine Ketones (NEGATIVE) mg/dL Urine Occult Blood (NEGATIVE) Urine Nitrite (NEGATIVE) Urine Bilirubin (NEGATIVE) Urine Urobilinogen (<2.0) EU/dL Ur Leukocyte Esterase (NEGATIVE) Urine RBC (0-2/HPF) Urine WBC (0-5/HPF) Ur Epithelial Cells (NONE-FEW) Urine Bacteria (NEGATIVE) Ethyl Alcohol 182.1 mg/dL Meds: Medications Generic Name Dose Route Start Last Admin Trade Name Freq PRN Reason Stop Dose Admin Multivitamins/Minerals 10 ml/ 1,013.2 mls @ 150 mls/hr 12/26/16 21:38 Thiamine HCl 100 mg/ Folic IV 12/27/16 04:23 Acid 1 mg/ Magnesium Sulfate 1 ONETIME ONE gm/ Sodium Chloride Sodium Chloride 10 ml 12/26/16 19:30 12/26/16 20:00 Saline Flush FLUSH 10 ml ASDIRECTED PRN Administration Keep Vein Open Sodium Chloride 2.5 ml 12/26/16 19:30 12/26/16 19:59 Saline Flush FLUSH 2.5 ml ASDIRECTED PRN Administration Keep Vein Open Discontinued Medications Generic Name Dose Route Start Last Admin Trade Name Freq PRN Reason Stop Dose Admin Hydromorphone HCl 1 mg 12/26/16 19:30 12/26/16 19:59 Dilaudid IVPUSH 12/26/16 19:31 1 mg ONETIME ONE Administration Hydromorphone HCl 1 mg 12/26/16 21:43 Dilaudid IVPUSH 12/26/16 21:44 ONETIME ONE Sodium Chloride 1,000 mls @ 999 mls/hr 12/26/16 19:30 12/26/16 19:55 Normal Saline IV 12/26/16 20:30 999 mls/hr STAT ONE Administration Iopamidol 100 ml 12/26/16 20:51 12/26/16 20:51 Isovue Multipack-370 (76%) IVPUSH 12/26/16 20:52 100 ml ONETIME STA Administration Lorazepam 1 mg 12/26/16 21:43 Ativan IVPUSH 12/26/16 21:44 ONETIME ONE Ondansetron HCl 4 mg 12/26/16 19:30 12/26/16 19:59 Zofran IVPUSH 12/26/16 19:31 4 mg ONETIME ONE Administration Pantoprazole Sodium 80 mg 12/26/16 19:30 12/26/16 20:00 Protonix Iv IVPUSH 12/26/16 19:31 80 mg .BOLUS ONE Administration Departure - Departure Time of Disposition: 21:45 Disposition: Admitted As Inpatient 67 Condition: good Clinical Impression: Pancreatitis, alcoholic, acute Qualifiers: Acute pancreatitis complication: no infection or necrosis Qualified Code(s): K85.20 - Alcohol induced acute pancreatitis without necrosis or infection - Discharge Information Forms: ED Department Discharge - My Orders Last 24 Hours: My Active Orders 12/26/16 19:29 Saline Lock Insert [OM.PC] Stat 12/26/16 19:30 Abdomen Pelvis w Cont [CT] Stat Sodium Chloride 0.9% [Saline Flush] 10 ml FLUSH ASDIRECTED PRN Sodium Chloride 0.9% [Saline Flush] 2.5 ml FLUSH ASDIRECTED PRN 12/26/16 21:38 MVI, Adult with Vitamin K [Infuvite Adult] 10 ml Thiamine [Vitamin B-1] 100 mg Folic Acid 1 mg Magnesium Sulfate [Magnesium Sulfate 50%] 1 gm Sodium Chloride 0.9% [Normal Saline] 1,000 ml IV ONETIME - Assessment/Plan Last 24 Hours: My Active Orders 12/26/16 19:29 Saline Lock Insert [OM.PC] Stat 12/26/16 19:30 Abdomen Pelvis w Cont [CT] Stat Sodium Chloride 0.9% [Saline Flush] 10 ml FLUSH ASDIRECTED PRN Sodium Chloride 0.9% [Saline Flush] 2.5 ml FLUSH ASDIRECTED PRN 12/26/16 21:38 MVI, Adult with Vitamin K [Infuvite Adult] 10 ml Thiamine [Vitamin B-1] 100 mg Folic Acid 1 mg Magnesium Sulfate [Magnesium Sulfate 50%] 1 gm Sodium Chloride 0.9% [Normal Saline] 1,000 ml IV ONETIME
[2016-12-26] MEDS: Sodium Chloride 0.9% 10 ML Syringe FLUSH PRN ×3 (19:56→21:56)
[2016-12-26 20:22] LABS: CHLORIDE,CL 101 mmol/L (98-110); SODIUM,NA 140 mmol/L (136-146)
[2016-12-26] MEDS ORDERED: Iopamidol 755 MG/ML 500 ML Multipack Bottle IVPUSH STA (20:51)
[2016-12-26] MEDS ORDERED: MVI, Adult with Vitamin K 10 ML, Thiamine 100 MG, Folic Acid 1 MG, Magnesium Sulfate 1 ... IV ONE ×5 (21:38)
[2016-12-26] MEDS ORDERED: LORazepam 2 MG/ML MDV IVPUSH ONE (21:43)
[2016-12-26] MEDS ORDERED: Temazepam 15 MG Cap PO PRN (21:51)
[2016-12-26] MEDS ORDERED: LORazepam 2 MG/ML MDV IM PRN (21:51)
[2016-12-26] MEDS ORDERED: cloNIDine 0.1 MG Tab PO PRN (21:55)
[2016-12-26] MEDS ORDERED: LORazepam 2 MG/ML MDV IM SCH (22:00)
--- NOTE | 2016-12-26 22:03 | PCM.HP ---
H&P History of Present Illness - General Date of Service: 12/26/16 Admit Problem/Dx: Admission Diagnosis/Problem Admission Diagnosis/Problem Pancreatitis Source of Information: Patient, Family, Provider - History of Present Illness Initial Comments - Free Text/Narative: He presents with abdominal pain and vomiting as per Dr Clark's thorough note. He refuses transfer to [place]. He has a prior history of pancreatitis. Abdominal Pain Score (Numeric/FACES): 8 - Related Data Allergies/Adverse Reactions: Allergies Allergy/AdvReac Type Severity Reaction Status Date / Time Penicillins Allergy Cannot Verified 12/26/16 19:07 Remember Home Medications: Home Meds amLODIPine [Norvasc] 10 mg PO DAILY #30 tablet 03/07/15 [Rx] Venlafaxine HCl 75 mg PO BID 10/23/16 [History] cloNIDine HCl [Catapres] 0.1 mg PO BID PRN 10/23/16 [History] Folic Acid 1 mg PO DAILY #30 tablet 10/28/16 [Rx] Pregabalin [Lyrica] 150 mg PO BID 11/21/16 [History] Cyclobenzaprine [Flexeril] 10 mg PO TID 12/25/16 [History] Hydrochlorothiazide 25 mg PO DAILY 12/25/16 [History] Past Medical History HEENT History: Reports: Other (see below) Other HEENT History: oral surgery Cardiovascular History: Reports: Hypertension Respiratory History: Reports: Pneumonia, recurrent. Denies: COPD, Cystic Fibrosis Other Respiratory History: Pneumonia Gastrointestinal History: Reports: Pancreatitis. Denies: Cirrhosis Other Gastrointestinal History: Recurrent alcoholic pancreatitis, hx of Necrotizing Pancreatitis Genitourinary History: Reports: None. Denies: Chronic renal insuffiency Other Genitourinary History: vasectomy 13 years ago Musculoskeletal History: Reports: Fracture Other Musculoskeletal History: arm Neurological History: Reports: Neuropathy, peripheral Psychiatric History: Reports: Addiction, Anxiety, Depression Endocrine/Metabolic History: Reports: None. Denies: Diabetes, type I, Diabetes , type II Hematologic History: Reports: None Immunologic History: Reports: None Oncologic (Cancer) History: Reports: None Dermatologic History: Reports: None - Infectious Disease History Infectious Disease History: Reports: Chicken pox - Past Surgical History Head Surgeries/Procedures: Reports: None HEENT Surgical History: Reports: Oral surgery, Other (see below) Other HEENT Surgeries/Procedures: wisdom tooth taken out. Cardiovascular Surgical History: Reports: None Respiratory Surgical History: Reports: None GI Surgical History: Reports: None Male Surgical History: Reports: Vasectomy Endocrine Surgical History: Reports: None Neurological Surgical History: Reports: None Musculoskeletal Surgical History: Reports: Arthroscopic knee, Other (see below) Other Musculoskeletal Surgeries/Procedures:: Knee surgery two months ago Oncologic Surgical History: Reports: None Social & Family History - Family History Family Medical History: Noncontributory HEENT: Reports: None Cardiac: Reports: Heart failure Respiratory: Reports: Asthma GI: Reports: None : Reports: None OBGYN: Reports: None Musculoskeletal: Reports: None Neurological: Reports: None Psychiatric: Reports: Anxiety Endocrine/Metabolic: Reports: Diabetes, type II Hematologic: Reports: None Immunologic: Reports: None Dermatologic: Reports: None Oncologic: Reports: Colon - Tobacco Use Tobacco Use Within Last Twelve Months: Smokeless Tobacco Years of Tobacco use: 25 Packs/Tins Daily: 0.5 Used Tobacco, but Quit: No Tobacco Use Comment: chew tobacco for 25 years Second Hand Smoke Exposure: No - Caffeine Use Caffeine Use: Reports: None - Alcohol Use Days Per Week of Alcohol Use: 7 Number of Drinks Per Day: 9 Total Drinks Per Week: 63 - Recreational Drug Use Recreational Drug Use: No Drug Use in Last 12 Months: Yes Recreational Drug Type: Reports: Marijuana/Hashish Other Recreational Drug Type: smoke pot Recreational Drug Use Frequency: Weekly Recreational Drug Last Use: 06/18/16 - Living Situation & Occupation Living situation: Reports: with significant other (Girlfriend Maggy) Occupation: unemployed H&P Review of Systems - Review of Systems: Review Of Systems: See Below General: Denies: Fever Pulmonary: Denies: Shortness of Breath, Wheezing, Cough, Sputum Cardiovascular: Denies: Chest Pain Gastrointestinal: Reports: Abdominal Pain, Hematemesis (scant blood in emesis earlier today). Denies: Black Stool, Bloody Stool Genitourinary: Denies: Dysuria, Frequency, Hematuria Psychiatric: Denies: Confusion Exam - Exam Exam: See Below - Vital Signs Vital Signs: Last Vital Signs Temp 97.9 F 12/26/16 19:07 Pulse 91 12/26/16 21:26 Resp 17 12/26/16 21:26 BP 158/94 H 12/26/16 21:26 Pulse Ox 95 12/26/16 21:26 Weight: 84.36 kg - Exam General: Alert, Oriented, Cooperative HEENT: EOMI Lungs: Clear to Auscultation, Normal Respiratory Effort Cardiovascular: Regular Rate, Regular Rhythm Abdomen: Soft, Tenderness (moderate diffuse upper abdominal tenderness). No: Distention Extremities: No: Edema Neurological: Cranial Nerves Intact, Normal Speech Neuro Extensive - Mental Status: Normal Mood/Affect Neuro Extensive - Motor, Sensory, Reflexes: No: Facial palsy (L), Facial Palsy ( R) Psychiatric: Alert, Normal Affect. No: Agitated, Hallucinations, Withdrawal Symptoms - Patient Data Lab Results last 24 hrs: Laboratory Results - last 24 hr 12/26/16 12/26/16 12/26/16 Range/Units 19:45 19:49 19:49 WBC 9.92 (4.0-11.0) K/uL RBC 4.81 (4.50-5.90) M/uL Hgb 15.1 (13.0-17.0) g/dL Hct 43.0 (38.0-50.0) % MCV 89.4 (80.0-98.0) fL MCH 31.4 (27.0-32.0) pg MCHC 35.1 (31.0-37.0) g/dL RDW Std Deviation 38.5 (28.0-62.0) fl RDW Coeff of Conrad 12 (11.0-15.0) % Plt Count 184 (150-400) K/uL MPV 10.50 (7.40-12.00) fL Neut % (Auto) 71.3 (48.0-80.0) % Lymph % (Auto) 21.7 (16.0-40.0) % [place] % (Auto) 5.5 (0.0-15.0) % Eos % (Auto) 1.1 (0.0-7.0) % Baso % (Auto) 0.4 (0.0-1.5) % Neut # (Auto) 7.1 H (1.4-5.7) K/uL Lymph # (Auto) 2.2 (0.6-2.4) K/uL [place] # (Auto) 0.6 (0.0-0.8) K/uL Eos # (Auto) 0.1 (0.0-0.7) K/uL Baso # (Auto) 0.0 (0.0-0.1) K/uL Nucleated RBC % 0.0 /100WBC Nucleated RBCs # 0 K/uL INR 0.98 (0.86-1.11) Sodium (136-146) mmol/L Potassium (3.5-5.1) mmol/L Chloride (98-110) mmol/L Carbon Dioxide (21-31) mmol/L BUN (6.0-23.0) mg/dL Creatinine (0.6-1.5) mg/dL Est Cr Clr Drug Dosing mL/min Estimated GFR (MDRD) ml/min Glucose (60-110) mg/dL Calcium (8.8-10.8) mg/dL Magnesium (1.5-2.3) mEq/L Total Bilirubin (0.1-1.5) mg/dL AST (5-40) IU/L ALT (8-54) IU/L Alkaline Phosphatase (40-150) Total Protein (6.0-8.0) g/dL Albumin (3.5-5.0) g/dL Globulin (2.0-3.5) g/dL Albumin/Globulin Ratio (1.3-2.8) Amylase (10-90) U/L Lipase (7-80) U/L Urine Color YELLOW Urine Appearance CLEAR Urine pH 7.0 (5.0-8.0) Ur Specific [place] 1.015 (1.001-1.035) Urine Protein NEGATIVE (NEGATIVE) mg/dL Urine Glucose (UA) NEGATIVE (NEGATIVE) mg/dL Urine Ketones 40 H (NEGATIVE) mg/dL Urine Occult Blood NEGATIVE (NEGATIVE) Urine Nitrite NEGATIVE (NEGATIVE) Urine Bilirubin NEGATIVE (NEGATIVE) Urine Urobilinogen 0.2 (<2.0) EU/dL Ur Leukocyte Esterase NEGATIVE (NEGATIVE) Urine RBC NONE SEEN (0-2/HPF) Urine WBC 0-2 (0-5/HPF) Ur Epithelial Cells RARE (NONE-FEW) Urine Bacteria RARE (NEGATIVE) Ethyl Alcohol mg/dL 12/26/16 Range/Units 19:49 WBC (4.0-11.0) K/uL RBC (4.50-5.90) M/uL Hgb (13.0-17.0) g/dL Hct (38.0-50.0) % MCV (80.0-98.0) fL MCH (27.0-32.0) pg MCHC (31.0-37.0) g/dL RDW Std Deviation (28.0-62.0) fl RDW Coeff of Conrad (11.0-15.0) % Plt Count (150-400) K/uL MPV (7.40-12.00) fL Neut % (Auto) (48.0-80.0) % Lymph % (Auto) (16.0-40.0) % [place] % (Auto) (0.0-15.0) % Eos % (Auto) (0.0-7.0) % Baso % (Auto) (0.0-1.5) % Neut # (Auto) (1.4-5.7) K/uL Lymph # (Auto) (0.6-2.4) K/uL [place] # (Auto) (0.0-0.8) K/uL Eos # (Auto) (0.0-0.7) K/uL Baso # (Auto) (0.0-0.1) K/uL Nucleated RBC % /100WBC Nucleated RBCs # K/uL INR (0.86-1.11) Sodium 140 (136-146) mmol/L Potassium 3.6 (3.5-5.1) mmol/L Chloride 101 (98-110) mmol/L Carbon Dioxide 22 (21-31) mmol/L BUN 13 (6.0-23.0) mg/dL Creatinine 0.7 (0.6-1.5) mg/dL Est Cr Clr Drug Dosing 163.10 mL/min Estimated GFR (MDRD) > 60.0 ml/min Glucose 122 H (60-110) mg/dL Calcium 8.6 L (8.8-10.8) mg/dL Magnesium 1.4 L (1.5-2.3) mEq/L Total Bilirubin 0.6 (0.1-1.5) mg/dL AST 45 H (5-40) IU/L ALT 45 (8-54) IU/L Alkaline Phosphatase 53 (40-150) Total Protein 7.3 (6.0-8.0) g/dL Albumin 4.4 (3.5-5.0) g/dL Globulin 2.9 (2.0-3.5) g/dL Albumin/Globulin Ratio 1.5 (1.3-2.8) Amylase 99 H (10-90) U/L Lipase 103 H (7-80) U/L Urine Color Urine Appearance Urine pH (5.0-8.0) Ur Specific [place] (1.001-1.035) Urine Protein (NEGATIVE) mg/dL Urine Glucose (UA) (NEGATIVE) mg/dL Urine Ketones (NEGATIVE) mg/dL Urine Occult Blood (NEGATIVE) Urine Nitrite (NEGATIVE) Urine Bilirubin (NEGATIVE) Urine Urobilinogen (<2.0) EU/dL Ur Leukocyte Esterase (NEGATIVE) Urine RBC (0-2/HPF) Urine WBC (0-5/HPF) Ur Epithelial Cells (NONE-FEW) Urine Bacteria (NEGATIVE) Ethyl Alcohol 182.1 mg/dL Result Diagrams: 12/26/16 19:49 12/26/16 19:49 *Q Meaningful Use (ADM) - VTE *Q VTE Criteria *Q: - Stroke *Q Stroke Criteria *Q: - AMI *Q AMI Criteria *Q: - Problem List (1) Acute recurrent pancreatitis SNOMED Code(s): 908344205 ICD Code: K85.9 - ACUTE PANCREATITIS, UNSPECIFIED * DO NOT USE * Status: Acute Current Visit: No Problem List Initiated/Reviewed/Updated: Yes Orders Last 24hrs: Active Orders 24 hr Category Date Time Status Patient Status [ADT] Stat ADT 12/26/16 21:46 Active Antiembolic Devices [RC] PER UNIT ROUTINE Care 12/26/16 21:52 Ordered Oxygen Therapy [RC] PRN Care 12/26/16 21:51 Ordered Telemetry Monitoring [Cardiac Monitoring] [RC] . Care 12/26/16 21:58 Ordered DIRECTED VTE/DVT Education [RC] PER UNIT ROUTINE Care 12/26/16 21:51 Ordered Vital Signs [RC] Q4H Care 12/26/16 21:51 Ordered Clear Liquid Diet [DIET] Diet 12/26/16 Breakfast Ordered Abdomen Pelvis w Cont [CT] Stat Exams 12/26/16 19:30 Taken CBC WITH AUTO DIFF [HEME] AM Lab 12/27/16 05:11 Ordered CBC WITH AUTO DIFF [HEME] AM Lab 12/28/16 05:11 Ordered CBC WITH AUTO DIFF [HEME] AM Lab 12/29/16 05:11 Ordered COMPREHENSIVE METABOLIC PN,CMP [CHEM] AM Lab 12/27/16 05:11 Ordered COMPREHENSIVE METABOLIC PN,CMP [CHEM] AM Lab 12/28/16 05:11 Ordered COMPREHENSIVE METABOLIC PN,CMP [CHEM] AM Lab 12/29/16 05:11 Ordered MAGNESIUM [CHEM] AM Lab 12/27/16 05:11 Ordered MAGNESIUM [CHEM] AM Lab 12/28/16 05:11 Ordered MAGNESIUM [CHEM] AM Lab 12/29/16 05:11 Ordered HYDROmorphone [Dilaudid] Med 12/26/16 21:51 Ordered 1 mg IVPUSH Q2H PRN LORazepam [Ativan] Med 12/26/16 21:51 Ordered 1 mg IM Q4H PRN LORazepam [Ativan] Med 12/26/16 22:00 Ordered 1 mg IM Q6H MVI, Adult with Vitamin K [Infuvite Adult] 10 ml Med 12/28/16 21:00 Ordered Thiamine [Vitamin B-1] 100 mg Folic Acid 1 mg Sodium Chloride 0.9% [Normal Saline] 1,000 ml IV DAILY MVI, Adult with Vitamin K [Infuvite Adult] 10 ml Med 12/26/16 21:38 Active Thiamine [Vitamin B-1] 100 mg Folic Acid 1 mg Magnesium Sulfate [Magnesium Sulfate 50%] 1 gm Sodium Chloride 0.9% [Normal Saline] 1,000 ml IV ONETIME Ondansetron [Zofran] Med 12/26/16 21:51 Ordered 4 mg IVPUSH Q4H PRN Pantoprazole [ProTONIX IV] Med 12/27/16 09:00 Ordered 40 mg IV Q12HR Pregabalin Med 12/27/16 09:00 Ordered 150 mg PO BID Sodium Chloride 0.9% @ 125 MLS/HR (1000ml) Med 12/26/16 22:00 Ordered Sodium Chloride 0.9% [Normal Saline] 1,000 ml IV ASDIRECTED Sodium Chloride 0.9% [Saline Flush] Med 12/26/16 19:30 Active 10 ml FLUSH ASDIRECTED PRN Sodium Chloride 0.9% [Saline Flush] Med 12/26/16 19:30 Active 2.5 ml FLUSH ASDIRECTED PRN Temazepam [Restoril] Med 12/26/16 21:51 Ordered 15 mg PO BEDTIME PRN Venlafaxine Med 12/27/16 09:00 Ordered 75 mg PO BID amLODIPine [Norvasc] Med 12/27/16 09:00 Ordered 10 mg PO DAILY cloNIDine [Catapres] Med 12/26/16 21:55 Ordered 0.2 mg PO BID PRN Saline Lock Insert [OM.PC] Stat Oth 12/26/16 19:29 Ordered Sequential Compression Device [OM.PC] Per Unit Routine Oth 12/26/16 21:52 Ordered Resuscitation Status Routine Resus Stat 12/26/16 21:51 Ordered Medication Orders Multivitamins/Minerals 10 ml/Thiamine HCl 100 mg/ Folic Acid 1 mg/ Magnesium Sulfate 1 gm/ Sodium Chloride 1,013.2 mls @ 150 mls/hr IV ONETIME ONE Stop: 12/27/16 04:23 Sodium Chloride (Saline Flush) 10 ml FLUSH ASDIRECTED PRN PRN Reason: Keep Vein Open Last Admin: 12/26/16 21:56 Dose: 10 ml Admin: 12/26/16 20:00 Dose: 10 ml Admin: 12/26/16 19:56 Dose: 10 ml Sodium Chloride (Saline Flush) 2.5 ml FLUSH ASDIRECTED PRN PRN Reason: Keep Vein Open Last Admin: 12/26/16 19:59 Dose: 2.5 ml Assessment/Plan Comment:: see orders Puneet silver MD
[2016-12-26] MEDS ORDERED: Magnesium Sulfate (4.06 MEQ/ML) 1 GM/2 ML SDV IV ONE ×2 (22:27→23:15)
[2016-12-26] MEDS ORDERED: MVI, Adult with Vitamin K 10 ML, Thiamine 100 MG, Folic Acid 1 MG in Sodium Chloride 0.... IV ONE ×8 (22:27→22:30)
[2016-12-26] MEDS ORDERED: Magnesium Sulfate/Water 2 GM in Premix Bag 1 BAG IV ONE (23:19)
[2016-12-26] MEDS: LORazepam 2 MG/ML MDV IVPUSH SCH (23:29)
[2016-12-27] MEDS: HYDROmorphone 2 MG/ML Syringe IVPUSH PRN ×7 (00:36→23:01)
[2016-12-27] MEDS ORDERED: LORazepam 2 MG/ML MDV IVPUSH PRN (01:25)
[2016-12-27] MEDS: LORazepam 2 MG/ML MDV IVPUSH SCH ×4 (05:37→23:32)
[2016-12-27 06:12] LABS: CHLORIDE,CL 97 mmol/L (98-110); SODIUM,NA 133 mmol/L (136-146)
[2016-12-27] MEDS: Sodium Chloride 0.9% 1,000 ML IV SCH ×3 (06:51→22:53)
[2016-12-27] MEDS ORDERED: Magnesium Sulfate/Water 2 GM in Premix Bag 1 BAG IV ONE (08:35)
[2016-12-27] MEDS: Venlafaxine 37.5 MG Tab PO SCH ×2 (08:43→20:53)
[2016-12-27] MEDS: Pregabalin 75 MG Cap PO SCH ×2 (08:43→20:53)
[2016-12-27] MEDS: amLODIPine 5 MG Tab PO SCH (08:44)
[2016-12-27] MEDS: Pantoprazole 40 MG in Sodium Chloride 0.9% 10 ML IV SCH ×2 (08:45→20:34)
[2016-12-27] MEDS ORDERED: MVI, Adult with Vitamin K 10 ML, Thiamine 100 MG, Folic Acid 1 MG in Sodium Chloride 0.... IV ONE ×4 (09:00)
[2016-12-27] MEDS ORDERED: Pantoprazole 40 MG Vial IVPUSH SCH (09:00)
[2016-12-27] MEDS: HYDROmorphone 1 MG/ML Syringe IVPUSH PRN ×6 (11:06→19:06)
--- NOTE | 2016-12-27 11:37 | PCM.PN ---
- General Info Date of Service: 12/27/16 Subjective Update: he is feeling improved. He is still not hungry. no hallucinations noted. - Patient Data Vitals - most recent: Last Vital Signs Temp 97.9 F 12/27/16 11:14 Pulse 88 12/26/16 22:26 Resp 20 12/27/16 11:14 BP 159/107 H 12/27/16 11:14 Pulse Ox 93 L 12/27/16 11:14 Weight - most recent: 87.8 kg I&O - last 24 hours: Intake & Output 12/26/16 12/27/16 12/27/16 22:59 06:59 14:59 Intake Total 1300 300 Output Total 1590 1100 Balance -290 -800 Lab Results last 24 hrs: Laboratory Results - last 24 hr 12/27/16 12/27/16 Range/Units 05:25 05:25 WBC 7.09 (4.0-11.0) K/uL RBC 4.62 (4.50-5.90) M/uL Hgb 14.1 (13.0-17.0) g/dL Hct 41.0 (38.0-50.0) % MCV 88.7 (80.0-98.0) fL MCH 30.5 (27.0-32.0) pg MCHC 34.4 (31.0-37.0) g/dL RDW Std Deviation 37.8 (28.0-62.0) fl RDW Coeff of Conrad 12 (11.0-15.0) % Plt Count 172 (150-400) K/uL MPV 10.30 (7.40-12.00) fL Neut % (Auto) 70.4 (48.0-80.0) % Lymph % (Auto) 21.0 (16.0-40.0) % [place] % (Auto) 7.5 (0.0-15.0) % Eos % (Auto) 0.8 (0.0-7.0) % Baso % (Auto) 0.3 (0.0-1.5) % Neut # (Auto) 5.0 (1.4-5.7) K/uL Lymph # (Auto) 1.5 (0.6-2.4) K/uL [place] # (Auto) 0.5 (0.0-0.8) K/uL Eos # (Auto) 0.1 (0.0-0.7) K/uL Baso # (Auto) 0.0 (0.0-0.1) K/uL Nucleated RBC % 0.0 /100WBC Nucleated RBCs # 0 K/uL Sodium 133 L (136-146) mmol/L Potassium 3.7 (3.5-5.1) mmol/L Chloride 97 L (98-110) mmol/L Carbon Dioxide 22 (21-31) mmol/L BUN 9 (6.0-23.0) mg/dL Creatinine 0.7 (0.6-1.5) mg/dL Est Cr Clr Drug Dosing 163.10 mL/min Estimated GFR (MDRD) > 60.0 ml/min Glucose 108 (60-110) mg/dL Calcium 7.9 L (8.8-10.8) mg/dL Magnesium 1.4 L (1.5-2.3) mEq/L Total Bilirubin 0.8 (0.1-1.5) mg/dL AST 35 (5-40) IU/L ALT 39 (8-54) IU/L Alkaline Phosphatase 52 (40-150) Total Protein 6.9 (6.0-8.0) g/dL Albumin 4.2 (3.5-5.0) g/dL Globulin 2.7 (2.0-3.5) g/dL Albumin/Globulin Ratio 1.6 (1.3-2.8) Med Orders - Current: Current Medications Amlodipine Besylate (Norvasc) 10 mg PO DAILY [facility] Last Admin: 12/27/16 08:44 Dose: 10 mg Clonidine HCl (Catapres) 0.2 mg PO BID PRN PRN Reason: Hypertension Hydromorphone HCl (Dilaudid) 1 mg IVPUSH Q2H PRN PRN Reason: Pain (severe 7-10) Last Admin: 12/27/16 11:06 Dose: 1 mg Sodium Chloride (Normal Saline) 1,000 mls @ 125 mls/hr IV ASDIRECTED [facility] Last Admin: 12/27/16 06:51 Dose: 125 mls/hr Pantoprazole Sodium 40 mg/ (Sodium Chloride) 10 mls @ 300 mls/hr IV Q12H [facility] Last Admin: 12/27/16 08:45 Dose: 300 mls/hr Lorazepam (Ativan) 1 mg IVPUSH Q6H [facility] Last Admin: 12/27/16 11:07 Dose: 1 mg Lorazepam (Ativan) 0 mg IVPUSH Q4H PRN; Protocol PRN Reason: anxiety/withdrawal Ondansetron HCl (Zofran) 4 mg IVPUSH Q4H PRN PRN Reason: Nausea Pregabalin (Lyrica) 150 mg PO BID [facility] Last Admin: 12/27/16 08:43 Dose: 150 mg Sodium Chloride (Saline Flush) 10 ml FLUSH ASDIRECTED PRN PRN Reason: Keep Vein Open Last Admin: 12/26/16 21:56 Dose: 10 ml Sodium Chloride (Saline Flush) 2.5 ml FLUSH ASDIRECTED PRN PRN Reason: Keep Vein Open Last Admin: 12/26/16 19:59 Dose: 2.5 ml Temazepam (Restoril) 15 mg PO BEDTIME PRN PRN Reason: Sleep Venlafaxine HCl (Effexor) 75 mg PO BID [facility] Last Admin: 12/27/16 08:43 Dose: 75 mg Discontinued Medications Hydromorphone HCl (Dilaudid) 1 mg IVPUSH ONETIME ONE Stop: 12/26/16 19:31 Last Admin: 12/26/16 19:59 Dose: 1 mg Hydromorphone HCl (Dilaudid) 1 mg IVPUSH ONETIME ONE Stop: 12/26/16 21:44 Last Admin: 12/26/16 21:57 Dose: 1 mg Hydromorphone HCl (Dilaudid) 1 mg IVPUSH Q2H PRN PRN Reason: Pain (severe 7-10) Last Admin: 12/27/16 09:06 Dose: 1 mg Sodium Chloride (Normal Saline) 1,000 mls @ 999 mls/hr IV STAT ONE Stop: 12/26/16 20:30 Last Admin: 12/26/16 19:55 Dose: 999 mls/hr Multivitamins/Minerals 10 ml/Thiamine HCl 100 mg/ Folic Acid 1 mg/ Magnesium Sulfate 1 gm/ Sodium Chloride 1,013.2 mls @ 150 mls/hr IV ONETIME ONE Stop: 12/27/16 04:23 Last Admin: 12/26/16 22:49 Dose: Not Given Multivitamins/Minerals 10 ml/Thiamine HCl 100 mg/ Folic Acid 1 mg/ Sodium Chloride 1,011.2 mls @ 125 mls/hr IV DAILY ONE Stop: 12/27/16 17:05 Multivitamins/Minerals 10 ml/Thiamine HCl 100 mg/ Folic Acid 1 mg/ Sodium Chloride 1,011.2 mls @ 125 mls/hr IV DAILY ONE Stop: 12/27/16 06:35 Last Admin: 12/26/16 22:43 Dose: 125 mls/hr Multivitamins/Minerals 10 ml/Thiamine HCl 100 mg/ Folic Acid 1 mg/ Sodium Chloride 1,011.2 mls @ 150 mls/hr IV ONETIME ONE Stop: 12/27/16 05:11 Last Admin: 12/26/16 23:04 Dose: Not Given Magnesium Sulfate 2 gm/ Premix 50 mls @ 50 mls/hr IV ONETIME ONE Stop: 12/27/16 00:18 Last Admin: 12/26/16 23:31 Dose: 50 mls/hr Magnesium Sulfate 2 gm/ Premix 50 mls @ 25 mls/hr IV ONETIME ONE Stop: 12/27/16 10:34 Last Admin: 12/27/16 08:44 Dose: 25 mls/hr Iopamidol (Isovue Multipack-370 (76%)) 100 ml IVPUSH ONETIME STA Stop: 12/26/16 20:52 Last Admin: 12/26/16 20:51 Dose: 100 ml Lorazepam (Ativan) 1 mg IVPUSH ONETIME ONE Stop: 12/26/16 21:44 Last Admin: 12/26/16 21:56 Dose: 1 mg Lorazepam (Ativan) 1 mg IM Q6H [facility] Last Admin: 12/26/16 23:41 Dose: Not Given Lorazepam (Ativan) 1 mg IM Q4H PRN PRN Reason: Anxiety Magnesium Sulfate (Magnesium Sulfate 50%) 1 gm IV ONETIME ONE Stop: 12/26/16 22:28 Last Admin: 12/26/16 23:42 Dose: Not Given Magnesium Sulfate (Magnesium Sulfate 50%) 1 gm IV ONETIME ONE Stop: 12/26/16 23:16 Last Admin: 12/26/16 23:42 Dose: Not Given Ondansetron HCl (Zofran) 4 mg IVPUSH ONETIME ONE Stop: 12/26/16 19:31 Last Admin: 12/26/16 19:59 Dose: 4 mg Pantoprazole Sodium (Protonix Iv) 80 mg IVPUSH .BOLUS ONE Stop: 12/26/16 19:31 Last Admin: 12/26/16 20:00 Dose: 80 mg Pantoprazole Sodium (Protonix Iv) 40 mg IVPUSH Q12HR PAU - Exam General: alert, oriented, cooperative Neck: supple, trachea midline Lungs: Clear to auscultation, Normal respiratory effort Cardiovascular: Regular Rate, Regular Rhythm Abdomen: soft, tenderness (still slightly tender diffusely over the upper abdomen but much improved compared to yesterday.) - Problem List & Annotations (1) Acute recurrent pancreatitis SNOMED Code(s): 646736509 Code(s): K85.9 - ACUTE PANCREATITIS, UNSPECIFIED * DO NOT USE * Status: Acute Current Visit: No (2) Alcoholism SNOMED Code(s): 8035718 Code(s): F10.20 - ALCOHOL DEPENDENCE, UNCOMPLICATED Status: Acute Current Visit: Yes - Problem List Review Problem List Initiated/Reviewed/Updated: Yes - My Orders Last 24 Hours: My Active Orders 12/26/16 21:51 Oxygen Therapy [RC] PRN Vital Signs [RC] Q4H Ondansetron [Zofran] 4 mg IVPUSH Q4H PRN Temazepam [Restoril] 15 mg PO BEDTIME PRN Resuscitation Status Routine 12/26/16 21:52 Antiembolic Devices [RC] PER UNIT ROUTINE Sequential Compression Device [OM.PC] Per Unit Routine 12/26/16 21:55 cloNIDine [Catapres] 0.2 mg PO BID PRN 12/26/16 21:58 Telemetry Monitoring [Cardiac Monitoring] [RC] Q8H 12/26/16 22:00 Sodium Chloride 0.9% [Normal Saline] 1,000 ml IV ASDIRECTED 12/26/16 23:08 Communication Order [RC] ROUTINE 12/26/16 23:15 LORazepam [Ativan] 1 mg IVPUSH Q6H 12/27/16 01:25 LORazepam [Ativan] See Protocol IVPUSH Q4H PRN 12/27/16 08:58 HYDROmorphone [Dilaudid] 1 mg IVPUSH Q2H PRN 12/27/16 09:00 Pantoprazole [ProTONIX IV] 40 mg Sodium Chloride 0.9% [Normal Saline] 10 ml IV Q12H Pregabalin [Lyrica] 150 mg PO BID Venlafaxine [Effexor] 75 mg PO BID amLODIPine [Norvasc] 10 mg PO DAILY 12/28/16 05:11 CBC WITH AUTO DIFF [HEME] AM COMPREHENSIVE METABOLIC PN,CMP [CHEM] AM MAGNESIUM [CHEM] AM 12/29/16 05:11 CBC WITH AUTO DIFF [HEME] AM COMPREHENSIVE METABOLIC PN,CMP [CHEM] AM MAGNESIUM [CHEM] AM - Plan Plan:: see orders Puneet hurt MD 12/27/2016 continue present care close monitoring anticipated discharge about three days. Puneet Hurt MD
[2016-12-27] MEDS ORDERED: Folic Acid/Vitamin B Complex With C Cap PO SCH (18:15)
[2016-12-27] MEDS: Ondansetron 4 MG/2 ML SDV IVPUSH PRN ×2 (18:55→23:09)
[2016-12-27] MEDS: Folic Acid 1 MG Tab PO SCH (19:05)
[2016-12-27] MEDS: Thiamine 100 MG Tab PO SCH (19:05)
--- NOTE | 2016-12-27 19:46 | CT ---
EXAM DATE: 12/26/16 PATIENT'S AGE: 41 Patient: ERICKA ROGEL Facility: [place], [place] Site . Site : [id number] Study: CT Abdomen/Pelvis W CONT [id number] 8:49:02 PM Ordering Physician: Amber Harris Final Report: INDICATION: ABDOMINAL PAIN STARTING YESTERDAY. HX OF PANCREATITIS. PT STATES ALCOHOL DEPENDANT. COMPARISON: CT scans of the abdomen and pelvis dated 23 October 2016 and 29 October 2015. TECHNIQUE: CT scan of the abdomen and pelvis with 100 cc of Isovue-370 given intravenously. FINDINGS: The lung bases are unremarkable. Diffuse fatty infiltration of the liver. No focal abnormalities identified in the visualized portions of the liver, spleen, adrenal glands, and kidneys. No hydronephrosis. No obstructing uroliths. Edema around the head and body of the pancreas which is unchanged. Atrophy of the tail of the pancreas. The GI tract is incompletely distended but shows no gross abnormalities. The stomach and GE junction are not well assessed. Normal appendix. No retroperitoneal, pelvic sidewall, or mesenteric adenopathy. Small splenic vein. Collateral vessels in the upper abdomen. No portal vein thrombus. IMPRESSION: 1. Mild edema around the head and body of the pancreas representing an acute pancreatitis. 2. Diffuse fatty infiltration of the liver. Dictated by Armando Stockton MD @ 12/26/2016 9:01:38 PM Dictated by: Armando Stockton MD @ 12/26/2016 21:01:47 (Electronic Signature) Report Signed by Proxy. [facility]ALScooby
[2016-12-27] MEDS ORDERED: HYDROmorphone 1 MG/ML Syringe IVPUSH PRN (21:00)
[2016-12-27] MEDS: cloNIDine 0.1 MG Tab PO PRN (23:07)
[2016-12-28] MEDS: HYDROmorphone 2 MG/ML Syringe IVPUSH PRN ×11 (01:04→23:03)
[2016-12-28] MEDS: Ondansetron 4 MG/2 ML SDV IVPUSH PRN ×3 (05:11→22:25)
[2016-12-28] MEDS: cloNIDine 0.1 MG Tab PO PRN (05:15)
[2016-12-28] MEDS: LORazepam 2 MG/ML MDV IVPUSH SCH ×4 (05:32→23:03)
[2016-12-28 05:51] LABS: CHLORIDE,CL 98 mmol/L (98-110); SODIUM,NA 130 mmol/L (136-146)
[2016-12-28] MEDS: Sodium Chloride 0.9% 1,000 ML IV SCH ×2 (06:54→16:41)
[2016-12-28] MEDS ORDERED: Magnesium Sulfate/Water 4 GM in Premix Bag 1 BAG IV ONE (08:25)
[2016-12-28] MEDS: Pantoprazole 40 MG in Sodium Chloride 0.9% 10 ML IV SCH ×2 (08:42→20:52)
[2016-12-28] MEDS: Thiamine 100 MG Tab PO SCH (08:43)
[2016-12-28] MEDS: Pregabalin 75 MG Cap PO SCH ×2 (08:43→20:52)
[2016-12-28] MEDS: amLODIPine 5 MG Tab PO SCH (08:43)
[2016-12-28] MEDS: Folic Acid 1 MG Tab PO SCH (08:43)
[2016-12-28] MEDS: Venlafaxine 37.5 MG Tab PO SCH ×2 (08:43→20:52)
[2016-12-28] MEDS ORDERED: Thiamine 100 MG in Sodium Chloride 0.9% 100 ML IV ONE (12:39)
--- NOTE | 2016-12-28 12:46 | PCM.PN ---
- General Info Date of Service: 12/28/16 Subjective Update: he believes that he is gradually improving. he is tolerating a little water and jello. - Patient Data Vitals - most recent: Last Vital Signs Temp 98.5 F 12/28/16 07:17 Pulse 92 12/28/16 07:17 Resp 18 12/28/16 07:17 BP 158/104 H 12/28/16 08:43 Pulse Ox 94 L 12/28/16 07:17 Weight - most recent: 87.8 kg I&O - last 24 hours: Intake & Output 12/27/16 12/28/16 12/28/16 22:59 06:59 14:59 Intake Total 2310 1650 110 Output Total 1350 1800 Balance 960 -150 110 Lab Results last 24 hrs: Laboratory Results - last 24 hr 12/28/16 12/28/16 Range/Units 04:50 04:50 WBC 12.61 H (4.0-11.0) K/uL RBC 5.26 (4.50-5.90) M/uL Hgb 16.7 (13.0-17.0) g/dL Hct 46.2 (38.0-50.0) % MCV 87.8 (80.0-98.0) fL MCH 31.7 (27.0-32.0) pg MCHC 36.1 (31.0-37.0) g/dL RDW Std Deviation 37.5 (28.0-62.0) fl RDW Coeff of Conrad 12 (11.0-15.0) % Plt Count 185 (150-400) K/uL MPV 10.50 (7.40-12.00) fL Neut % (Auto) 83.8 H (48.0-80.0) % Lymph % (Auto) 7.8 L (16.0-40.0) % [place] % (Auto) 7.8 (0.0-15.0) % Eos % (Auto) 0.5 (0.0-7.0) % Baso % (Auto) 0.1 (0.0-1.5) % Neut # (Auto) 10.6 H (1.4-5.7) K/uL Lymph # (Auto) 1.0 (0.6-2.4) K/uL [place] # (Auto) 1.0 H (0.0-0.8) K/uL Eos # (Auto) 0.1 (0.0-0.7) K/uL Baso # (Auto) 0.0 (0.0-0.1) K/uL Nucleated RBC % 0.0 /100WBC Nucleated RBCs # 0 K/uL Sodium 130 L (136-146) mmol/L Potassium 5.1 (3.5-5.1) mmol/L Chloride 98 (98-110) mmol/L Carbon Dioxide 15 L (21-31) mmol/L BUN 6 (6.0-23.0) mg/dL Creatinine 0.7 (0.6-1.5) mg/dL Est Cr Clr Drug Dosing 163.10 mL/min Estimated GFR (MDRD) > 60.0 ml/min Glucose 137 H (60-110) mg/dL Calcium 7.8 L (8.8-10.8) mg/dL Magnesium 1.6 (1.5-2.3) mEq/L Total Bilirubin 0.9 (0.1-1.5) mg/dL AST 34 (5-40) IU/L ALT 36 (8-54) IU/L Alkaline Phosphatase 67 (40-150) Total Protein 7.8 (6.0-8.0) g/dL Albumin 4.8 (3.5-5.0) g/dL Globulin 3.0 (2.0-3.5) g/dL Albumin/Globulin Ratio 1.6 (1.3-2.8) Med Orders - Current: Current Medications Amlodipine Besylate (Norvasc) 10 mg PO DAILY [facility] Last Admin: 12/28/16 08:43 Dose: 10 mg Clonidine HCl (Catapres) 0.2 mg PO Q6H PRN PRN Reason: Hypertension Last Admin: 12/28/16 05:15 Dose: 0.2 mg Enalaprilat (Vasotec Iv) 1.25 mg IVPUSH Q6H [facility] Folic Acid (Folic Acid) 1 mg SUBCUT DAILY [facility] Hydromorphone HCl (Dilaudid) 2 mg IVPUSH Q2H PRN PRN Reason: Pain (severe 7-10) Last Admin: 12/28/16 11:36 Dose: 2 mg Sodium Chloride (Normal Saline) 1,000 mls @ 125 mls/hr IV ASDIRECTED [facility] Last Admin: 12/28/16 06:54 Dose: 125 mls/hr Pantoprazole Sodium 40 mg/ (Sodium Chloride) 10 mls @ 300 mls/hr IV Q12H [facility] Last Admin: 12/28/16 08:42 Dose: 300 mls/hr Thiamine HCl 100 mg/ Sodium (Chloride) 101 mls @ 100 mls/hr IV BID ONE Stop: 12/28/16 13:39 Lorazepam (Ativan) 1 mg IVPUSH Q6H [facility] Last Admin: 12/28/16 12:21 Dose: 1 mg Lorazepam (Ativan) 0 mg IVPUSH Q4H PRN; Protocol PRN Reason: anxiety/withdrawal Ondansetron HCl (Zofran) 4 mg IVPUSH Q4H PRN PRN Reason: Nausea Last Admin: 12/28/16 11:30 Dose: 4 mg Pregabalin (Lyrica) 150 mg PO BID [facility] Last Admin: 12/28/16 08:43 Dose: 150 mg Sodium Chloride (Saline Flush) 10 ml FLUSH ASDIRECTED PRN PRN Reason: Keep Vein Open Last Admin: 12/26/16 21:56 Dose: 10 ml Sodium Chloride (Saline Flush) 2.5 ml FLUSH ASDIRECTED PRN PRN Reason: Keep Vein Open Last Admin: 12/26/16 19:59 Dose: 2.5 ml Temazepam (Restoril) 15 mg PO BEDTIME PRN PRN Reason: Sleep Venlafaxine HCl (Effexor) 75 mg PO BID [facility] Last Admin: 12/28/16 08:43 Dose: 75 mg Discontinued Medications Clonidine HCl (Catapres) 0.2 mg PO BID PRN PRN Reason: Hypertension Last Admin: 12/27/16 17:13 Dose: 0.2 mg Folic Acid (Folic Acid) 1 mg PO DAILY [facility] Last Admin: 12/28/16 08:43 Dose: 1 mg Hydromorphone HCl (Dilaudid) 1 mg IVPUSH ONETIME ONE Stop: 12/26/16 19:31 Last Admin: 12/26/16 19:59 Dose: 1 mg Hydromorphone HCl (Dilaudid) 1 mg IVPUSH ONETIME ONE Stop: 12/26/16 21:44 Last Admin: 12/26/16 21:57 Dose: 1 mg Hydromorphone HCl (Dilaudid) 1 mg IVPUSH Q2H PRN PRN Reason: Pain (severe 7-10) Last Admin: 12/27/16 09:06 Dose: 1 mg Hydromorphone HCl (Dilaudid) 1 mg IVPUSH Q2H PRN PRN Reason: Pain (severe 7-10) Last Admin: 12/27/16 19:06 Dose: 1 mg Hydromorphone HCl (Dilaudid) 2 mg IVPUSH Q2H PRN PRN Reason: Pain (severe 7-10) Sodium Chloride (Normal Saline) 1,000 mls @ 999 mls/hr IV STAT ONE Stop: 12/26/16 20:30 Last Admin: 12/26/16 19:55 Dose: 999 mls/hr Multivitamins/Minerals 10 ml/Thiamine HCl 100 mg/ Folic Acid 1 mg/ Magnesium Sulfate 1 gm/ Sodium Chloride 1,013.2 mls @ 150 mls/hr IV ONETIME ONE Stop: 12/27/16 04:23 Last Admin: 12/26/16 22:49 Dose: Not Given Multivitamins/Minerals 10 ml/Thiamine HCl 100 mg/ Folic Acid 1 mg/ Sodium Chloride 1,011.2 mls @ 125 mls/hr IV DAILY ONE Stop: 12/27/16 17:05 Multivitamins/Minerals 10 ml/Thiamine HCl 100 mg/ Folic Acid 1 mg/ Sodium Chloride 1,011.2 mls @ 125 mls/hr IV DAILY ONE Stop: 12/27/16 06:35 Last Admin: 12/26/16 22:43 Dose: 125 mls/hr Multivitamins/Minerals 10 ml/Thiamine HCl 100 mg/ Folic Acid 1 mg/ Sodium Chloride 1,011.2 mls @ 150 mls/hr IV ONETIME ONE Stop: 12/27/16 05:11 Last Admin: 12/26/16 23:04 Dose: Not Given Magnesium Sulfate 2 gm/ Premix 50 mls @ 50 mls/hr IV ONETIME ONE Stop: 12/27/16 00:18 Last Admin: 12/26/16 23:31 Dose: 50 mls/hr Magnesium Sulfate 2 gm/ Premix 50 mls @ 25 mls/hr IV ONETIME ONE Stop: 12/27/16 10:34 Last Admin: 12/27/16 08:44 Dose: 25 mls/hr Magnesium Sulfate 4 gm/ Premix 100 mls @ 50 mls/hr IV ONETIME ONE Stop: 12/28/16 10:24 Last Admin: 12/28/16 08:40 Dose: 50 mls/hr Iopamidol (Isovue Multipack-370 (76%)) 100 ml IVPUSH ONETIME STA Stop: 12/26/16 20:52 Last Admin: 12/26/16 20:51 Dose: 100 ml Lorazepam (Ativan) 1 mg IVPUSH ONETIME ONE Stop: 12/26/16 21:44 Last Admin: 12/26/16 21:56 Dose: 1 mg Lorazepam (Ativan) 1 mg IM Q6H [facility] Last Admin: 12/26/16 23:41 Dose: Not Given Lorazepam (Ativan) 1 mg IM Q4H PRN PRN Reason: Anxiety Magnesium Sulfate (Magnesium Sulfate 50%) 1 gm IV ONETIME ONE Stop: 12/26/16 22:28 Last Admin: 12/26/16 23:42 Dose: Not Given Magnesium Sulfate (Magnesium Sulfate 50%) 1 gm IV ONETIME ONE Stop: 12/26/16 23:16 Last Admin: 12/26/16 23:42 Dose: Not Given Multivit/Ca Carb/B Cmplx/FA/Prenat (Renal Caps Softgel) 1 cap PO DAILY [facility] Last Admin: 12/27/16 18:44 Dose: Not Given Ondansetron HCl (Zofran) 4 mg IVPUSH ONETIME ONE Stop: 12/26/16 19:31 Last Admin: 12/26/16 19:59 Dose: 4 mg Pantoprazole Sodium (Protonix Iv) 80 mg IVPUSH .BOLUS ONE Stop: 12/26/16 19:31 Last Admin: 12/26/16 20:00 Dose: 80 mg Pantoprazole Sodium (Protonix Iv) 40 mg IVPUSH Q12HR [facility] Thiamine HCl (Vitamin B-1) 100 mg PO DAILY [facility] Last Admin: 12/28/16 08:43 Dose: 100 mg - Exam General: alert, oriented, cooperative Lungs: Clear to auscultation, Normal respiratory effort Cardiovascular: Regular Rate, Regular Rhythm Abdomen: soft, no distension, tenderness (diffuse upper abdominal tenderness improving ). No: no tenderness Psy/Mental Status: alert. No: agitated Physical Findings Comments:: ataxic gait faint intermittent hand tremor. - Problem List & Annotations (1) Acute recurrent pancreatitis SNOMED Code(s): 026662416 Code(s): K85.9 - ACUTE PANCREATITIS, UNSPECIFIED * DO NOT USE * Status: Acute Current Visit: No (2) Alcoholism SNOMED Code(s): 0260413 Code(s): F10.20 - ALCOHOL DEPENDENCE, UNCOMPLICATED Status: Acute Current Visit: Yes (3) Fatty liver SNOMED Code(s): 634283561 Code(s): K76.0 - FATTY (CHANGE OF) LIVER, NOT ELSEWHERE CLASSIFIED Status: Acute Current Visit: Yes - Problem List Review Problem List Initiated/Reviewed/Updated: Yes - My Orders Last 24 Hours: My Active Orders 12/27/16 19:14 cloNIDine [Catapres] 0.2 mg PO Q6H PRN 12/27/16 21:00 HYDROmorphone [Dilaudid] 2 mg IVPUSH Q2H PRN 12/28/16 12:39 Thiamine [Vitamin B-1] 100 mg Sodium Chloride 0.9% [Normal Saline] 100 ml IV BID 12/28/16 12:45 Enalaprilat [Vasotec IV] 1.25 mg IVPUSH Q6H Folic Acid 1 mg SUBCUT DAILY 12/29/16 05:11 CBC WITH AUTO DIFF [HEME] AM COMPREHENSIVE METABOLIC PN,CMP [CHEM] AM MAGNESIUM [CHEM] AM - Plan Plan:: see orders Puneet hurt MD 12/27/2016 continue present care close monitoring anticipated discharge about three days. Puneet Hurt MD 12/28/2016 because of concerns about absorption, will change folic acid and thiamine to parenteral. vasotec IV scheduled for HTN close monitoring. Puneet Hurt MD
[2016-12-28] MEDS: Folic Acid 50 MG/10 ML MDV SUBCUT SCH (12:50)
[2016-12-28] MEDS: Enalaprilat 1.25 MG/ML SDV IVPUSH SCH ×2 (12:57→18:43)
[2016-12-28] MEDS: Thiamine 100 MG in Sodium Chloride 0.9% 100 ML IV SCH (20:53)
[2016-12-28] MEDS ORDERED: Thiamine 200 MG/2 ML MDV IV SCH (21:00)
[2016-12-28] MEDS ORDERED: MVI, Adult with Vitamin K 10 ML, Thiamine 100 MG, Folic Acid 1 MG in Sodium Chloride 0.... IV ONE ×4 (21:00)
[2016-12-29] MEDS: Sodium Chloride 0.9% 1,000 ML IV SCH ×3 (01:26→18:46)
[2016-12-29] MEDS: Enalaprilat 1.25 MG/ML SDV IVPUSH SCH ×4 (01:30→17:45)
[2016-12-29] MEDS: HYDROmorphone 2 MG/ML Syringe IVPUSH PRN ×10 (01:37→22:16)
[2016-12-29] MEDS: LORazepam 2 MG/ML MDV IVPUSH SCH ×4 (05:33→23:56)
[2016-12-29 05:43] LABS: CHLORIDE,CL 103 mmol/L (98-110); SODIUM,NA 130 mmol/L (136-146)
[2016-12-29] MEDS: Folic Acid 50 MG/10 ML MDV SUBCUT SCH (09:01)
[2016-12-29] MEDS: Pregabalin 75 MG Cap PO SCH ×2 (09:01→20:09)
[2016-12-29] MEDS: amLODIPine 5 MG Tab PO SCH (09:02)
[2016-12-29] MEDS: Venlafaxine 37.5 MG Tab PO SCH ×2 (09:02→20:09)
[2016-12-29] MEDS: Pantoprazole 40 MG in Sodium Chloride 0.9% 10 ML IV SCH ×2 (10:15→20:13)
[2016-12-29] MEDS: Thiamine 100 MG in Sodium Chloride 0.9% 100 ML IV SCH (11:03)
--- NOTE | 2016-12-29 12:47 | PCM.PN ---
- General Info Date of Service: 12/29/16 - Review of Systems Systems Review Comment:: He still has abdominal pain but he reports that he has adequate control with current medical regimen. he is eating a little jello - Patient Data Vitals - most recent: Last Vital Signs Temp 98.8 F 12/29/16 12:00 Pulse 89 12/29/16 12:00 Resp 20 12/29/16 12:00 BP 128/76 12/29/16 12:00 Pulse Ox 93 L 12/29/16 12:00 Weight - most recent: 87.8 kg I&O - last 24 hours: Intake & Output 12/28/16 12/29/16 12/29/16 22:59 06:59 14:59 Intake Total 1830 2572 1010 Output Total 500 800 Balance 1330 1772 1010 Lab Results last 24 hrs: Laboratory Results - last 24 hr 12/29/16 12/29/16 Range/Units 05:05 05:05 WBC 10.99 (4.0-11.0) K/uL RBC 4.34 L (4.50-5.90) M/uL Hgb 13.7 (13.0-17.0) g/dL Hct 39.1 (38.0-50.0) % MCV 90.1 (80.0-98.0) fL MCH 31.6 (27.0-32.0) pg MCHC 35.0 (31.0-37.0) g/dL RDW Std Deviation 39.8 (28.0-62.0) fl RDW Coeff of Conrad 12 (11.0-15.0) % Plt Count 172 (150-400) K/uL MPV 11.00 (7.40-12.00) fL Neut % (Auto) 80.6 H (48.0-80.0) % Lymph % (Auto) 8.4 L (16.0-40.0) % [place] % (Auto) 9.4 (0.0-15.0) % Eos % (Auto) 1.6 (0.0-7.0) % Baso % (Auto) 0.0 (0.0-1.5) % Neut # (Auto) 8.9 H (1.4-5.7) K/uL Lymph # (Auto) 0.9 (0.6-2.4) K/uL [place] # (Auto) 1.0 H (0.0-0.8) K/uL Eos # (Auto) 0.2 (0.0-0.7) K/uL Baso # (Auto) 0.0 (0.0-0.1) K/uL Nucleated RBC % 0.0 /100WBC Nucleated RBCs # 0 K/uL Sodium 130 L (136-146) mmol/L Potassium 4.5 (3.5-5.1) mmol/L Chloride 103 (98-110) mmol/L Carbon Dioxide 17 L (21-31) mmol/L BUN 9 (6.0-23.0) mg/dL Creatinine 0.7 (0.6-1.5) mg/dL Est Cr Clr Drug Dosing 163.10 mL/min Estimated GFR (MDRD) > 60.0 ml/min Glucose 116 H (60-110) mg/dL Calcium 7.2 L (8.8-10.8) mg/dL Magnesium 1.8 (1.5-2.3) mEq/L Total Bilirubin 0.7 (0.1-1.5) mg/dL AST 23 (5-40) IU/L ALT 25 (8-54) IU/L Alkaline Phosphatase 51 (40-150) Total Protein 6.1 (6.0-8.0) g/dL Albumin 3.8 (3.5-5.0) g/dL Globulin 2.3 (2.0-3.5) g/dL Albumin/Globulin Ratio 1.7 (1.3-2.8) Med Orders - Current: Current Medications Amlodipine Besylate (Norvasc) 10 mg PO DAILY [facility] Last Admin: 12/29/16 09:02 Dose: 10 mg Clonidine HCl (Catapres) 0.2 mg PO Q6H PRN PRN Reason: Hypertension Last Admin: 12/28/16 05:15 Dose: 0.2 mg Enalaprilat (Vasotec Iv) 1.25 mg IVPUSH Q6H [facility] Last Admin: 12/29/16 06:52 Dose: 1.25 mg Folic Acid (Folic Acid) 1 mg SUBCUT DAILY [facility] Last Admin: 12/29/16 09:01 Dose: 1 mg Hydromorphone HCl (Dilaudid) 2 mg IVPUSH Q2H PRN PRN Reason: Pain (severe 7-10) Last Admin: 12/29/16 11:10 Dose: 2 mg Sodium Chloride (Normal Saline) 1,000 mls @ 125 mls/hr IV ASDIRECTED [facility] Last Admin: 12/29/16 09:28 Dose: 125 mls/hr Pantoprazole Sodium 40 mg/ (Sodium Chloride) 10 mls @ 300 mls/hr IV Q12H [facility] Last Admin: 12/29/16 10:15 Dose: 300 mls/hr Thiamine HCl 100 mg/ Sodium (Chloride) 101 mls @ 100 mls/hr IV BID [facility] Last Admin: 12/29/16 11:03 Dose: 100 mls/hr Lorazepam (Ativan) 1 mg IVPUSH Q6H [facility] Last Admin: 12/29/16 11:11 Dose: 1 mg Lorazepam (Ativan) 0 mg IVPUSH Q4H PRN; Protocol PRN Reason: anxiety/withdrawal Ondansetron HCl (Zofran) 4 mg IVPUSH Q4H PRN PRN Reason: Nausea Last Admin: 12/28/16 22:25 Dose: 4 mg Pregabalin (Lyrica) 150 mg PO BID [facility] Last Admin: 12/29/16 09:01 Dose: 150 mg Sodium Chloride (Saline Flush) 10 ml FLUSH ASDIRECTED PRN PRN Reason: Keep Vein Open Last Admin: 12/26/16 21:56 Dose: 10 ml Sodium Chloride (Saline Flush) 2.5 ml FLUSH ASDIRECTED PRN PRN Reason: Keep Vein Open Last Admin: 12/26/16 19:59 Dose: 2.5 ml Temazepam (Restoril) 15 mg PO BEDTIME PRN PRN Reason: Sleep Venlafaxine HCl (Effexor) 75 mg PO BID [facility] Last Admin: 12/29/16 09:02 Dose: 75 mg Discontinued Medications Clonidine HCl (Catapres) 0.2 mg PO BID PRN PRN Reason: Hypertension Last Admin: 12/27/16 17:13 Dose: 0.2 mg Folic Acid (Folic Acid) 1 mg PO DAILY [facility] Last Admin: 12/28/16 08:43 Dose: 1 mg Hydromorphone HCl (Dilaudid) 1 mg IVPUSH ONETIME ONE Stop: 12/26/16 19:31 Last Admin: 12/26/16 19:59 Dose: 1 mg Hydromorphone HCl (Dilaudid) 1 mg IVPUSH ONETIME ONE Stop: 12/26/16 21:44 Last Admin: 12/26/16 21:57 Dose: 1 mg Hydromorphone HCl (Dilaudid) 1 mg IVPUSH Q2H PRN PRN Reason: Pain (severe 7-10) Last Admin: 12/27/16 09:06 Dose: 1 mg Hydromorphone HCl (Dilaudid) 1 mg IVPUSH Q2H PRN PRN Reason: Pain (severe 7-10) Last Admin: 12/27/16 19:06 Dose: 1 mg Hydromorphone HCl (Dilaudid) 2 mg IVPUSH Q2H PRN PRN Reason: Pain (severe 7-10) Sodium Chloride (Normal Saline) 1,000 mls @ 999 mls/hr IV STAT ONE Stop: 12/26/16 20:30 Last Admin: 12/26/16 19:55 Dose: 999 mls/hr Multivitamins/Minerals 10 ml/Thiamine HCl 100 mg/ Folic Acid 1 mg/ Magnesium Sulfate 1 gm/ Sodium Chloride 1,013.2 mls @ 150 mls/hr IV ONETIME ONE Stop: 12/27/16 04:23 Last Admin: 12/26/16 22:49 Dose: Not Given Multivitamins/Minerals 10 ml/Thiamine HCl 100 mg/ Folic Acid 1 mg/ Sodium Chloride 1,011.2 mls @ 125 mls/hr IV DAILY ONE Stop: 12/27/16 17:05 Multivitamins/Minerals 10 ml/Thiamine HCl 100 mg/ Folic Acid 1 mg/ Sodium Chloride 1,011.2 mls @ 125 mls/hr IV DAILY ONE Stop: 12/27/16 06:35 Last Admin: 12/26/16 22:43 Dose: 125 mls/hr Multivitamins/Minerals 10 ml/Thiamine HCl 100 mg/ Folic Acid 1 mg/ Sodium Chloride 1,011.2 mls @ 150 mls/hr IV ONETIME ONE Stop: 12/27/16 05:11 Last Admin: 12/26/16 23:04 Dose: Not Given Magnesium Sulfate 2 gm/ Premix 50 mls @ 50 mls/hr IV ONETIME ONE Stop: 12/27/16 00:18 Last Admin: 12/26/16 23:31 Dose: 50 mls/hr Magnesium Sulfate 2 gm/ Premix 50 mls @ 25 mls/hr IV ONETIME ONE Stop: 12/27/16 10:34 Last Admin: 12/27/16 08:44 Dose: 25 mls/hr Magnesium Sulfate 4 gm/ Premix 100 mls @ 50 mls/hr IV ONETIME ONE Stop: 12/28/16 10:24 Last Admin: 12/28/16 08:40 Dose: 50 mls/hr Thiamine HCl 100 mg/ Sodium (Chloride) 101 mls @ 100 mls/hr IV BID ONE Stop: 12/28/16 13:39 Last Admin: 12/28/16 12:57 Dose: 100 mls/hr Iopamidol (Isovue Multipack-370 (76%)) 100 ml IVPUSH ONETIME STA Stop: 12/26/16 20:52 Last Admin: 12/26/16 20:51 Dose: 100 ml Lorazepam (Ativan) 1 mg IVPUSH ONETIME ONE Stop: 12/26/16 21:44 Last Admin: 12/26/16 21:56 Dose: 1 mg Lorazepam (Ativan) 1 mg IM Q6H [facility] Last Admin: 12/26/16 23:41 Dose: Not Given Lorazepam (Ativan) 1 mg IM Q4H PRN PRN Reason: Anxiety Magnesium Sulfate (Magnesium Sulfate 50%) 1 gm IV ONETIME ONE Stop: 12/26/16 22:28 Last Admin: 12/26/16 23:42 Dose: Not Given Magnesium Sulfate (Magnesium Sulfate 50%) 1 gm IV ONETIME ONE Stop: 12/26/16 23:16 Last Admin: 12/26/16 23:42 Dose: Not Given Multivit/Ca Carb/B Cmplx/FA/Prenat (Renal Caps Softgel) 1 cap PO DAILY [facility] Last Admin: 12/27/16 18:44 Dose: Not Given Ondansetron HCl (Zofran) 4 mg IVPUSH ONETIME ONE Stop: 12/26/16 19:31 Last Admin: 12/26/16 19:59 Dose: 4 mg Pantoprazole Sodium (Protonix Iv) 80 mg IVPUSH .BOLUS ONE Stop: 12/26/16 19:31 Last Admin: 12/26/16 20:00 Dose: 80 mg Pantoprazole Sodium (Protonix Iv) 40 mg IVPUSH Q12HR [facility] Thiamine HCl (Vitamin B-1) 100 mg PO DAILY [facility] Last Admin: 12/28/16 08:43 Dose: 100 mg Thiamine HCl (Vitamin B-1) 100 mg IV BID [facility] - Exam General: alert, oriented Neck: supple, trachea midline Lungs: Clear to auscultation, Normal respiratory effort Cardiovascular: Regular Rate, Regular Rhythm. No: Murmurs Abdomen: soft, tenderness, distension (moderate upper abdominal tenderness) - Problem List & Annotations (1) Acute recurrent pancreatitis SNOMED Code(s): 327201050 Code(s): K85.9 - ACUTE PANCREATITIS, UNSPECIFIED * DO NOT USE * Status: Acute Current Visit: No (2) Alcoholism SNOMED Code(s): 7032986 Code(s): F10.20 - ALCOHOL DEPENDENCE, UNCOMPLICATED Status: Acute Current Visit: Yes (3) Fatty liver SNOMED Code(s): 497599817 Code(s): K76.0 - FATTY (CHANGE OF) LIVER, NOT ELSEWHERE CLASSIFIED Status: Acute Current Visit: Yes - Problem List Review Problem List Initiated/Reviewed/Updated: Yes - My Orders Last 24 Hours: My Active Orders 12/28/16 12:45 Enalaprilat [Vasotec IV] 1.25 mg IVPUSH Q6H Folic Acid 1 mg SUBCUT DAILY 12/28/16 21:00 Thiamine [Vitamin B-1] 100 mg Sodium Chloride 0.9% [Normal Saline] 100 ml IV BID - Plan Plan:: see orders Puneet hurt MD 12/27/2016 continue present care close monitoring anticipated discharge about three days. Puneet Hurt MD 12/28/2016 because of concerns about absorption, will change folic acid and thiamine to parenteral. vasotec IV scheduled for HTN close monitoring. Puneet Hurt MD 12/29/2016 prolonged symptoms. I discussed the possibility of TPN if not increasing po intake within 48 hours. Puneet Hurt MD
[2016-12-29] MEDS: Ondansetron 4 MG/2 ML SDV IVPUSH PRN (20:08)
[2016-12-29] MEDS: Thiamine 100 MG Tab PO SCH (20:17)
[2016-12-30] MEDS: HYDROmorphone 2 MG/ML Syringe IVPUSH PRN ×11 (00:34→23:10)
[2016-12-30] MEDS: Enalaprilat 1.25 MG/ML SDV IVPUSH SCH ×4 (00:34→18:34)
[2016-12-30] MEDS: Sodium Chloride 0.9% 1,000 ML IV SCH ×4 (02:45→20:48)
[2016-12-30] MEDS: LORazepam 2 MG/ML MDV IVPUSH SCH ×4 (04:49→23:56)
[2016-12-30 05:49] LABS: CHLORIDE,CL 102 mmol/L (98-110); SODIUM,NA 137 mmol/L (136-146)
[2016-12-30] MEDS: Pantoprazole 40 MG in Sodium Chloride 0.9% 10 ML IV SCH ×2 (08:48→20:49)
[2016-12-30] MEDS: Venlafaxine 37.5 MG Tab PO SCH ×2 (08:51→20:53)
[2016-12-30] MEDS: amLODIPine 5 MG Tab PO SCH (08:51)
[2016-12-30] MEDS: Pregabalin 75 MG Cap PO SCH ×2 (08:51→20:53)
[2016-12-30] MEDS: Folic Acid 1 MG Tab PO SCH (08:51)
[2016-12-30] MEDS: Thiamine 100 MG Tab PO SCH ×2 (08:51→20:53)
--- NOTE | 2016-12-30 09:44 | PCM.PN ---
- General Info Date of Service: 12/30/16 Admission Dx/Problem (Free Text): Admission Diagnosis/Problem Admission Diagnosis/Problem Pancreatitis Subjective Update: Feeling nauseated and having increased pain today after eating [place] diet. Feels like he is being pushed too fast. Denies any chest pain or SOB. Abdominal pain 8 /10, feels bloated and distended. Functional Status: Reports: ambulating, urinating. Denies: pain controlled, tolerating diet - Review of Systems General: Reports: No Symptoms. Denies: Fever HEENT: Reports: no symptoms. Denies: sinus congestion, sore throat Pulmonary: Reports: no symptoms. Denies: shortness of breath, cough, sputum Cardiovascular: Denies: Chest Pain Gastrointestinal: Reports: Abdominal pain, Flatus, Nausea. Denies: Vomiting Genitourinary: Reports: no symptoms. Denies: dysuria, frequency Musculoskeletal: Reports: no symptoms Skin: Reports: no symptoms Neurological: Reports: No Symptoms Psychiatric: Reports: no symptoms - Patient Data Vitals - most recent: Last Vital Signs Temp 97.7 F 12/30/16 08:00 Pulse 89 12/30/16 08:00 Resp 16 12/30/16 08:00 BP 140/81 12/30/16 08:51 Pulse Ox 95 12/30/16 08:00 Weight - most recent: 87.8 kg I&O - last 24 hours: Intake & Output 12/29/16 12/30/16 12/30/16 22:59 06:59 14:59 Intake Total 3773 1850 10 Output Total 2200 3600 Balance 1573 -1750 10 Lab Results last 24 hrs: Laboratory Results - last 24 hr 12/30/16 12/30/16 12/30/16 Range/Units 05:17 05:17 05:17 WBC 7.58 (4.0-11.0) K/uL RBC 4.30 L (4.50-5.90) M/uL Hgb 13.5 (13.0-17.0) g/dL Hct 38.6 (38.0-50.0) % MCV 89.8 (80.0-98.0) fL MCH 31.4 (27.0-32.0) pg MCHC 35.0 (31.0-37.0) g/dL RDW Std Deviation 39.7 (28.0-62.0) fl RDW Coeff of Conrad 12 (11.0-15.0) % Plt Count 146 L (150-400) K/uL MPV 10.40 (7.40-12.00) fL Neut % (Auto) 70.4 (48.0-80.0) % Lymph % (Auto) 16.1 (16.0-40.0) % [place] % (Auto) 10.8 (0.0-15.0) % Eos % (Auto) 2.4 (0.0-7.0) % Baso % (Auto) 0.3 (0.0-1.5) % Neut # (Auto) 5.3 (1.4-5.7) K/uL Lymph # (Auto) 1.2 (0.6-2.4) K/uL [place] # (Auto) 0.8 (0.0-0.8) K/uL Eos # (Auto) 0.2 (0.0-0.7) K/uL Baso # (Auto) 0.0 (0.0-0.1) K/uL Nucleated RBC % 0.0 /100WBC Nucleated RBCs # 0 K/uL Sodium 137 (136-146) mmol/L Potassium 3.8 (3.5-5.1) mmol/L Chloride 102 (98-110) mmol/L Carbon Dioxide 23 (21-31) mmol/L BUN 4 L (6.0-23.0) mg/dL Creatinine 0.7 (0.6-1.5) mg/dL Est Cr Clr Drug Dosing 163.10 mL/min Estimated GFR (MDRD) > 60.0 ml/min Glucose 130 H (60-110) mg/dL Calcium 8.1 L (8.8-10.8) mg/dL Total Bilirubin 0.7 (0.1-1.5) mg/dL AST 26 (5-40) IU/L ALT 24 (8-54) IU/L Alkaline Phosphatase 49 (40-150) Total Protein 6.7 (6.0-8.0) g/dL Albumin 3.9 (3.5-5.0) g/dL Globulin 2.8 (2.0-3.5) g/dL Albumin/Globulin Ratio 1.4 (1.3-2.8) Lipase Cancelled Med Orders - Current: Current Medications Amlodipine Besylate (Norvasc) 10 mg PO DAILY [facility] Last Admin: 12/30/16 08:51 Dose: 10 mg Clonidine HCl (Catapres) 0.2 mg PO Q6H PRN PRN Reason: Hypertension Last Admin: 12/28/16 05:15 Dose: 0.2 mg Enalaprilat (Vasotec Iv) 1.25 mg IVPUSH Q6H [facility] Last Admin: 12/30/16 07:12 Dose: 1.25 mg Folic Acid (Folic Acid) 1 mg PO DAILY [facility] Last Admin: 12/30/16 08:51 Dose: 1 mg Hydromorphone HCl (Dilaudid) 2 mg IVPUSH Q2H PRN PRN Reason: Pain (severe 7-10) Last Admin: 12/30/16 09:14 Dose: 2 mg Pantoprazole Sodium 40 mg/ (Sodium Chloride) 10 mls @ 300 mls/hr IV Q12H [facility] Last Admin: 12/30/16 08:48 Dose: 300 mls/hr Sodium Chloride (Normal Saline) 1,000 mls @ 200 mls/hr IV ASDIRECTED PAU Lorazepam (Ativan) 1 mg IVPUSH Q6H [facility] Last Admin: 12/30/16 04:49 Dose: 1 mg Lorazepam (Ativan) 0 mg IVPUSH Q4H PRN; Protocol PRN Reason: anxiety/withdrawal Ondansetron HCl (Zofran) 4 mg IVPUSH Q4H PRN PRN Reason: Nausea Last Admin: 12/29/16 20:08 Dose: 4 mg Pregabalin (Lyrica) 150 mg PO BID [facility] Last Admin: 12/30/16 08:51 Dose: 150 mg Sodium Chloride (Saline Flush) 10 ml FLUSH ASDIRECTED PRN PRN Reason: Keep Vein Open Last Admin: 12/26/16 21:56 Dose: 10 ml Sodium Chloride (Saline Flush) 2.5 ml FLUSH ASDIRECTED PRN PRN Reason: Keep Vein Open Last Admin: 12/26/16 19:59 Dose: 2.5 ml Temazepam (Restoril) 15 mg PO BEDTIME PRN PRN Reason: Sleep Thiamine HCl (Vitamin B-1) 100 mg PO BID [facility] Last Admin: 12/30/16 08:51 Dose: 100 mg Venlafaxine HCl (Effexor) 75 mg PO BID [facility] Last Admin: 12/30/16 08:51 Dose: 75 mg Discontinued Medications Clonidine HCl (Catapres) 0.2 mg PO BID PRN PRN Reason: Hypertension Last Admin: 12/27/16 17:13 Dose: 0.2 mg Folic Acid (Folic Acid) 1 mg PO DAILY [facility] Last Admin: 12/28/16 08:43 Dose: 1 mg Folic Acid (Folic Acid) 1 mg SUBCUT DAILY [facility] Last Admin: 12/29/16 09:01 Dose: 1 mg Hydromorphone HCl (Dilaudid) 1 mg IVPUSH ONETIME ONE Stop: 12/26/16 19:31 Last Admin: 12/26/16 19:59 Dose: 1 mg Hydromorphone HCl (Dilaudid) 1 mg IVPUSH ONETIME ONE Stop: 12/26/16 21:44 Last Admin: 12/26/16 21:57 Dose: 1 mg Hydromorphone HCl (Dilaudid) 1 mg IVPUSH Q2H PRN PRN Reason: Pain (severe 7-10) Last Admin: 12/27/16 09:06 Dose: 1 mg Hydromorphone HCl (Dilaudid) 1 mg IVPUSH Q2H PRN PRN Reason: Pain (severe 7-10) Last Admin: 12/27/16 19:06 Dose: 1 mg Hydromorphone HCl (Dilaudid) 2 mg IVPUSH Q2H PRN PRN Reason: Pain (severe 7-10) Sodium Chloride (Normal Saline) 1,000 mls @ 999 mls/hr IV STAT ONE Stop: 12/26/16 20:30 Last Admin: 12/26/16 19:55 Dose: 999 mls/hr Multivitamins/Minerals 10 ml/Thiamine HCl 100 mg/ Folic Acid 1 mg/ Magnesium Sulfate 1 gm/ Sodium Chloride 1,013.2 mls @ 150 mls/hr IV ONETIME ONE Stop: 12/27/16 04:23 Last Admin: 12/26/16 22:49 Dose: Not Given Sodium Chloride (Normal Saline) 1,000 mls @ 125 mls/hr IV ASDIRECTED [facility] Last Admin: 12/30/16 02:45 Dose: 125 mls/hr Multivitamins/Minerals 10 ml/Thiamine HCl 100 mg/ Folic Acid 1 mg/ Sodium Chloride 1,011.2 mls @ 125 mls/hr IV DAILY ONE Stop: 12/27/16 17:05 Multivitamins/Minerals 10 ml/Thiamine HCl 100 mg/ Folic Acid 1 mg/ Sodium Chloride 1,011.2 mls @ 125 mls/hr IV DAILY ONE Stop: 12/27/16 06:35 Last Admin: 12/26/16 22:43 Dose: 125 mls/hr Multivitamins/Minerals 10 ml/Thiamine HCl 100 mg/ Folic Acid 1 mg/ Sodium Chloride 1,011.2 mls @ 150 mls/hr IV ONETIME ONE Stop: 12/27/16 05:11 Last Admin: 12/26/16 23:04 Dose: Not Given Magnesium Sulfate 2 gm/ Premix 50 mls @ 50 mls/hr IV ONETIME ONE Stop: 12/27/16 00:18 Last Admin: 12/26/16 23:31 Dose: 50 mls/hr Magnesium Sulfate 2 gm/ Premix 50 mls @ 25 mls/hr IV ONETIME ONE Stop: 12/27/16 10:34 Last Admin: 12/27/16 08:44 Dose: 25 mls/hr Magnesium Sulfate 4 gm/ Premix 100 mls @ 50 mls/hr IV ONETIME ONE Stop: 12/28/16 10:24 Last Admin: 12/28/16 08:40 Dose: 50 mls/hr Thiamine HCl 100 mg/ Sodium (Chloride) 101 mls @ 100 mls/hr IV BID ONE Stop: 12/28/16 13:39 Last Admin: 12/28/16 12:57 Dose: 100 mls/hr Thiamine HCl 100 mg/ Sodium (Chloride) 101 mls @ 100 mls/hr IV BID [facility] Last Admin: 12/29/16 11:03 Dose: 100 mls/hr Iopamidol (Isovue Multipack-370 (76%)) 100 ml IVPUSH ONETIME STA Stop: 12/26/16 20:52 Last Admin: 12/26/16 20:51 Dose: 100 ml Lorazepam (Ativan) 1 mg IVPUSH ONETIME ONE Stop: 12/26/16 21:44 Last Admin: 12/26/16 21:56 Dose: 1 mg Lorazepam (Ativan) 1 mg IM Q6H [facility] Last Admin: 12/26/16 23:41 Dose: Not Given Lorazepam (Ativan) 1 mg IM Q4H PRN PRN Reason: Anxiety Magnesium Sulfate (Magnesium Sulfate 50%) 1 gm IV ONETIME ONE Stop: 12/26/16 22:28 Last Admin: 12/26/16 23:42 Dose: Not Given Magnesium Sulfate (Magnesium Sulfate 50%) 1 gm IV ONETIME ONE Stop: 12/26/16 23:16 Last Admin: 12/26/16 23:42 Dose: Not Given Multivit/Ca Carb/B Cmplx/FA/Prenat (Renal Caps Softgel) 1 cap PO DAILY [facility] Last Admin: 12/27/16 18:44 Dose: Not Given Ondansetron HCl (Zofran) 4 mg IVPUSH ONETIME ONE Stop: 12/26/16 19:31 Last Admin: 12/26/16 19:59 Dose: 4 mg Pantoprazole Sodium (Protonix Iv) 80 mg IVPUSH .BOLUS ONE Stop: 12/26/16 19:31 Last Admin: 12/26/16 20:00 Dose: 80 mg Pantoprazole Sodium (Protonix Iv) 40 mg IVPUSH Q12HR [facility] Thiamine HCl (Vitamin B-1) 100 mg PO DAILY [facility] Last Admin: 12/28/16 08:43 Dose: 100 mg Thiamine HCl (Vitamin B-1) 100 mg IV BID [facility] - Exam Quality Assessment: No: supplemental oxygen General: alert, oriented, cooperative Lungs: Clear to auscultation, Normal respiratory effort Cardiovascular: Regular Rate, Regular Rhythm, No Murmurs Abdomen: bowel sounds present, soft, distension. No: rigidity, rebound, guarding Extremities: no edema, normal pulses, no tenderness/swelling Skin: warm, dry, intact Neurological: no new focal deficit Psy/Mental Status: alert, normal affect, normal mood - Problem List & Annotations (1) Pancreatitis, alcoholic, acute SNOMED Code(s): 905781315 Code(s): K85.20 - ALCOHOL INDUCED ACUTE PANCREATITIS WITHOUT NECROSIS OR INFCT Status: Acute Current Visit: Yes Qualifiers: Acute pancreatitis complication: no infection or necrosis Qualified Code(s) : K85.20 - Alcohol induced acute pancreatitis without necrosis or infection (2) Alcohol abuse SNOMED Code(s): 90335271 Code(s): F10.10 - ALCOHOL ABUSE, UNCOMPLICATED Status: Chronic Priority: Medium Current Visit: No (3) Depression SNOMED Code(s): 35544267 Code(s): F32.9 - MAJOR DEPRESSIVE DISORDER, SINGLE EPISODE, UNSPECIFIED Status: Chronic Priority: Medium Current Visit: No Qualifiers: Major depression episode severity: unspecified (4) HTN, Essential hypertension SNOMED Code(s): 75066376 Code(s): I10 - ESSENTIAL (PRIMARY) HYPERTENSION Status: Chronic Priority : Medium Current Visit: No (5) Neuropathy SNOMED Code(s): 352987902 Code(s): G62.9 - POLYNEUROPATHY, UNSPECIFIED Status: Chronic Current Visit: No Annotation/Comment:: due to alcohol - Problem List Review Problem List Initiated/Reviewed/Updated: Yes - My Orders Last 24 Hours: My Active Orders 12/30/16 09:18 Sodium Chloride 0.9% [Normal Saline] 1,000 ml IV ASDIRECTED 12/30/16 Lunch NPO [Nothing Per Oral Diet] [DIET] - Plan Plan:: see orders Puneet hurt MD 12/27/2016 continue present care close monitoring anticipated discharge about three days. Puneet Hurt MD 12/28/2016 because of concerns about absorption, will change folic acid and thiamine to parenteral. vasotec IV scheduled for HTN close monitoring. Puneet Hurt MD 12/29/2016 prolonged symptoms. I discussed the possibility of TPN if not increasing po intake within 48 hours. Puneet Hurt MD 12.30.2016 1. Acute on chronic pancreatitis: Will increase IVFs to 200 ml/hr and change back to NPO, having increased pain with eating and nausea. Typically needs prolonged periods of NPO before transitioning to diet. Dilaudid and Zofran for pain and nausea 2. HTN: Continue home meds with sips of water, elevated intermittently. 3. Alcohol abuse: Continue CIWAA, was placed on scheduled Ativan. No signs of withdrawl noted. Folic acid and thiamine supplementation. 4. Peripheral neuropathy: Continue Lyrica. VTE: SCDs due to alcohol abuse and risk of bleeding Dispo: 2-4 days pending improvement.
[2016-12-31] MEDS: HYDROmorphone 2 MG/ML Syringe IVPUSH PRN ×7 (01:50→21:03)
[2016-12-31] MEDS: Enalaprilat 1.25 MG/ML SDV IVPUSH SCH ×4 (01:53→18:26)
[2016-12-31] MEDS: Sodium Chloride 0.9% 1,000 ML IV SCH ×5 (02:01→22:30)
[2016-12-31 04:50] LABS: CHLORIDE,CL 97 mmol/L (98-110); SODIUM,NA 137 mmol/L (136-146)
[2016-12-31] MEDS: LORazepam 2 MG/ML MDV IVPUSH SCH (06:18)
[2016-12-31] MEDS ORDERED: Magnesium Sulfate/Water 4 GM in Premix Bag 1 BAG IV ONE (08:04)
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
[2016-12-31] MEDS: Venlafaxine 37.5 MG Tab PO SCH ×2 (08:15→20:38)
[2016-12-31] MEDS: amLODIPine 5 MG Tab PO SCH (08:15)
[2016-12-31] MEDS: Folic Acid 1 MG Tab PO SCH (08:16)
[2016-12-31] MEDS: Thiamine 100 MG Tab PO SCH ×2 (08:16→21:02)
[2016-12-31] MEDS: Ondansetron 4 MG/2 ML SDV IVPUSH PRN (08:18)
[2016-12-31] MEDS: Pregabalin 75 MG Cap PO SCH (08:19)
[2016-12-31] MEDS ORDERED: LORazepam 2 MG/ML MDV IVPUSH ONE (09:15)
[2016-12-31] MEDS: Pantoprazole 40 MG in Sodium Chloride 0.9% 10 ML IV SCH ×2 (09:58→21:02)
[2016-12-31] MEDS ORDERED: Metoprolol Tartrate 5 MG/5 ML SDV IVPUSH PRN (13:03)
[2016-12-31] MEDS: LORazepam 2 MG/ML MDV IVPUSH PRN (15:59)
[2016-12-31] MEDS: Nicotine 7 MG/24 Hr Patch TRDERM SCH (21:01)
[2017-01-01] MEDS: HYDROmorphone 2 MG/ML Syringe IVPUSH PRN ×8 (00:05→15:21)
[2017-01-01] MEDS: Enalaprilat 1.25 MG/ML SDV IVPUSH SCH ×5 (00:05→23:50)
[2017-01-01] MEDS: Sodium Chloride 0.9% 1,000 ML IV SCH ×4 (03:30→20:39)
[2017-01-01 05:12] LABS: CHLORIDE,CL 104 mmol/L (98-110); SODIUM,NA 137 mmol/L (136-146)
--- NOTE | 2017-01-01 05:15 | PCM.SN ---
- Free Text/Narrative Note: He feels much better. He has not had any ativan since last night. no vomiting no tachycardia he is alert and conversant no confusion or hallucinations. A) pancreatitis alcohol withdrawl - much improved symptoms P: to floor Puneet Hurt MD
[2017-01-01] MEDS ORDERED: Magnesium Sulfate/Water 4 GM in Premix Bag 1 BAG IV ONE (08:31)
--- NOTE | 2017-01-01 08:34 | PCM.PN ---
- General Info Date of Service: 01/01/17 Admission Dx/Problem (Free Text): Admission Diagnosis/Problem Admission Diagnosis/Problem Pancreatitis Subjective Update: Much improved today. No further hallucinations since yesterday afternoon. Feels very bad about what happened yesterday, feels like it was a big scary dream. Still having abdominal pain today, stating it is starting to be more localized to epigastric instead of spread out. No chest pain or SOB. Nausea is improving, no vomiting. passing flatus. Would like to try CL this evening. Functional Status: Reports: pain controlled, ambulating, urinating. Denies: tolerating diet - Review of Systems General: Reports: No Symptoms. Denies: Fever HEENT: Reports: no symptoms. Denies: sinus congestion, sore throat Pulmonary: Reports: no symptoms. Denies: shortness of breath Cardiovascular: Reports: No Symptoms. Denies: Chest Pain Gastrointestinal: Reports: No symptoms. Denies: Abdominal pain, Nausea, Vomiting Genitourinary: Reports: no symptoms. Denies: dysuria, frequency, burning Musculoskeletal: Reports: no symptoms Skin: Reports: no symptoms Neurological: Reports: No Symptoms Psychiatric: Reports: no symptoms. Denies: hallucinations - Patient Data Vitals - most recent: Last Vital Signs Temp 97.5 F 01/01/17 08:00 Pulse 104 H 01/01/17 08:00 Resp 20 01/01/17 08:00 BP 148/100 H 01/01/17 08:00 Pulse Ox 97 01/01/17 08:00 Weight - most recent: 87.8 kg I&O - last 24 hours: Intake & Output 12/31/16 01/01/17 01/01/17 22:59 06:59 14:59 Intake Total 0 100 Output Total 3120 1900 Balance -1070 -1800 Lab Results last 24 hrs: Laboratory Results - last 24 hr 01/01/17 01/01/17 Range/Units 04:34 04:34 WBC 6.10 (4.0-11.0) K/uL RBC 4.58 (4.50-5.90) M/uL Hgb 14.1 (13.0-17.0) g/dL Hct 40.7 (38.0-50.0) % MCV 88.9 (80.0-98.0) fL MCH 30.8 (27.0-32.0) pg MCHC 34.6 (31.0-37.0) g/dL RDW Std Deviation 39.1 (28.0-62.0) fl RDW Coeff of Conrad 12 (11.0-15.0) % Plt Count 201 (150-400) K/uL MPV 10.20 (7.40-12.00) fL Neut % (Auto) 55.9 (48.0-80.0) % Lymph % (Auto) 27.7 (16.0-40.0) % Mcduffie % (Auto) 12.3 (0.0-15.0) % Eos % (Auto) 3.8 (0.0-7.0) % Baso % (Auto) 0.3 (0.0-1.5) % Neut # (Auto) 3.4 (1.4-5.7) K/uL Lymph # (Auto) 1.7 (0.6-2.4) K/uL Mcduffie # (Auto) 0.8 (0.0-0.8) K/uL Eos # (Auto) 0.2 (0.0-0.7) K/uL Baso # (Auto) 0.0 (0.0-0.1) K/uL Nucleated RBC % 0.0 /100WBC Nucleated RBCs # 0 K/uL Sodium 137 (136-146) mmol/L Potassium 3.7 (3.5-5.1) mmol/L Chloride 104 (98-110) mmol/L Carbon Dioxide 20 L (21-31) mmol/L BUN 5 L (6.0-23.0) mg/dL Creatinine 0.6 (0.6-1.5) mg/dL Est Cr Clr Drug Dosing 190.28 mL/min Estimated GFR (MDRD) > 60.0 ml/min Glucose 115 H (60-110) mg/dL Calcium 8.2 L (8.8-10.8) mg/dL Magnesium 1.4 L (1.5-2.3) mEq/L Total Bilirubin 0.7 (0.1-1.5) mg/dL AST 36 (5-40) IU/L ALT 37 (8-54) IU/L Alkaline Phosphatase 60 (40-150) Total Protein 6.5 (6.0-8.0) g/dL Albumin 4.0 (3.5-5.0) g/dL Globulin 2.5 (2.0-3.5) g/dL Albumin/Globulin Ratio 1.6 (1.3-2.8) Med Orders - Current: Current Medications Amlodipine Besylate (Norvasc) 10 mg PO DAILY [facility] Last Admin: 12/31/16 08:15 Dose: 10 mg Clonidine HCl (Catapres) 0.2 mg PO Q6H PRN PRN Reason: Hypertension Last Admin: 12/28/16 05:15 Dose: 0.2 mg Enalaprilat (Vasotec Iv) 1.25 mg IVPUSH Q6H PAU Last Admin: 01/01/17 06:40 Dose: 1.25 mg Folic Acid (Folic Acid) 1 mg SUBCUT DAILY [facility] Hydromorphone HCl (Dilaudid) 2 mg IVPUSH Q2H PRN PRN Reason: Pain (severe 7-10) Last Admin: 01/01/17 06:44 Dose: 2 mg Pantoprazole Sodium 40 mg/ (Sodium Chloride) 10 mls @ 300 mls/hr IV Q12H [facility] Last Admin: 12/31/16 21:02 Dose: 300 mls/hr Sodium Chloride (Normal Saline) 1,000 mls @ 200 mls/hr IV ASDIRECTED [facility] Last Admin: 01/01/17 03:30 Dose: 200 mls/hr Magnesium Sulfate 4 gm/ Premix 100 mls @ 50 mls/hr IV ONETIME ONE Stop: 01/01/17 10:30 Lorazepam (Ativan) 0 mg IVPUSH Q2H PRN; Protocol PRN Reason: anxiety/withdrawal Last Admin: 12/31/16 15:59 Dose: 2 mg Metoprolol Tartrate (Lopressor) 5 mg IVPUSH Q6H PRN PRN Reason: Tachycardia Nicotine (Habitrol) 7 mg TRDERM DAILY [facility] Last Admin: 12/31/16 21:01 Dose: 7 mg Ondansetron HCl (Zofran) 4 mg IVPUSH Q4H PRN PRN Reason: Nausea Last Admin: 12/31/16 08:18 Dose: 4 mg Sodium Chloride (Saline Flush) 10 ml FLUSH ASDIRECTED PRN PRN Reason: Keep Vein Open Last Admin: 12/26/16 21:56 Dose: 10 ml Sodium Chloride (Saline Flush) 2.5 ml FLUSH ASDIRECTED PRN PRN Reason: Keep Vein Open Last Admin: 12/26/16 19:59 Dose: 2.5 ml Thiamine HCl (Vitamin B-1) 100 mg PO BID [facility] Last Admin: 12/31/16 21:02 Dose: 100 mg Venlafaxine HCl (Effexor) 75 mg PO BID [facility] Last Admin: 12/31/16 20:38 Dose: 75 mg Discontinued Medications Clonidine HCl (Catapres) 0.2 mg PO BID PRN PRN Reason: Hypertension Last Admin: 12/27/16 17:13 Dose: 0.2 mg Folic Acid (Folic Acid) 1 mg PO DAILY [facility] Last Admin: 12/28/16 08:43 Dose: 1 mg Folic Acid (Folic Acid) 1 mg SUBCUT DAILY [facility] Last Admin: 12/29/16 09:01 Dose: 1 mg Folic Acid (Folic Acid) 1 mg PO DAILY [facility] Last Admin: 12/31/16 08:16 Dose: 1 mg Hydromorphone HCl (Dilaudid) 1 mg IVPUSH ONETIME ONE Stop: 12/26/16 19:31 Last Admin: 12/26/16 19:59 Dose: 1 mg Hydromorphone HCl (Dilaudid) 1 mg IVPUSH ONETIME ONE Stop: 12/26/16 21:44 Last Admin: 12/26/16 21:57 Dose: 1 mg Hydromorphone HCl (Dilaudid) 1 mg IVPUSH Q2H PRN PRN Reason: Pain (severe 7-10) Last Admin: 12/27/16 09:06 Dose: 1 mg Hydromorphone HCl (Dilaudid) 1 mg IVPUSH Q2H PRN PRN Reason: Pain (severe 7-10) Last Admin: 12/27/16 19:06 Dose: 1 mg Hydromorphone HCl (Dilaudid) 2 mg IVPUSH Q2H PRN PRN Reason: Pain (severe 7-10) Sodium Chloride (Normal Saline) 1,000 mls @ 999 mls/hr IV STAT ONE Stop: 12/26/16 20:30 Last Admin: 12/26/16 19:55 Dose: 999 mls/hr Multivitamins/Minerals 10 ml/Thiamine HCl 100 mg/ Folic Acid 1 mg/ Magnesium Sulfate 1 gm/ Sodium Chloride 1,013.2 mls @ 150 mls/hr IV ONETIME ONE Stop: 12/27/16 04:23 Last Admin: 12/26/16 22:49 Dose: Not Given Sodium Chloride (Normal Saline) 1,000 mls @ 125 mls/hr IV ASDIRECTED [facility] Last Admin: 12/30/16 02:45 Dose: 125 mls/hr Multivitamins/Minerals 10 ml/Thiamine HCl 100 mg/ Folic Acid 1 mg/ Sodium Chloride 1,011.2 mls @ 125 mls/hr IV DAILY ONE Stop: 12/27/16 17:05 Multivitamins/Minerals 10 ml/Thiamine HCl 100 mg/ Folic Acid 1 mg/ Sodium Chloride 1,011.2 mls @ 125 mls/hr IV DAILY ONE Stop: 12/27/16 06:35 Last Admin: 12/26/16 22:43 Dose: 125 mls/hr Multivitamins/Minerals 10 ml/Thiamine HCl 100 mg/ Folic Acid 1 mg/ Sodium Chloride 1,011.2 mls @ 150 mls/hr IV ONETIME ONE Stop: 12/27/16 05:11 Last Admin: 12/26/16 23:04 Dose: Not Given Magnesium Sulfate 2 gm/ Premix 50 mls @ 50 mls/hr IV ONETIME ONE Stop: 12/27/16 00:18 Last Admin: 12/26/16 23:31 Dose: 50 mls/hr Magnesium Sulfate 2 gm/ Premix 50 mls @ 25 mls/hr IV ONETIME ONE Stop: 12/27/16 10:34 Last Admin: 12/27/16 08:44 Dose: 25 mls/hr Magnesium Sulfate 4 gm/ Premix 100 mls @ 50 mls/hr IV ONETIME ONE Stop: 12/28/16 10:24 Last Admin: 12/28/16 08:40 Dose: 50 mls/hr Thiamine HCl 100 mg/ Sodium (Chloride) 101 mls @ 100 mls/hr IV BID ONE Stop: 12/28/16 13:39 Last Admin: 12/28/16 12:57 Dose: 100 mls/hr Thiamine HCl 100 mg/ Sodium (Chloride) 101 mls @ 100 mls/hr IV BID [facility] Last Admin: 12/29/16 11:03 Dose: 100 mls/hr Magnesium Sulfate 4 gm/ Premix 100 mls @ 50 mls/hr IV ONETIME ONE Stop: 12/31/16 10:03 Last Admin: 12/31/16 08:18 Dose: 50 mls/hr Iopamidol (Isovue Multipack-370 (76%)) 100 ml IVPUSH ONETIME STA Stop: 12/26/16 20:52 Last Admin: 12/26/16 20:51 Dose: 100 ml Lorazepam (Ativan) 1 mg IVPUSH ONETIME ONE Stop: 12/26/16 21:44 Last Admin: 12/26/16 21:56 Dose: 1 mg Lorazepam (Ativan) 1 mg IM Q6H [facility] Last Admin: 12/26/16 23:41 Dose: Not Given Lorazepam (Ativan) 1 mg IM Q4H PRN PRN Reason: Anxiety Lorazepam (Ativan) 1 mg IVPUSH Q6H [facility] Last Admin: 12/31/16 06:18 Dose: 1 mg Lorazepam (Ativan) 0 mg IVPUSH Q4H PRN; Protocol PRN Reason: anxiety/withdrawal Lorazepam (Ativan) 2 mg IVPUSH ONETIME ONE Stop: 12/31/16 09:16 Last Admin: 12/31/16 10:07 Dose: 2 mg Magnesium Sulfate (Magnesium Sulfate 50%) 1 gm IV ONETIME ONE Stop: 12/26/16 22:28 Last Admin: 12/26/16 23:42 Dose: Not Given Magnesium Sulfate (Magnesium Sulfate 50%) 1 gm IV ONETIME ONE Stop: 12/26/16 23:16 Last Admin: 12/26/16 23:42 Dose: Not Given Multivit/Ca Carb/B Cmplx/FA/Prenat (Renal Caps Softgel) 1 cap PO DAILY [facility] Last Admin: 12/27/16 18:44 Dose: Not Given Ondansetron HCl (Zofran) 4 mg IVPUSH ONETIME ONE Stop: 12/26/16 19:31 Last Admin: 12/26/16 19:59 Dose: 4 mg Pantoprazole Sodium (Protonix Iv) 80 mg IVPUSH .BOLUS ONE Stop: 12/26/16 19:31 Last Admin: 12/26/16 20:00 Dose: 80 mg Pantoprazole Sodium (Protonix Iv) 40 mg IVPUSH Q12HR [facility] Pregabalin (Lyrica) 150 mg PO BID [facility] Last Admin: 12/31/16 08:19 Dose: 150 mg Temazepam (Restoril) 15 mg PO BEDTIME PRN PRN Reason: Sleep Thiamine HCl (Vitamin B-1) 100 mg PO DAILY [facility] Last Admin: 12/28/16 08:43 Dose: 100 mg Thiamine HCl (Vitamin B-1) 100 mg IV BID [facility] - Exam General: alert, oriented, cooperative Lungs: Clear to auscultation, Normal respiratory effort Cardiovascular: Regular Rate, Regular Rhythm Abdomen: bowel sounds present, soft, no distension, tenderness (epigastric) Extremities: no edema, normal pulses Skin: warm, dry, intact Neurological: no new focal deficit Psy/Mental Status: alert, normal affect, normal mood - Problem List & Annotations (1) Delirium tremens SNOMED Code(s): 8101228, 62362266 Code(s): F10.231 - ALCOHOL DEPENDENCE WITH WITHDRAWAL DELIRIUM Status: Acute Current Visit: Yes (2) Pancreatitis, alcoholic, acute SNOMED Code(s): 951851645 Code(s): K85.20 - ALCOHOL INDUCED ACUTE PANCREATITIS WITHOUT NECROSIS OR INFCT Status: Acute Current Visit: Yes Qualifiers: Acute pancreatitis complication: no infection or necrosis Qualified Code(s) : K85.20 - Alcohol induced acute pancreatitis without necrosis or infection (3) Alcohol abuse SNOMED Code(s): 86640735 Code(s): F10.10 - ALCOHOL ABUSE, UNCOMPLICATED Status: Chronic Priority: Medium Current Visit: No (4) Depression SNOMED Code(s): 86125680 Code(s): F32.9 - MAJOR DEPRESSIVE DISORDER, SINGLE EPISODE, UNSPECIFIED Status: Chronic Priority: Medium Current Visit: No Qualifiers: Major depression episode severity: unspecified (5) HTN, Essential hypertension SNOMED Code(s): 84458843 Code(s): I10 - ESSENTIAL (PRIMARY) HYPERTENSION Status: Chronic Priority : Medium Current Visit: No (6) Neuropathy SNOMED Code(s): 109532612 Code(s): G62.9 - POLYNEUROPATHY, UNSPECIFIED Status: Chronic Current Visit: No Annotation/Comment:: due to alcohol - Problem List Review Problem List Initiated/Reviewed/Updated: Yes - My Orders Last 24 Hours: My Active Orders 12/31/16 09:04 Transfer Patient (Change bed) [ADT] Routine 12/31/16 09:24 LORazepam [Ativan] See Protocol IVPUSH Q2H PRN 12/31/16 13:03 Metoprolol Tartrate [Lopressor] 5 mg IVPUSH Q6H PRN 01/01/17 08:31 Magnesium Sulfate/Water [Magnesium Sulfate 4 GM in Water 100 ML] 4 gm Premix Bag 1 bag IV ONETIME 01/01/17 09:00 Folic Acid 1 mg SUBCUT DAILY 01/02/17 05:00 CBC WITH AUTO DIFF [HEME] DAILY COMPREHENSIVE METABOLIC PN,CMP [CHEM] DAILY MG [MAGNESIUM] [CHEM] DAILY 01/03/17 05:00 CBC WITH AUTO DIFF [HEME] DAILY COMPREHENSIVE METABOLIC PN,CMP [CHEM] DAILY MG [MAGNESIUM] [CHEM] DAILY 01/04/17 05:00 CBC WITH AUTO DIFF [HEME] DAILY COMPREHENSIVE METABOLIC PN,CMP [CHEM] DAILY MG [MAGNESIUM] [CHEM] DAILY 01/05/17 05:00 CBC WITH AUTO DIFF [HEME] DAILY COMPREHENSIVE METABOLIC PN,CMP [CHEM] DAILY MG [MAGNESIUM] [CHEM] DAILY - Plan Plan:: 1. Acute alcohol withdrawal: No further hallucinations. Continue CIWAA protocol Q2h. Continue Folic acid and Thiamine supplementation. Replaced Mg this am. 2. Acute on chronic pancreatitis: Continue IVFs to 200 ml/hr, continue NPO. Start CL this evening and change pain meds to oral. 3. HTN: Continue home meds with sips of water, PRN medications available. 4. Peripheral neuropathy: Will restart Lyrica in am VTE prophylaxis: SCDs due to alcohol abuse and risk of bleeding Dispo: Possible DC in am.
[2017-01-01] MEDS: Venlafaxine 37.5 MG Tab PO SCH ×2 (08:53→20:25)
[2017-01-01] MEDS: Folic Acid 50 MG/10 ML MDV SUBCUT SCH (08:54)
[2017-01-01] MEDS: Thiamine 100 MG Tab PO SCH ×2 (08:55→20:25)
[2017-01-01] MEDS: Pantoprazole 40 MG in Sodium Chloride 0.9% 10 ML IV SCH ×2 (08:55→20:26)
[2017-01-01] MEDS: amLODIPine 5 MG Tab PO SCH (08:56)
[2017-01-01] MEDS: Nicotine 7 MG/24 Hr Patch TRDERM SCH (10:17)
[2017-01-01] MEDS: oxyCODONE 5 MG Tab PO PRN ×2 (17:20→21:25)
[2017-01-02] MEDS: oxyCODONE 5 MG Tab PO PRN ×3 (01:27→12:07)
[2017-01-02] MEDS: Sodium Chloride 0.9% 1,000 ML IV SCH ×3 (01:29→11:00)
[2017-01-02] MEDS: LORazepam 2 MG/ML MDV IVPUSH PRN (01:33)
[2017-01-02 04:55] LABS: CHLORIDE,CL 104 mmol/L (98-110); SODIUM,NA 142 mmol/L (136-146)
[2017-01-02] MEDS: Enalaprilat 1.25 MG/ML SDV IVPUSH SCH (05:55)
[2017-01-02] MEDS ORDERED: LORazepam 2 MG/ML MDV IVPUSH PRN (08:34)
[2017-01-02] MEDS: Thiamine 100 MG Tab PO SCH (09:20)
[2017-01-02] MEDS: Folic Acid 50 MG/10 ML MDV SUBCUT SCH (09:21)
[2017-01-02] MEDS: amLODIPine 5 MG Tab PO SCH (09:21)
[2017-01-02] MEDS: Venlafaxine 37.5 MG Tab PO SCH (09:21)
[2017-01-02] MEDS: Pantoprazole 40 MG in Sodium Chloride 0.9% 10 ML IV SCH (09:22)
[2017-01-02] MEDS: Nicotine 7 MG/24 Hr Patch TRDERM SCH (09:26)
[2017-01-02 11:48] VITALS: BP 143/95
--- NOTE | 2017-01-02 14:09 | PCM.DCSUM1 ---
Discharge Summary - Hospital Course Brief History: The patient is a 41-year-old male with a history of hypertension , alcohol abuse and multiple visits and admissions for pancreatitis presented to the ED 12/26/2016 with persistent epigastric and left upper abdominal pain that has been ongoing and almost continuous over the last few months but with waxing and waning intensity. He was seen in the ED the day prior for same and was treated with Zofran Toradol and Pepcid. Labs were checked and returned normal, including Lipase. THe reported the pain was similar to his prior episodes and he had nausea and vomiting associated with it and inability to eat. He has not been hydrating but he has been drinking beer with intermittently hard alcohol shots. Patient reported he last drank beer about 3 hours prior to arriving to the ED. He reports he has made contact with [facility] inpatient rehab in [place], but is on the waiting list to get into this program and was told that there was a 4-6 week wait. He denied any chest pain or shortness of breath. He has had normal bowel movements, no black or bloody BMs and there's been no diarrhea. Denies urinary symptoms. The pain is dull achy and deep. He did not take anything for the pain and has nothing at home for nausea. Patient does not feel shaky currently. In the ED no leukocytosis noted, Lipase elevate 103, as well as amylase 99. Ethyl alcohol 182.1. Abdominal CT revealed mild edema around the head and body of the pancreas representing an acute pancreatitis, atrophy of the tail of the pancrease noted and diffuse fatty infiltration of the liver. PCP, Dr Verma. - Discharge Data Discharge Date: 01/02/17 Discharge Disposition: Home, Self-Care 01 Condition: Good - Discharge Diagnosis/Problem(s) (1) Delirium tremens SNOMED Code(s): 8029358, 39594233 ICD Code: F10.231 - ALCOHOL DEPENDENCE WITH WITHDRAWAL DELIRIUM Status: Acute Current Visit: Yes (2) Pancreatitis, alcoholic, acute SNOMED Code(s): 396822959 ICD Code: K85.20 - ALCOHOL INDUCED ACUTE PANCREATITIS WITHOUT NECROSIS OR INFCT Status: Acute Current Visit: Yes Qualifiers: Acute pancreatitis complication: no infection or necrosis Qualified Code(s) : K85.20 - Alcohol induced acute pancreatitis without necrosis or infection (3) Alcohol abuse SNOMED Code(s): 06120064 ICD Code: F10.10 - ALCOHOL ABUSE, UNCOMPLICATED Status: Chronic Priority : Medium Current Visit: No (4) Depression SNOMED Code(s): 44086106 ICD Code: F32.9 - MAJOR DEPRESSIVE DISORDER, SINGLE EPISODE, UNSPECIFIED Status: Chronic Priority: Medium Current Visit: No Qualifiers: Major depression episode severity: unspecified (5) HTN, Essential hypertension SNOMED Code(s): 62795656 ICD Code: I10 - ESSENTIAL (PRIMARY) HYPERTENSION Status: Chronic Priority : Medium Current Visit: No (6) Neuropathy SNOMED Code(s): 028656504 ICD Code: G62.9 - POLYNEUROPATHY, UNSPECIFIED Status: Chronic Current Visit: No Problem Details: due to alcohol - Patient Instructions Diet: GI Soft/Low Residue/Low Fiber (Low fat, Full liquid diet for next day or two then slowly advance to regular low fat diet.) Activity: As Tolerated Driving: Do Not Drive (No driving while taking narcotics) Showering/Bathing: May Shower Notify Provider of: Fever, Increased Pain, Swelling and Redness, Drainage, Nausea and/or Vomiting Other/Special Instructions: Encourage sobriety. Encourage admittance to inpatient rehab when spot is available. Attend AA meetings - Discharge Plan Prescriptions/Med Rec: Multivitamin with Folic Acid [One Daily Multivitamin Tablet] 400 mcg PO DAILY # 60 tablet oxyCODONE 10 mg PO Q6H PRN #12 tablet PRN Reason: Pain Home Medications: Home Meds amLODIPine [Norvasc] 10 mg PO DAILY #30 tablet 03/07/15 [Rx] Venlafaxine HCl 75 mg PO BID 10/23/16 [History] cloNIDine HCl [Catapres] 0.1 mg PO BID PRN 10/23/16 [History] Folic Acid 1 mg PO DAILY #30 tablet 10/28/16 [Rx] Pregabalin [Lyrica] 150 mg PO BID 11/21/16 [History] Cyclobenzaprine [Flexeril] 10 mg PO TID 12/25/16 [History] Hydrochlorothiazide 25 mg PO DAILY 12/25/16 [History] Multivitamin with Folic Acid [One Daily Multivitamin Tablet] 400 mcg PO DAILY # 60 tablet 01/02/17 [Rx] oxyCODONE 10 mg PO Q6H PRN #12 tablet 01/02/17 [Rx] - Discharge Summary/Plan Comment DC Time >30 min.: No Discharge Summary/Plan Comment: Discharge Diagnoses: Acute alcoholic pancreatitis HTN Peripheral neuropathy Alcohol abuse Durga was admitted and treated with IVFs, bowel rest, analgesia for pancreatitis. Lipase returned to normal within 2 days, pain continued. Likely has some component of chronic pancreatitis. Day 4 he have severe hallucinations , visual and auditory, with hypertension, agitation, tachycardia. He was placed in ICU for monitoring and CIWAA protocol increased. He improved within 12-24 hours. He was no longer hallucinating. CIWAA score returned to normal. Diet was increased to CL and subsequently to FL, which he tolerated well. Pain medication changed to oral, which he tolerated well. No further nausea or pain with eating. Pain remains to epigastric region but this has diminished since admission. He chronically has some epigastric pain. He is requesting discharge today. Inpatient rehabilitation is urged, he reports he is on a waiting list in [place] and will make contact with them on discharge. He is encouraged to choose sobriety and we discussed again as in the past, decreasing outside influences such as not working near alcohol, not allowing anyone near him to be drinking in his presence and changing his place of living due to roommate having an alcohol problem as well. He knows of AA meeting near him and verbally states he will go to those daily and states he will not drink upon discharge. Withdrawal this admission appeared worse then in previous past, he may be drinking more alcohol than he is reporting. (6-12 beers and 3-4 shots of hard alcohol throughout the day). I will discharge him today with follow with PCP on Friday. Oxycodone 10 mg q6hrs PRN pain #12 tabs given and encouraged to take Multivitamin with folic acid daily as well. He is to return to ED or clinic if concerns should arise. - General Info Date of Service: 01/02/17 Admission Dx/Problem (Free Text: Admission Diagnosis/Problem Admission Diagnosis/Problem Pancreatitis Subjective Update: Tolerating FL diet this afternoon, continues to have dull achiness to epigastric region. Up ambulating in room. No chest pain or SOB. Functional Status: Reports: pain controlled, tolerating diet, ambulating, urinating - Review of Systems General: Reports: No Symptoms. Denies: Fever HEENT: Reports: no symptoms Pulmonary: Reports: no symptoms. Denies: shortness of breath, cough, sputum Cardiovascular: Reports: No Symptoms. Denies: Chest Pain, Edema Gastrointestinal: Reports: Abdominal pain (epigastric, improving), Flatus. Denies: Diarrhea, Nausea, Vomiting Genitourinary: Reports: no symptoms. Denies: dysuria, frequency, burning Musculoskeletal: Reports: no symptoms Skin: Reports: no symptoms Neurological: Reports: No Symptoms Psychiatric: Reports: no symptoms - Patient Data Vitals - Most Recent: Last Vital Signs Temp 97.9 F 01/02/17 11:47 Pulse 80 01/02/17 11:47 Resp 20 01/02/17 11:47 BP 143/95 H 01/02/17 11:47 Pulse Ox 97 01/02/17 11:47 Weight - Most Recent: 87.8 kg I&O - Last 24 hours: Intake & Output 01/01/17 01/02/17 01/02/17 22:59 06:59 14:59 Intake Total 2469 5392 Output Total 2123 3875 Balance 344 1517 Lab Results - Last 24 hrs: Laboratory Results - last 24 hr 01/02/17 01/02/17 Range/Units 04:08 04:08 WBC 6.98 (4.0-11.0) K/uL RBC 5.17 (4.50-5.90) M/uL Hgb 16.1 (13.0-17.0) g/dL Hct 45.6 (38.0-50.0) % MCV 88.2 (80.0-98.0) fL MCH 31.1 (27.0-32.0) pg MCHC 35.3 (31.0-37.0) g/dL RDW Std Deviation 38.8 (28.0-62.0) fl RDW Coeff of Conrad 12 (11.0-15.0) % Plt Count 252 (150-400) K/uL MPV 10.50 (7.40-12.00) fL Neut % (Auto) 61.0 (48.0-80.0) % Lymph % (Auto) 22.2 (16.0-40.0) % [place] % (Auto) 12.2 (0.0-15.0) % Eos % (Auto) 4.2 (0.0-7.0) % Baso % (Auto) 0.4 (0.0-1.5) % Neut # (Auto) 4.3 (1.4-5.7) K/uL Lymph # (Auto) 1.6 (0.6-2.4) K/uL [place] # (Auto) 0.9 H (0.0-0.8) K/uL Eos # (Auto) 0.3 (0.0-0.7) K/uL Baso # (Auto) 0.0 (0.0-0.1) K/uL Nucleated RBC % 0.0 /100WBC Nucleated RBCs # 0 K/uL Sodium 142 (136-146) mmol/L Potassium 3.8 (3.5-5.1) mmol/L Chloride 104 (98-110) mmol/L Carbon Dioxide 23 (21-31) mmol/L BUN 3 L (6.0-23.0) mg/dL Creatinine 0.7 (0.6-1.5) mg/dL Est Cr Clr Drug Dosing 163.10 mL/min Estimated GFR (MDRD) > 60.0 ml/min Glucose 149 H (60-110) mg/dL Calcium 8.9 (8.8-10.8) mg/dL Magnesium 1.5 (1.5-2.3) mEq/L Total Bilirubin 0.8 (0.1-1.5) mg/dL AST 37 (5-40) IU/L ALT 43 (8-54) IU/L Alkaline Phosphatase 62 (40-150) Total Protein 7.2 (6.0-8.0) g/dL Albumin 4.4 (3.5-5.0) g/dL Globulin 2.8 (2.0-3.5) g/dL Albumin/Globulin Ratio 1.6 (1.3-2.8) Med Orders - Current: Current Medications Amlodipine Besylate (Norvasc) 10 mg PO DAILY [facility] Last Admin: 01/02/17 09:21 Dose: 10 mg Clonidine HCl (Catapres) 0.2 mg PO Q6H PRN PRN Reason: Hypertension Last Admin: 12/28/16 05:15 Dose: 0.2 mg Enalaprilat (Vasotec Iv) 1.25 mg IVPUSH Q6H [facility] Last Admin: 01/02/17 05:55 Dose: 1.25 mg Folic Acid (Folic Acid) 1 mg SUBCUT DAILY [facility] Last Admin: 01/02/17 09:21 Dose: 1 mg Pantoprazole Sodium 40 mg/ (Sodium Chloride) 10 mls @ 300 mls/hr IV Q12H [facility] Last Admin: 01/02/17 09:22 Dose: 300 mls/hr Sodium Chloride (Normal Saline) 1,000 mls @ 200 mls/hr IV ASDIRECTED [facility] Last Admin: 01/02/17 11:00 Dose: 200 mls/hr Lorazepam (Ativan) 0 mg IVPUSH Q4H PRN; Protocol PRN Reason: anxiety/withdrawal Metoprolol Tartrate (Lopressor) 5 mg IVPUSH Q6H PRN PRN Reason: Tachycardia Nicotine (Habitrol) 7 mg TRDERM DAILY [facility] Last Admin: 01/02/17 09:26 Dose: Not Given Ondansetron HCl (Zofran) 4 mg IVPUSH Q4H PRN PRN Reason: Nausea Last Admin: 12/31/16 08:18 Dose: 4 mg Oxycodone HCl (Oxycodone) 10 mg PO Q4H PRN PRN Reason: Pain Last Admin: 01/02/17 12:07 Dose: 10 mg Sodium Chloride (Saline Flush) 10 ml FLUSH ASDIRECTED PRN PRN Reason: Keep Vein Open Last Admin: 12/26/16 21:56 Dose: 10 ml Sodium Chloride (Saline Flush) 2.5 ml FLUSH ASDIRECTED PRN PRN Reason: Keep Vein Open Last Admin: 12/26/16 19:59 Dose: 2.5 ml Thiamine HCl (Vitamin B-1) 100 mg PO BID [facility] Last Admin: 01/02/17 09:20 Dose: 100 mg Venlafaxine HCl (Effexor) 75 mg PO BID [facility] Last Admin: 01/02/17 09:21 Dose: 75 mg Discontinued Medications Clonidine HCl (Catapres) 0.2 mg PO BID PRN PRN Reason: Hypertension Last Admin: 12/27/16 17:13 Dose: 0.2 mg Folic Acid (Folic Acid) 1 mg PO DAILY [facility] Last Admin: 12/28/16 08:43 Dose: 1 mg Folic Acid (Folic Acid) 1 mg SUBCUT DAILY [facility] Last Admin: 12/29/16 09:01 Dose: 1 mg Folic Acid (Folic Acid) 1 mg PO DAILY [facility] Last Admin: 12/31/16 08:16 Dose: 1 mg Hydromorphone HCl (Dilaudid) 1 mg IVPUSH ONETIME ONE Stop: 12/26/16 19:31 Last Admin: 12/26/16 19:59 Dose: 1 mg Hydromorphone HCl (Dilaudid) 1 mg IVPUSH ONETIME ONE Stop: 12/26/16 21:44 Last Admin: 12/26/16 21:57 Dose: 1 mg Hydromorphone HCl (Dilaudid) 1 mg IVPUSH Q2H PRN PRN Reason: Pain (severe 7-10) Last Admin: 12/27/16 09:06 Dose: 1 mg Hydromorphone HCl (Dilaudid) 1 mg IVPUSH Q2H PRN PRN Reason: Pain (severe 7-10) Last Admin: 12/27/16 19:06 Dose: 1 mg Hydromorphone HCl (Dilaudid) 2 mg IVPUSH Q2H PRN PRN Reason: Pain (severe 7-10) Hydromorphone HCl (Dilaudid) 2 mg IVPUSH Q2H PRN PRN Reason: Pain (severe 7-10) Last Admin: 01/01/17 15:21 Dose: 2 mg Sodium Chloride (Normal Saline) 1,000 mls @ 999 mls/hr IV STAT ONE Stop: 12/26/16 20:30 Last Admin: 12/26/16 19:55 Dose: 999 mls/hr Multivitamins/Minerals 10 ml/Thiamine HCl 100 mg/ Folic Acid 1 mg/ Magnesium Sulfate 1 gm/ Sodium Chloride 1,013.2 mls @ 150 mls/hr IV ONETIME ONE Stop: 12/27/16 04:23 Last Admin: 12/26/16 22:49 Dose: Not Given Sodium Chloride (Normal Saline) 1,000 mls @ 125 mls/hr IV ASDIRECTED [facility] Last Admin: 12/30/16 02:45 Dose: 125 mls/hr Multivitamins/Minerals 10 ml/Thiamine HCl 100 mg/ Folic Acid 1 mg/ Sodium Chloride 1,011.2 mls @ 125 mls/hr IV DAILY ONE Stop: 12/27/16 17:05 Multivitamins/Minerals 10 ml/Thiamine HCl 100 mg/ Folic Acid 1 mg/ Sodium Chloride 1,011.2 mls @ 125 mls/hr IV DAILY ONE Stop: 12/27/16 06:35 Last Admin: 12/26/16 22:43 Dose: 125 mls/hr Multivitamins/Minerals 10 ml/Thiamine HCl 100 mg/ Folic Acid 1 mg/ Sodium Chloride 1,011.2 mls @ 150 mls/hr IV ONETIME ONE Stop: 12/27/16 05:11 Last Admin: 12/26/16 23:04 Dose: Not Given Magnesium Sulfate 2 gm/ Premix 50 mls @ 50 mls/hr IV ONETIME ONE Stop: 12/27/16 00:18 Last Admin: 12/26/16 23:31 Dose: 50 mls/hr Magnesium Sulfate 2 gm/ Premix 50 mls @ 25 mls/hr IV ONETIME ONE Stop: 12/27/16 10:34 Last Admin: 12/27/16 08:44 Dose: 25 mls/hr Magnesium Sulfate 4 gm/ Premix 100 mls @ 50 mls/hr IV ONETIME ONE Stop: 12/28/16 10:24 Last Admin: 12/28/16 08:40 Dose: 50 mls/hr Thiamine HCl 100 mg/ Sodium (Chloride) 101 mls @ 100 mls/hr IV BID ONE Stop: 12/28/16 13:39 Last Admin: 12/28/16 12:57 Dose: 100 mls/hr Thiamine HCl 100 mg/ Sodium (Chloride) 101 mls @ 100 mls/hr IV BID PAU Last Admin: 12/29/16 11:03 Dose: 100 mls/hr Magnesium Sulfate 4 gm/ Premix 100 mls @ 50 mls/hr IV ONETIME ONE Stop: 12/31/16 10:03 Last Admin: 12/31/16 08:18 Dose: 50 mls/hr Magnesium Sulfate 4 gm/ Premix 100 mls @ 50 mls/hr IV ONETIME ONE Stop: 01/01/17 10:30 Last Admin: 01/01/17 08:53 Dose: 50 mls/hr Iopamidol (Isovue Multipack-370 (76%)) 100 ml IVPUSH ONETIME STA Stop: 12/26/16 20:52 Last Admin: 12/26/16 20:51 Dose: 100 ml Lorazepam (Ativan) 1 mg IVPUSH ONETIME ONE Stop: 12/26/16 21:44 Last Admin: 12/26/16 21:56 Dose: 1 mg Lorazepam (Ativan) 1 mg IM Q6H [facility] Last Admin: 12/26/16 23:41 Dose: Not Given Lorazepam (Ativan) 1 mg IM Q4H PRN PRN Reason: Anxiety Lorazepam (Ativan) 1 mg IVPUSH Q6H [facility] Last Admin: 12/31/16 06:18 Dose: 1 mg Lorazepam (Ativan) 0 mg IVPUSH Q4H PRN; Protocol PRN Reason: anxiety/withdrawal Lorazepam (Ativan) 2 mg IVPUSH ONETIME ONE Stop: 12/31/16 09:16 Last Admin: 12/31/16 10:07 Dose: 2 mg Lorazepam (Ativan) 0 mg IVPUSH Q2H PRN; Protocol PRN Reason: anxiety/withdrawal Last Admin: 01/02/17 01:33 Dose: 2 mg Magnesium Sulfate (Magnesium Sulfate 50%) 1 gm IV ONETIME ONE Stop: 12/26/16 22:28 Last Admin: 12/26/16 23:42 Dose: Not Given Magnesium Sulfate (Magnesium Sulfate 50%) 1 gm IV ONETIME ONE Stop: 12/26/16 23:16 Last Admin: 12/26/16 23:42 Dose: Not Given Multivit/Ca Carb/B Cmplx/FA/Prenat (Renal Caps Softgel) 1 cap PO DAILY [facility] Last Admin: 12/27/16 18:44 Dose: Not Given Ondansetron HCl (Zofran) 4 mg IVPUSH ONETIME ONE Stop: 12/26/16 19:31 Last Admin: 12/26/16 19:59 Dose: 4 mg Pantoprazole Sodium (Protonix Iv) 80 mg IVPUSH .BOLUS ONE Stop: 12/26/16 19:31 Last Admin: 12/26/16 20:00 Dose: 80 mg Pantoprazole Sodium (Protonix Iv) 40 mg IVPUSH Q12HR [facility] Pregabalin (Lyrica) 150 mg PO BID [facility] Last Admin: 12/31/16 08:19 Dose: 150 mg Temazepam (Restoril) 15 mg PO BEDTIME PRN PRN Reason: Sleep Thiamine HCl (Vitamin B-1) 100 mg PO DAILY [facility] Last Admin: 12/28/16 08:43 Dose: 100 mg Thiamine HCl (Vitamin B-1) 100 mg IV BID PAU - Exam General: Reports: alert, oriented, cooperative Neck: Reports: supple Lungs: Reports: Clear to auscultation, Normal respiratory effort Cardiovascular: Reports: Regular Rate, Regular Rhythm Abdomen: Reports: bowel sounds present, soft, no tenderness, no distension Extremities: Reports: no edema, normal pulses Skin: Reports: warm, dry, intact Neurological: Reports: no new focal deficit Psy/Mental Status: Reports: alert, normal affect, normal mood *Q Meaningful Use (DIS) - VTE *Q VTE Criteria *Q: - Stroke *Q Stroke Criteria *Q: - AMI *Q AMI Criteria *Q:
== END 2017-01-02 13:05 | disposition home or self-care (01) | DRG 439 ==
LOC: MW.ED 19:04 → MW.ICU 21:46 → UNDOADMIN 22:37 → MW.MS 12-28 21:43 → MW.ICU 12-31 09:37 → MW.MS 01-01 05:48
PROVIDERS: ADMIT Family Medicine; ATTEND Family Medicine
DX: K85.20 Alcohol induced acute pancreatitis without necrosis or infection (principal); F10.231 Alcohol dependence with withdrawal delirium; F10.251 Alcohol dependence with alcohol-induced psychotic disorder with hallucinations; K86.0 Alcohol-induced chronic pancreatitis; K76.0 Fatty (change of) liver, not elsewhere classified; F12.90 Cannabis use, unspecified, uncomplicated; Z72.0 Tobacco use; F32.9 Major depressive disorder, single episode, unspecified; I10 Essential (primary) hypertension; G62.9 Polyneuropathy, unspecified; F41.9 Anxiety disorder, unspecified; Y90.6 Blood alcohol level of 120-199 mg/100 ml; Z79.899 Other long term (current) drug therapy; Z88.0 Allergy status to penicillin
CPT/HCPCS: 36415; 74177; 74177-26; 80053; 81001; 82150; 83690; 83735; 85025; 85610; 96361; 96374; 96375; 96376; 99285; 99285-25; A9270-GY; C9113; G0480; J1170; J2060; J2405; J3411; J3475; J7030; J7040; Q9967

== ENCOUNTER 2017-01-27 14:37 | Emergency (ER) | payer MEDICAID ==
[2017-01-27] MEDS ORDERED: Alum Hydrox/Mag Hydrox/Simeth 15 ML, Metoclopramide 5 MG, Lidocaine 2% 5 ML PO ONE ×3 (14:52)
--- NOTE | 2017-01-27 15:04 | EDM.PDOC ---
ED HPI GENERAL MEDICAL PROBLEM - General Chief Complaint: Drug or Alcohol Abuse Stated Complaint: ALCOHOL DETOX Time Seen by Provider: 01/27/17 14:40 Source of Information: Reports: Patient History Limitations: Reports: No Limitations - History of Present Illness INITIAL COMMENTS - FREE TEXT/NARRATIVE: History of present illness: []He has been drinking this morning and came in came in requesting transfer to my not to a detox facility. Patient was told by [facility] that they could come to the emergency room and be transferred to a detox facility after being evaluated. Patient complains of his usual abdominal pain from his pancreatitis is exacerbated by drinking alcohol. He has had no fevers, chills, vomiting or bloody stools. Review of systems: As per history of present illness and below otherwise all systems reviewed and negative. Past medical history: As per history of present illness and as reviewed below otherwise noncontributory. Surgical history: As per history of present illness and as reviewed below otherwise noncontributory. Social history: No reported history of drug or alcohol abuse. Family history: As per history of present illness and as reviewed below otherwise noncontributory. Physical exam: General: Well developed, well nourished in NAD HEENT: Atraumatic, normocephalic, pupils reactive, negative for conjunctival pallor or scleral icterus, mucous membranes moist, throat clear, neck supple, nontender, trachea midline. Lungs: Clear to auscultation, breath sounds equal bilaterally, chest nontender. Heart: S1S2, regular, negative for clicks, rubs, or JVD. Abdomen: Soft, nondistended, diffuse tenderness without rebound or guarding. Negative for masses or hepatosplenomegaly. Negative for costovertebral tenderness. Pelvis: Stable nontender. Genitourinary: Deferred. Rectal: Deferred. Extremities: Atraumatic, negative for cords or calf pain. Neurovascular unremarkable. Neuro: Awake, alert, oriented. Cranial nerves II through XII unremarkable. Cerebellum unremarkable. Motor and sensory unremarkable throughout. Exam nonfocal. Diagnostics: []CBC chemistries lipase alcohol levels. Alcohol is elevated otherwise his labs are stable compared to previous Therapeutics: []GI cocktail given Impression: []Alcohol intoxication, patient is here with a sober family member is being discharged Plan: []Follow-up with her primary care physician, I encourage you to stop drinking alcohol Definitive disposition and diagnosis as appropriate pending reevaluation and review of above. abdomen Pain Score (Numeric/FACES): 7 - Related Data Allergies Allergy/AdvReac Type Severity Reaction Status Date / Time Penicillins Allergy Cannot Verified 01/27/17 14:48 Remember Home Meds: Home Meds amLODIPine [Norvasc] 10 mg PO DAILY #30 tablet 03/07/15 [Rx] Venlafaxine HCl 75 mg PO BID 10/23/16 [History] cloNIDine HCl [Catapres] 0.1 mg PO BID PRN 10/23/16 [History] Folic Acid 1 mg PO DAILY #30 tablet 10/28/16 [Rx] Pregabalin [Lyrica] 150 mg PO BID 11/21/16 [History] Cyclobenzaprine [Flexeril] 10 mg PO TID 12/25/16 [History] Hydrochlorothiazide 25 mg PO DAILY 12/25/16 [History] Multivitamin with Folic Acid [One Daily Multivitamin Tablet] 400 mcg PO DAILY # 60 tablet 01/02/17 [Rx] oxyCODONE 10 mg PO Q6H PRN #12 tablet 01/02/17 [Rx] Past Medical History HEENT History: Reports: Other (See Below) Other HEENT History: oral surgery Cardiovascular History: Reports: Hypertension Respiratory History: Reports: Pneumonia, Recurrent Other Respiratory History: Pneumonia Gastrointestinal History: Reports: Pancreatitis Other Gastrointestinal History: Recurrent alcoholic pancreatitis, hx of Necrotizing Pancreatitis Genitourinary History: Reports: None Other Genitourinary History: vasectomy 13 years ago Musculoskeletal History: Reports: Fracture Other Musculoskeletal History: arm Neurological History: Reports: Neuropathy, Peripheral Psychiatric History: Reports: Addiction, Anxiety, Depression Endocrine/Metabolic History: Reports: None Hematologic History: Reports: None Immunologic History: Reports: None Oncologic (Cancer) History: Reports: None Dermatologic History: Reports: None - Infectious Disease History Infectious Disease History: Reports: Chicken Pox - Past Surgical History Head Surgeries/Procedures: Reports: None HEENT Surgical History: Reports: Oral Surgery, Other (See Below) Cardiovascular Surgical History: Reports: None GI Surgical History: Reports: None Male Surgical History: Reports: Vasectomy Endocrine Surgical History: Reports: None Musculoskeletal Surgical History: Reports: Arthroscopic Knee, Other (See Below) Oncologic Surgical History: Reports: None Social & Family History - Family History Family Medical History: Noncontributory HEENT: Reports: None Cardiac: Reports: Heart Failure Respiratory: Reports: Asthma GI: Reports: None : Reports: None OBGYN: Reports: None Musculoskeletal: Reports: None Neurological: Reports: None Psychiatric: Reports: Anxiety Endocrine/Metabolic: Reports: Diabetes, type II Hematologic: Reports: None Immunologic: Reports: None Dermatologic: Reports: None Oncologic: Reports: Colon - Tobacco Use Smoking Status *Q: Never Smoker Years of Tobacco use: 25 Packs/Tins Daily: 1 Used Tobacco, but Quit: No Second Hand Smoke Exposure: Yes - Caffeine Use Caffeine Use: Reports: Coffee - Alcohol Use Days Per Week of Alcohol Use: 7 Number of Drinks Per Day: 3 Total Drinks Per Week: 21 - Recreational Drug Use Recreational Drug Use: No Drug Use in Last 12 Months: No Recreational Drug Type: Reports: Cocaine Other Recreational Drug Type: smoke pot Recreational Drug Use Frequency: Weekly Recreational Drug Last Use: 06/18/16 - Living Situation & Occupation Living situation: Reports: with Significant Other Occupation: Unemployed ED ROS GENERAL - Review of Systems Review Of Systems: See Below (See history of present illness) ED EXAM, GI/ABD - Physical Exam Exam: See Below (See history of present illness) Course - Vital Signs Last Recorded V/S: Last Vital Signs Temp 36.6 C 01/27/17 14:48 Pulse 87 01/27/17 14:48 Resp 18 01/27/17 14:48 BP 128/82 01/27/17 14:48 Pulse Ox 97 01/27/17 14:48 - Orders/Labs/Meds Labs: Laboratory Tests 01/27/17 01/27/17 Range/Units 15:24 15:24 WBC 5.71 (4.0-11.0) K/uL RBC 4.68 (4.50-5.90) M/uL Hgb 14.4 (13.0-17.0) g/dL Hct 40.2 (38.0-50.0) % MCV 85.9 (80.0-98.0) fL MCH 30.8 (27.0-32.0) pg MCHC 35.8 (31.0-37.0) g/dL RDW Std Deviation 37.3 (28.0-62.0) fl RDW Coeff of Conrad 12 (11.0-15.0) % Plt Count 175 (150-400) K/uL MPV 11.20 (7.40-12.00) fL Neut % (Auto) 46.2 L (48.0-80.0) % Lymph % (Auto) 39.6 (16.0-40.0) % Pitt % (Auto) 10.5 (0.0-15.0) % Eos % (Auto) 3.0 (0.0-7.0) % Baso % (Auto) 0.7 (0.0-1.5) % Neut # (Auto) 2.6 (1.4-5.7) K/uL Lymph # (Auto) 2.3 (0.6-2.4) K/uL Pitt # (Auto) 0.6 (0.0-0.8) K/uL Eos # (Auto) 0.2 (0.0-0.7) K/uL Baso # (Auto) 0.0 (0.0-0.1) K/uL Nucleated RBC % 0.0 /100WBC Nucleated RBCs # 0 K/uL Sodium 136 (136-146) mmol/L Potassium 3.4 L (3.5-5.1) mmol/L Chloride 98 (98-110) mmol/L Carbon Dioxide 22 (21-31) mmol/L BUN 9 (6.0-23.0) mg/dL Creatinine 0.9 (0.6-1.5) mg/dL Est Cr Clr Drug Dosing 112.00 mL/min Estimated GFR (MDRD) > 60.0 ml/min Glucose 295 H (60-110) mg/dL Calcium 8.5 L (8.8-10.8) mg/dL Total Bilirubin 0.4 (0.1-1.5) mg/dL AST 97 H (5-40) IU/L ALT 84 H (8-54) IU/L Alkaline Phosphatase 50 (40-150) Total Protein 7.0 (6.0-8.0) g/dL Albumin 4.2 (3.5-5.0) g/dL Globulin 2.8 (2.0-3.5) g/dL Albumin/Globulin Ratio 1.5 (1.3-2.8) Lipase 8 (7-80) U/L Ethyl Alcohol 364.2 mg/dL Meds: Medications Discontinued Medications Generic Name Dose Route Start Last Admin Trade Name Freq PRN Reason Stop Dose Admin Al Hydroxide/Mg Hydroxide 15 0 ml 01/27/17 14:52 01/27/17 15:07 ml/ Metoclopramide HCl 5 mg/ PO 01/27/17 14:53 1 each Lidocaine HCl 5 ml ONETIME ONE Administration Departure - Departure Time of Disposition: 16:14 Disposition: Home, Self-Care 01 Condition: good Clinical Impression: Alcohol intoxication Qualifiers: Complication of substance-induced condition: uncomplicated Qualified Code(s): F10.920 - Alcohol use, unspecified with intoxication, uncomplicated Chronic pancreatitis Qualifiers: Pancreatitis type: alcohol induced Qualified Code(s): K86.0 - Alcohol-induced chronic pancreatitis - Discharge Information Forms: ED Department Discharge Additional Instructions: The following information is given to patients seen in the emergency department who are being discharged to home. This information is to outline your options for follow-up care. We provide all patients seen in our emergency department with a follow-up referral. The need for follow-up, as well as the timing and circumstances, are variable depending upon the specifics of your emergency department visit. If you don't have a primary care physician on staff, we will provide you with a referral. We always advise you to contact your personal physician following an emergency department visit to inform them of the circumstance of the visit and for follow-up with them and/or the need for any referrals to a consulting specialist. The emergency department will also refer you to a specialist when appropriate. This referral assures that you have the opportunity for follow-up care with a specialist. All of these measure are taken in an effort to provide you with optimal care, which includes your follow-up. Under all circumstances we always encourage you to contact your private physician who remains a resource for coordinating your care. When calling for follow-up care, please make the office aware that this follow-up is from your recent emergency room visit. If for any reason you are refused follow-up, please contact the [facility] Emergency Department at and asked to speak to the emergency department charge nurse. [facility] [address] [place] [phone]
[2017-01-27 16:01] LABS: CHLORIDE,CL 98 mmol/L (98-110); SODIUM,NA 136 mmol/L (136-146)
[2017-01-27 16:26] VITALS: BP 111/68
== END 2017-01-27 16:24 | disposition home or self-care (01) ==
LOC: MW.ED 14:37
DX: K86.0 Alcohol-induced chronic pancreatitis (principal); F10.920 Alcohol use, unspecified with intoxication, uncomplicated; I10 Essential (primary) hypertension; F41.9 Anxiety disorder, unspecified; F32.9 Major depressive disorder, single episode, unspecified; Z98.890 Other specified postprocedural states; Z79.899 Other long term (current) drug therapy; Z88.0 Allergy status to penicillin; Z87.01 Personal history of pneumonia (recurrent); Y90.8 Blood alcohol level of 240 mg/100 ml or more
CPT/HCPCS: 36415; 80053; 83690; 85025; 99284; A9270; G0480; 99282

== ENCOUNTER 2017-01-28 10:54 | Emergency (ER) | payer MEDICAID ==
[2017-01-28] MEDS ORDERED: Ondansetron 4 MG/2 ML SDV IVPUSH ONE (11:44)
--- NOTE | 2017-01-28 12:09 | EDM.PDOC ---
ED HPI GENERAL MEDICAL PROBLEM - General Chief Complaint: Drug or Alcohol Abuse Stated Complaint: ALCOHOL DETOX Time Seen by Provider: 01/28/17 11:40 Source of Information: Reports: Patient History Limitations: Reports: No Limitations - History of Present Illness INITIAL COMMENTS - FREE TEXT/NARRATIVE: History of present illness: [41-year-old male presenting with complaints of alcoholism and desire to be admitted to inpatient rehabilitation. Patient acute someone he did not drink today that he might have residual alcohol in the system from yesterday that he went to the local [facility] and they indicated that he needed to be medically detoxed before he could progress with treatment.] Review of systems: As per history of present illness and below otherwise all systems reviewed and negative. Past medical history: As per history of present illness and as reviewed below otherwise noncontributory. Surgical history: As per history of present illness and as reviewed below otherwise noncontributory. Social history: No reported history of drug or alcohol abuse. Family history: As per history of present illness and as reviewed below otherwise noncontributory. Physical exam: HEENT: Atraumatic, normocephalic, pupils reactive, negative for conjunctival pallor or scleral icterus, mucous membranes moist, throat clear, neck supple, nontender, trachea midline. Lungs: Clear to auscultation, breath sounds equal bilaterally, chest nontender. Heart: S1S2, regular, negative for clicks, rubs, or JVD. Abdomen: Soft, nondistended, nontender. Negative for masses or hepatosplenomegaly. Negative for costovertebral tenderness. Pelvis: Stable nontender. Genitourinary: Deferred. Rectal: Deferred. Extremities: Atraumatic, negative for cords or calf pain. Neurovascular unremarkable. Neuro: Awake, alert, oriented. Cranial nerves II through XII unremarkable. Cerebellum unremarkable. Motor and sensory unremarkable throughout. Exam nonfocal. Clinical assessment is benign save that of the desire to be medically detoxified. Patient is medically stable while in the ED. Vital signs are stable, no nausea, no vomiting, no presentation of drugs or alcohol and tox screen is negative Diagnostics: [Alcohol and drug] Therapeutics: [IV, Zofran] Impression: [Desire for alcohol detox] Plan: [Transfer to [facility]] Definitive disposition and diagnosis as appropriate pending reevaluation and review of above. Lower Back Pain Score (Numeric/FACES): 4 - Related Data Allergies Allergy/AdvReac Type Severity Reaction Status Date / Time Penicillins Allergy Cannot Verified 01/27/17 14:48 Remember Home Meds: Home Meds amLODIPine [Norvasc] 10 mg PO DAILY #30 tablet 03/07/15 [Rx] Venlafaxine HCl 75 mg PO BID 10/23/16 [History] cloNIDine HCl [Catapres] 0.1 mg PO BID PRN 10/23/16 [History] Folic Acid 1 mg PO DAILY #30 tablet 10/28/16 [Rx] Pregabalin [Lyrica] 150 mg PO BID 11/21/16 [History] Cyclobenzaprine [Flexeril] 10 mg PO TID 12/25/16 [History] Hydrochlorothiazide 25 mg PO DAILY 12/25/16 [History] Multivitamin with Folic Acid [One Daily Multivitamin Tablet] 400 mcg PO DAILY # 60 tablet 01/02/17 [Rx] oxyCODONE 10 mg PO Q6H PRN #12 tablet 01/02/17 [Rx] Past Medical History HEENT History: Reports: Other (See Below) Other HEENT History: oral surgery Cardiovascular History: Reports: Hypertension Respiratory History: Reports: Pneumonia, Recurrent Other Respiratory History: Pneumonia Gastrointestinal History: Reports: Pancreatitis Other Gastrointestinal History: Recurrent alcoholic pancreatitis, hx of Necrotizing Pancreatitis Genitourinary History: Reports: None Other Genitourinary History: vasectomy 13 years ago Musculoskeletal History: Reports: Fracture Other Musculoskeletal History: arm Neurological History: Reports: Neuropathy, Peripheral Psychiatric History: Reports: Addiction, Anxiety, Depression Endocrine/Metabolic History: Reports: None Hematologic History: Reports: None Immunologic History: Reports: None Oncologic (Cancer) History: Reports: None Dermatologic History: Reports: None - Infectious Disease History Infectious Disease History: Reports: Chicken Pox - Past Surgical History Head Surgeries/Procedures: Reports: None HEENT Surgical History: Reports: Oral Surgery, Other (See Below) Cardiovascular Surgical History: Reports: None GI Surgical History: Reports: None Male Surgical History: Reports: Vasectomy Endocrine Surgical History: Reports: None Musculoskeletal Surgical History: Reports: Arthroscopic Knee, Other (See Below) Oncologic Surgical History: Reports: None Social & Family History - Family History Family Medical History: Noncontributory HEENT: Reports: None Cardiac: Reports: Heart Failure Respiratory: Reports: Asthma GI: Reports: None : Reports: None OBGYN: Reports: None Musculoskeletal: Reports: None Neurological: Reports: None Psychiatric: Reports: Anxiety Endocrine/Metabolic: Reports: Diabetes, type II Hematologic: Reports: None Immunologic: Reports: None Dermatologic: Reports: None Oncologic: Reports: Colon - Tobacco Use Smoking Status *Q: Never Smoker Years of Tobacco use: 25 Packs/Tins Daily: 1 Used Tobacco, but Quit: No Second Hand Smoke Exposure: No - Caffeine Use Caffeine Use: Reports: None - Alcohol Use Days Per Week of Alcohol Use: 7 Number of Drinks Per Day: 10 Total Drinks Per Week: 70 Date of Last Drink: 01/27/17 Time of Last Drink: 19:00 - Recreational Drug Use Recreational Drug Use: No Drug Use in Last 12 Months: No Recreational Drug Type: Reports: Cocaine Other Recreational Drug Type: smoke pot Recreational Drug Use Frequency: Weekly Recreational Drug Last Use: 06/18/16 - Living Situation & Occupation Living situation: Reports: with Significant Other Occupation: Unemployed ED ROS GENERAL - Review of Systems Review Of Systems: See Below (See history of present illness) ED EXAM, GENERAL - Physical Exam Exam: See Below (See history of present illness) Course - Vital Signs Last Recorded V/S: Last Vital Signs Temp 36.9 C 01/28/17 12:17 Pulse 71 01/28/17 13:36 Resp 20 01/28/17 13:36 BP 132/79 01/28/17 13:36 Pulse Ox 97 01/28/17 13:36 - Orders/Labs/Meds Orders: Active Orders 24 hr Category Date Time Status EKG Documentation Completion [RC] STAT Care 01/28/17 11:45 Active FREE T3 [REF] Stat Lab 01/28/17 11:55 Received Labs: Laboratory Tests 01/28/17 01/28/17 01/28/17 Range/Units 11:55 11:55 11:55 WBC 7.95 (4.0-11.0) K/uL RBC 4.68 (4.50-5.90) M/uL Hgb 14.5 (13.0-17.0) g/dL Hct 41.0 (38.0-50.0) % MCV 87.6 (80.0-98.0) fL MCH 31.0 (27.0-32.0) pg MCHC 35.4 (31.0-37.0) g/dL RDW Std Deviation 39.6 (28.0-62.0) fl RDW Coeff of Conrad 12 (11.0-15.0) % Plt Count 157 (150-400) K/uL MPV 11.10 (7.40-12.00) fL Neut % (Auto) 72.2 (48.0-80.0) % Lymph % (Auto) 18.5 (16.0-40.0) % Saunders % (Auto) 8.1 (0.0-15.0) % Eos % (Auto) 0.8 (0.0-7.0) % Baso % (Auto) 0.4 (0.0-1.5) % Neut # (Auto) 5.8 H (1.4-5.7) K/uL Lymph # (Auto) 1.5 (0.6-2.4) K/uL Saunders # (Auto) 0.6 (0.0-0.8) K/uL Eos # (Auto) 0.1 (0.0-0.7) K/uL Baso # (Auto) 0.0 (0.0-0.1) K/uL Nucleated RBC % 0.0 /100WBC Nucleated RBCs # 0 K/uL Sodium 141 (136-146) mmol/L Potassium 3.6 (3.5-5.1) mmol/L Chloride 100 (98-110) mmol/L Carbon Dioxide 27 (21-31) mmol/L BUN 12 (6.0-23.0) mg/dL Creatinine 0.8 (0.6-1.5) mg/dL Est Cr Clr Drug Dosing 137.81 mL/min Estimated GFR (MDRD) > 60.0 ml/min Glucose 185 H (60-110) mg/dL Hemoglobin A1c 8.7 H (0.0-6.0) % Calcium 9.1 (8.8-10.8) mg/dL Magnesium 0.8 L (1.5-2.3) mEq/L Total Bilirubin 0.6 (0.1-1.5) mg/dL AST 95 H (5-40) IU/L ALT 96 H (8-54) IU/L Alkaline Phosphatase 47 (40-150) Total Protein 7.0 (6.0-8.0) g/dL Albumin 4.3 (3.5-5.0) g/dL Globulin 2.7 (2.0-3.5) g/dL Albumin/Globulin Ratio 1.6 (1.3-2.8) TSH 3rd Generation 0.83 (0.47-5.0) uIU/mL Urine Color Urine Appearance Urine pH (5.0-8.0) Ur Specific Peebles (1.001-1.035) Urine Protein (NEGATIVE) mg/dL Urine Glucose (UA) (NEGATIVE) mg/dL Urine Ketones (NEGATIVE) mg/dL Urine Occult Blood (NEGATIVE) Urine Nitrite (NEGATIVE) Urine Bilirubin (NEGATIVE) Urine Ictotest Urine Urobilinogen (<2.0) EU/dL Ur Leukocyte Esterase (NEGATIVE) Urine RBC (0-2/HPF) Urine WBC (0-5/HPF) Ur Epithelial Cells (NONE-FEW) Urine Bacteria (NEGATIVE) Urine Mucus (NONE-MOD) Salicylates < 5.0 (0-20) mg/dL Urine Opiates Screen (NEGATIVE) Ur Oxycodone Screen (NEGATIVE) Urine Methadone Screen (NEGATIVE) Acetaminophen < 3.0 ug/mL Ur Barbiturates Screen (NEGATIVE) Ur Phencyclidine Scrn (NEGATIVE) Ur Amphetamine Screen (NEGATIVE) U Methamphetamines Scrn (NEGATIVE) U Benzodiazepines Scrn (NEGATIVE) U Cocaine Metab Screen (NEGATIVE) U Marijuana (THC) Screen (NEGATIVE) Ethyl Alcohol < 10.0 mg/dL 01/28/17 01/28/17 Range/Units 12:01 12:01 WBC (4.0-11.0) K/uL RBC (4.50-5.90) M/uL Hgb (13.0-17.0) g/dL Hct (38.0-50.0) % MCV (80.0-98.0) fL MCH (27.0-32.0) pg MCHC (31.0-37.0) g/dL RDW Std Deviation (28.0-62.0) fl RDW Coeff of Conrad (11.0-15.0) % Plt Count (150-400) K/uL MPV (7.40-12.00) fL Neut % (Auto) (48.0-80.0) % Lymph % (Auto) (16.0-40.0) % Saunders % (Auto) (0.0-15.0) % Eos % (Auto) (0.0-7.0) % Baso % (Auto) (0.0-1.5) % Neut # (Auto) (1.4-5.7) K/uL Lymph # (Auto) (0.6-2.4) K/uL Saunders # (Auto) (0.0-0.8) K/uL Eos # (Auto) (0.0-0.7) K/uL Baso # (Auto) (0.0-0.1) K/uL Nucleated RBC % /100WBC Nucleated RBCs # K/uL Sodium (136-146) mmol/L Potassium (3.5-5.1) mmol/L Chloride (98-110) mmol/L Carbon Dioxide (21-31) mmol/L BUN (6.0-23.0) mg/dL Creatinine (0.6-1.5) mg/dL Est Cr Clr Drug Dosing mL/min Estimated GFR (MDRD) ml/min Glucose (60-110) mg/dL Hemoglobin A1c (0.0-6.0) % Calcium (8.8-10.8) mg/dL Magnesium (1.5-2.3) mEq/L Total Bilirubin (0.1-1.5) mg/dL AST (5-40) IU/L ALT (8-54) IU/L Alkaline Phosphatase (40-150) Total Protein (6.0-8.0) g/dL Albumin (3.5-5.0) g/dL Globulin (2.0-3.5) g/dL Albumin/Globulin Ratio (1.3-2.8) TSH 3rd Generation (0.47-5.0) uIU/mL Urine Color YELLOW Urine Appearance HAZY Urine pH 7.0 (5.0-8.0) Ur Specific Peebles 1.020 (1.001-1.035) Urine Protein TRACE (NEGATIVE) mg/dL Urine Glucose (UA) 500 H (NEGATIVE) mg/dL Urine Ketones >=80 (NEGATIVE) mg/dL Urine Occult Blood NEGATIVE (NEGATIVE) Urine Nitrite NEGATIVE (NEGATIVE) Urine Bilirubin SMALL H (NEGATIVE) Urine Ictotest NEGATIVE Urine Urobilinogen 1.0 (<2.0) EU/dL Ur Leukocyte Esterase NEGATIVE (NEGATIVE) Urine RBC 0-2 (0-2/HPF) Urine WBC 1-3 (0-5/HPF) Ur Epithelial Cells RARE (NONE-FEW) Urine Bacteria FEW (NEGATIVE) Urine Mucus LIGHT (NONE-MOD) Salicylates (0-20) mg/dL Urine Opiates Screen NEGATIVE (NEGATIVE) Ur Oxycodone Screen NEGATIVE (NEGATIVE) Urine Methadone Screen NEGATIVE (NEGATIVE) Acetaminophen ug/mL Ur Barbiturates Screen NEGATIVE (NEGATIVE) Ur Phencyclidine Scrn NEGATIVE (NEGATIVE) Ur Amphetamine Screen NEGATIVE (NEGATIVE) U Methamphetamines Scrn NEGATIVE (NEGATIVE) U Benzodiazepines Scrn NEGATIVE (NEGATIVE) U Cocaine Metab Screen NEGATIVE (NEGATIVE) U Marijuana (THC) Screen NEGATIVE (NEGATIVE) Ethyl Alcohol mg/dL Meds: Medications Discontinued Medications Generic Name Dose Route Start Last Admin Trade Name Freq PRN Reason Stop Dose Admin Sodium Chloride 1,000 mls @ 999 mls/hr 01/28/17 11:44 01/28/17 12:17 Normal Saline IV 01/28/17 12:44 999 mls/hr STAT ONE Administration Ondansetron HCl 8 mg 01/28/17 11:44 01/28/17 12:17 Zofran IVPUSH 01/28/17 11:45 8 mg ONETIME ONE Administration Departure - Departure Time of Disposition: 13:49 Disposition: DC/Tfer to Inpt Rehab Fac 62 Condition: good Clinical Impression: Alcohol dependence Qualifiers: Substance use status: uncomplicated Qualified Code(s): F10.20 - Alcohol dependence, uncomplicated - Discharge Information Forms: ED Department Discharge - My Orders Last 24 Hours: My Active Orders 01/28/17 11:45 EKG Documentation Completion [RC] STAT 01/28/17 11:55 FREE T3 [REF] Stat - Assessment/Plan Last 24 Hours: My Active Orders 01/28/17 11:45 EKG Documentation Completion [RC] STAT 01/28/17 11:55 FREE T3 [REF] Stat
[2017-01-28] MEDS: Sodium Chloride 0.9% 1,000 ML IV ONE ×2 (12:17→14:13)
[2017-01-28 12:39] LABS: CHLORIDE,CL 100 mmol/L (98-110); SODIUM,NA 141 mmol/L (136-146)
[2017-01-28 12:51] LABS: ACETAMINOPHEN < 3.0 ug/mL
[2017-01-28] MEDS ORDERED: chlordiazePOXIDE 10 MG Cap PO ONE (14:10)
[2017-01-28 14:27] VITALS: BP 141/87
== END 2017-01-28 14:25 ==
LOC: MW.ED 10:54
DX: F10.20 Alcohol dependence, uncomplicated (principal); I10 Essential (primary) hypertension; F41.9 Anxiety disorder, unspecified; F32.9 Major depressive disorder, single episode, unspecified; Z98.890 Other specified postprocedural states; Z98.52 Vasectomy status; Z79.899 Other long term (current) drug therapy; Z88.0 Allergy status to penicillin; Y90.0 Blood alcohol level of less than 20 mg/100 ml
CPT/HCPCS: 80053; 80305; 81001; 83036; 83735; 84443; 84481; 85025; 93005; 96361; 96374; 99284; A9270; G0480; J2405; J7040; 36415; 99285

== ENCOUNTER 2018-09-04 07:59 | Emergency (ER) | payer MEDICAID ==
--- NOTE | 2018-09-04 08:07 | EDM.PDOC ---
ED HPI GENERAL MEDICAL PROBLEM - General Stated Complaint: FELL AND HIT RIBS Time Seen by Provider: 09/04/18 08:04 - History of Present Illness INITIAL COMMENTS - FREE TEXT/NARRATIVE: HISTORY AND PHYSICAL: History of present illness: Past 42-year-old white male presents with a concern of right rib injury this occurred when he was brushing his teeth and his sink collapsed he denies other trauma or concern. Review of systems: As per history of present illness and below otherwise all systems reviewed and negative. Past medical history: As per history of present illness and as reviewed below otherwise noncontributory. Surgical history: As per history of present illness and as reviewed below otherwise noncontributory. Social history: No reported history of drug or alcohol abuse. Family history: As per history of present illness and as reviewed below otherwise noncontributory. Physical exam: HEENT: Atraumatic, normocephalic, pupils reactive, negative for conjunctival pallor or scleral icterus, mucous membranes moist, throat clear, neck supple, nontender, trachea midline. Lungs: Clear to auscultation, breath sounds equal bilaterally, chest tenderness in the region of the right anterior axillary line mid ribs approximately 5370 is no crepitation no point tenderness. Heart: S1S2, regular, negative for clicks, rubs, or JVD. Abdomen: Soft, nondistended, nontender. Negative for masses or hepatosplenomegaly. Negative for costovertebral tenderness. Pelvis: Stable nontender. Genitourinary: Deferred. Rectal: Deferred. Extremities: Atraumatic, negative for cords or calf pain. Neurovascular unremarkable. Neuro: Awake, alert, oriented. Cranial nerves II through XII unremarkable. Cerebellum unremarkable. Motor and sensory unremarkable throughout. Exam nonfocal. Diagnostics: Chest x-ray with right rib Therapeutics: None Impression: #1 right rib injury Definitive disposition and diagnosis as appropriate pending reevaluation and review of above. right ribs Pain Score (Numeric/FACES): 8 - Related Data Allergies Allergy/AdvReac Type Severity Reaction Status Date / Time Penicillins Allergy Cannot Verified 01/27/17 14:48 Remember Home Meds: Home Meds Amitriptyline [Elavil] 50 mg PO BEDTIME 09/04/18 [History] Insulin Aspart [NovoLOG] 5 unit SQ TIDMEALS 09/04/18 [History] Insulin Detemir [Levemir Flextouch] 70 unit SQ BID 09/04/18 [History] Past Medical History HEENT History: Reports: Other (See Below) Other HEENT History: oral surgery Cardiovascular History: Reports: Hypertension Respiratory History: Reports: Pneumonia, Recurrent Other Respiratory History: Pneumonia Gastrointestinal History: Reports: Pancreatitis Other Gastrointestinal History: Recurrent alcoholic pancreatitis, hx of Necrotizing Pancreatitis Genitourinary History: Reports: None Other Genitourinary History: vasectomy 13 years ago Musculoskeletal History: Reports: Fracture Other Musculoskeletal History: arm Neurological History: Reports: Neuropathy, Peripheral Psychiatric History: Reports: Addiction, Anxiety, Depression Endocrine/Metabolic History: Reports: None Hematologic History: Reports: None Immunologic History: Reports: None Oncologic (Cancer) History: Reports: None Dermatologic History: Reports: None - Infectious Disease History Infectious Disease History: Reports: Chicken Pox - Past Surgical History Head Surgeries/Procedures: Reports: None HEENT Surgical History: Reports: Oral Surgery, Other (See Below) Cardiovascular Surgical History: Reports: None GI Surgical History: Reports: None Male Surgical History: Reports: Vasectomy Endocrine Surgical History: Reports: None Musculoskeletal Surgical History: Reports: Arthroscopic Knee, Other (See Below) Oncologic Surgical History: Reports: None Social & Family History - Family History Family Medical History: Noncontributory HEENT: Reports: None Cardiac: Reports: Heart Failure Respiratory: Reports: Asthma GI: Reports: None : Reports: None OBGYN: Reports: None Musculoskeletal: Reports: None Neurological: Reports: None Psychiatric: Reports: Anxiety Endocrine/Metabolic: Reports: Diabetes, type II Hematologic: Reports: None Immunologic: Reports: None Dermatologic: Reports: None Oncologic: Reports: Colon - Caffeine Use Caffeine Use: Reports: None - Living Situation & Occupation Living situation: Reports: with Significant Other Occupation: Unemployed ED ROS GENERAL - Review of Systems Review Of Systems: ROS reveals no pertinent complaints other than HPI. ED EXAM, GENERAL - Physical Exam Exam: See Below (See dictation) Course - Vital Signs Text/Narrative:: Patient noted to have multiple right-sided rib fractures approximately 3 right lateral ribs is no pneumothorax no other findings patient was given hydrocodone 10 mg by mouth in the emergency department requests discharge home he was educated on some spirometry per respiratory therapy and will be discharged on hydrocodone be taken as prescribed follow up with his private medical doctor and return as needed as discussed Last Recorded V/S: Last Vital Signs Temp 37.1 C 09/04/18 08:10 Pulse 114 H 09/04/18 08:10 Resp 16 09/04/18 08:10 BP 116/82 09/04/18 08:10 Pulse Ox 96 09/04/18 08:10 - Orders/Labs/Meds Labs: Laboratory Tests 09/04/18 Range/Units 08:03 POC Glucose 201 H (60-110) mg/dL Meds: Medications Discontinued Medications Generic Name Dose Route Start Last Admin Trade Name Chandrika PRN Reason Stop Dose Admin Hydrocodone Bitart/Acetaminophen 1 tab 09/04/18 10:11 [place] 325-10 Mg PO 09/04/18 10:12 ONETIME ONE Departure - Departure Time of Disposition: 08:05 Disposition: Home, Self-Care 01 Condition: Good Clinical Impression: Rib injury, Ribs, multiple fractures - Discharge Information Additional Instructions: The following information is given to patients seen in the emergency department who are being discharged to home. This information is to outline your options for follow-up care. We provide all patients seen in our emergency department with a follow-up referral. The need for follow-up, as well as the timing and circumstances, are variable depending upon the specifics of your emergency department visit. If you don't have a primary care physician on staff, we will provide you with a referral. We always advise you to contact your personal physician following an emergency department visit to inform them of the circumstance of the visit and for follow-up with them and/or the need for any referrals to a consulting specialist. The emergency department will also refer you to a specialist when appropriate. This referral assures that you have the opportunity for followup care with a specialist. All of these measure are taken in an effort to provide you with optimal care, which includes your followup. Under all circumstances we always encourage you to contact your private physician who remains a resource for coordinating your care. When calling for followup care, please make the office aware that this follow-up is from your recent emergency room visit. If for any reason you are refused follow-up, please contact the [facility] emergency department at and asked to speak to the emergency department charge nurse. Hydrocodone as prescribed continue current medications follow primary medical doctor as needed as discussed and return as needed as discussed
--- NOTE | 2018-09-04 09:47 | CR ---
EXAMINATION: PA chest and right RIBS HISTORY: Fall. FINDINGS: The trachea is midline. The cardiomediastinal silhouette is within normal limits. No pulmonary infiltrates, effusions or pneumothorax. Osseous structures appear unremarkable. There are at least 3 lower right lateral rib fractures identified. IMPRESSION: 1. At least 3 lower right lateral rib fractures noted without a pleural effusion or pneumothorax.
[2018-09-04] MEDS ORDERED: Acetaminophen/HYDROcodone 325-10 MG Tab PO ONE (10:11)
[2018-09-04 10:19] VITALS: BP 160/100
== END 2018-09-04 10:40 | disposition home or self-care (01) ==
LOC: MW.ED 07:59
DX: S22.41XA Multiple fractures of ribs, right side, initial encounter for closed fracture (principal); I10 Essential (primary) hypertension; F32.9 Major depressive disorder, single episode, unspecified; F17.290 Nicotine dependence, other tobacco product, uncomplicated; F41.9 Anxiety disorder, unspecified; Z88.0 Allergy status to penicillin; Z79.899 Other long term (current) drug therapy; Z79.4 Long term (current) use of insulin; W18.30XA Fall on same level, unspecified, initial encounter
CPT/HCPCS: 71101; 82962; 99284; A9270

== ENCOUNTER 2018-09-07 10:08 | Emergency (ER) | payer MEDICAID ==
--- NOTE | 2018-09-07 10:20 | EDM.PDOC ---
ED HPI GENERAL MEDICAL PROBLEM - General Chief Complaint: General Stated Complaint: INJURED RIBS Time Seen by Provider: 09/07/18 10:11 - History of Present Illness INITIAL COMMENTS - FREE TEXT/NARRATIVE: HISTORY AND PHYSICAL: History of present illness: Patient is a 42-year-old white male who was seen last Friday by myself for right rib injuries in which he sustained multiple rib fractures and right side he was discharged home on hydrocodone he returns now unable to secure follow-up with private medical doctor for now and concern of continued pain. Review of systems: As per history of present illness and below otherwise all systems reviewed and negative. Past medical history: As per history of present illness and as reviewed below otherwise noncontributory. Surgical history: As per history of present illness and as reviewed below otherwise noncontributory. Social history: No reported history of drug or alcohol abuse. Family history: As per history of present illness and as reviewed below otherwise noncontributory. Physical exam: HEENT: Atraumatic, normocephalic, pupils reactive, negative for conjunctival pallor or scleral icterus, mucous membranes moist, throat clear, neck supple, nontender, trachea midline. Lungs: Clear to auscultation, breath sounds equal bilaterally, tenderness to palpation of his right lower ribs no crepitation noted Heart: S1S2, regular, negative for clicks, rubs, or JVD. Abdomen: Soft, nondistended, nontender. Negative for masses or hepatosplenomegaly. Negative for costovertebral tenderness. Pelvis: Stable nontender. Genitourinary: Deferred. Rectal: Deferred. Extremities: Atraumatic, negative for cords or calf pain. Neurovascular unremarkable. Neuro: Awake, alert, oriented. Cranial nerves II through XII unremarkable. Cerebellum unremarkable. Motor and sensory unremarkable throughout. Exam nonfocal. Diagnostics: Chest x-ray Therapeutics: Toradol 60 mg IM Impression: #1 history of right rib injury with multiple fractures Definitive disposition and diagnosis as appropriate pending reevaluation and review of above. - Related Data Allergies Allergy/AdvReac Type Severity Reaction Status Date / Time Penicillins Allergy Cannot Verified 09/07/18 10:21 Remember Home Meds: Home Meds Amitriptyline [Elavil] 50 mg PO BEDTIME 09/04/18 [History] Insulin Aspart [NovoLOG] 10 unit SQ TIDMEALS 09/04/18 [History] Insulin Detemir [Levemir Flextouch] 20 unit SQ BID 09/04/18 [History] Acetaminophen/HYDROcodone [[place] 325-10 MG] 1 tab PO Q4HR PRN 09/07/18 [History] Past Medical History HEENT History: Reports: Other (See Below) Other HEENT History: oral surgery Cardiovascular History: Reports: Hypertension Respiratory History: Reports: Pneumonia, Recurrent Other Respiratory History: Pneumonia Gastrointestinal History: Reports: Pancreatitis Other Gastrointestinal History: Recurrent alcoholic pancreatitis, hx of Necrotizing Pancreatitis Genitourinary History: Reports: None Other Genitourinary History: vasectomy 13 years ago Musculoskeletal History: Reports: Fracture Other Musculoskeletal History: arm Neurological History: Reports: Neuropathy, Peripheral Psychiatric History: Reports: Addiction, Anxiety, Depression Endocrine/Metabolic History: Reports: None Hematologic History: Reports: None Immunologic History: Reports: None Oncologic (Cancer) History: Reports: None Dermatologic History: Reports: None - Infectious Disease History Infectious Disease History: Reports: Chicken Pox - Past Surgical History Head Surgeries/Procedures: Reports: None HEENT Surgical History: Reports: Oral Surgery, Other (See Below) Cardiovascular Surgical History: Reports: None GI Surgical History: Reports: None Male Surgical History: Reports: Vasectomy Endocrine Surgical History: Reports: None Musculoskeletal Surgical History: Reports: Arthroscopic Knee, Other (See Below) Oncologic Surgical History: Reports: None Social & Family History - Family History Family Medical History: Noncontributory HEENT: Reports: None Cardiac: Reports: Heart Failure Respiratory: Reports: Asthma GI: Reports: None : Reports: None OBGYN: Reports: None Musculoskeletal: Reports: None Neurological: Reports: None Psychiatric: Reports: Anxiety Endocrine/Metabolic: Reports: Diabetes, type II Hematologic: Reports: None Immunologic: Reports: None Dermatologic: Reports: None Oncologic: Reports: Colon - Caffeine Use Caffeine Use: Reports: None - Living Situation & Occupation Living situation: Reports: with Significant Other Occupation: Unemployed ED ROS GENERAL - Review of Systems Review Of Systems: ROS reveals no pertinent complaints other than HPI. ED EXAM, GENERAL - Physical Exam Exam: See Below (See dictation) Course - Vital Signs Last Recorded V/S: Last Vital Signs Temp 36.1 C 09/07/18 10:21 Pulse 87 09/07/18 10:21 Resp 18 09/07/18 10:21 BP 151/103 H 09/07/18 10:21 Pulse Ox 95 09/07/18 10:21 - Orders/Labs/Meds Meds: Medications Discontinued Medications Generic Name Dose Route Start Last Admin Trade Name Chandrika PRN Reason Stop Dose Admin Ketorolac Tromethamine 60 mg 09/07/18 10:30 09/07/18 10:49 Toradol IM 09/07/18 10:31 60 mg ONETIME ONE Administration Departure - Departure Time of Disposition: 12:09 Disposition: Home, Self-Care 01 Condition: Good Clinical Impression: Rib fractures - Discharge Information Referrals: Jacques Espinoza MD [Primary Care Provider] - Forms: ED Department Discharge Additional Instructions: The following information is given to patients seen in the emergency department who are being discharged to home. This information is to outline your options for follow-up care. We provide all patients seen in our emergency department with a follow-up referral. The need for follow-up, as well as the timing and circumstances, are variable depending upon the specifics of your emergency department visit. If you don't have a primary care physician on staff, we will provide you with a referral. We always advise you to contact your personal physician following an emergency department visit to inform them of the circumstance of the visit and for follow-up with them and/or the need for any referrals to a consulting specialist. The emergency department will also refer you to a specialist when appropriate. This referral assures that you have the opportunity for followup care with a specialist. All of these measure are taken in an effort to provide you with optimal care, which includes your followup. Under all circumstances we always encourage you to contact your private physician who remains a resource for coordinating your care. When calling for followup care, please make the office aware that this follow-up is from your recent emergency room visit. If for any reason you are refused follow-up, please contact the [facility] emergency department at and asked to speak to the emergency department charge nurse. Ultram is prescribed follow primary medical doctor as needed as discussed and return as needed as discussed
[2018-09-07] MEDS ORDERED: Ketorolac 60 MG/2 ML SDV IM ONE (10:30)
--- NOTE | 2018-09-07 11:22 | CR ---
EXAMINATION: Two-view chest (PA and Lateral views). HISTORY: Shortness of breath. FINDINGS: The trachea is midline. The cardiomediastinal silhouette is within normal limits. Minimal left basilar atelectasis and/or infiltrate. No pleural effusion or pneumothorax. Osseous structures appear unremarkable. IMPRESSION: Minimal left basilar atelectasis and/or infiltrate.
[2018-09-07 12:22] VITALS: BP 154/95
== END 2018-09-07 12:22 | disposition home or self-care (01) ==
LOC: MW.ED 10:08
DX: S22.41XA Multiple fractures of ribs, right side, initial encounter for closed fracture (principal); I10 Essential (primary) hypertension; Z88.0 Allergy status to penicillin; Z79.4 Long term (current) use of insulin; X58.XXXA Exposure to other specified factors, initial encounter
CPT/HCPCS: 71046; 96372; 99283; J1885